=== PATIENT | male | born 1950 | race Caucasian/White ===

== ENCOUNTER 2018-10-13 10:06 | Emergency (ER) | payer MEDICARE, SELFPAY ==
[2018-10-13] VITALS (34 sets, daily range): BP systolic 96–116; BP diastolic 41–66; PULSE 86–105; RESP 16–17; TEMP 37.2–37.7; O2SAT 93–100
--- NOTE | 2018-10-13 10:08 | W.ED.GENAD ---
Discharge Plan Disposition Patient Disposition: [facility] Condition: Stable Discharge Details Chief Complaint: Chest Pain Clinical Impression: Pericarditis, Pericardial effusion, Chest pain Primary Care Provider: Guillaume Kline ED Provider: Valorie Meneses Home Meds and New Rx's Prescriptions: No Action clonazepam 1 mg tablet 1 mg PO BID RF: 0 benztropine 0.5 mg tablet 0.5 mg PO BID RF: 0 quetiapine 100 MG tablet 200 mg PO DAILY Qty: 180 RF: 3 metformin 1,000 MG tablet 1,000 mg PO BID Qty: 180 RF: 3 atorvastatin 10 mg tablet 10 mg PO QPM Qty: 30 RF: 11 duloxetine [Cymbalta] 60 MG capsule,delayed release(DR/EC) 60 mg PO DAILY RF: 0 aripiprazole [Abilify] 30 MG tablet 30 mg DAILY RF: 0 Discharge Data Discharge Date/Time-TO BE ENTERED AT DEPARTURE: 10/13/18 14:18 Medical Decision Making 68yo M w/ a h/o schizophrenia, anxiety, depression and pericarditis who presents with constant substernal achy chest pain that started while eating last night. Pain worse with deep breath, walking sitting up. Currently admits to some shortness of breath. Blood pressure mildly hypertensive, heart rate 104, temp 99.8, O2 sat 90% on room air, increased to 96% on 2L. EKG notes a rate of 111, sinus, EKG questions and ST elevation in inferior lateral leads. There is a questionable less than [address] elevation 2, 3, aVF with T wave inversion in aVL. This appear significantly different than EKG from 2015. Will send EKGs to [facility] cardiology for review. 1100 -- d/w [facility] transfer center -does not appear consistent with ST elevation. If concerned about STEMI, recommend treatment with Plavix and heparin. Will repeat EKG at this time. Labs reviewed and note a white blood cell count of 13, hemoglobin 10.1, troponin negative, electrolytes within normal limits. 1105 -- 2nd EKG notes a slight increase in ST elevation and II, III and aVF but appears more c/w IA depression in inferolateral leads. EKG sent to [facility] cardiology. Plan was for CT chest due to pleuritic pain. Will obtain stat portable chest x-ray. D/w [facility] cardiology - there is a questionable ST elevation in lead II but this is not continuous and agrees that this appears more consistent with IA depression in the inferolateral leads. Presentation appears more likely consistent with pericarditis. Does still recommend treatment with plavix and heparin, trending troponins. 1230 --CT negative for PE. CT notes a 14 mm moderate-sized pericardial effusion. Also noted multiple bilateral pulmonary nodules and lymphadenopathy at the right hilum. Chest x-ray negative. 1240 --discussed with hospitalist. Does not feel comfortable with keeping patient here at this time as there is no echo capability or cardiology available until Monday. 1300 -- d/w [facility] cardiology -agrees that this appears more consistent with pericarditis with pericardial effusion. Recommends holding heparin drip at this time. Patient has received 1 L IV fluids and blood pressure still slightly low 96/48. Heart rate improved to 90s. Accepts patient for transfer to [facility] ED. Accepting physician Dr. Javier Santiago. Medical Records Medical records reviewed: Yes I reviewed the patient's medical records. ECG Data Attestation: I personally reviewed and interpreted this ECG (s) as follows: Interpretation: 1011 -- rate of 111, sinus, questionable less than [address] elevation in 2, 3, aVF. IA depression in II, III, aVF, V5-6. T wave inversion in aVL. QTC 429. QRS 98. 1104 -- rate of 99, sinus, questionable [address] elevation noted in 2, 3, aVF, Questionable less than [address] elevation in V5 and V6. Appears more consistent with IA depression in II, III, aVF, V5-[address] elevation. T wave inversion in aVL. QTc 416. QRS 82. HPI General Mode of arrival: EMS. Date/Time Provider Initiated Documentation: 10/13/18 10:11. Limitations to Documentation: no limitations. Information obtained by: patient. HPI Narrative: Patient is a 60-year-old male with history of anxiety, depression, schizophrenia and pericarditis who presents with chest pain since last night. He describes pain is constant, achy, substernal which started when he was eating [employer] last evening. He states the pain is worse with sitting up, walking around and with deep breath. He states that he takes a deep breath the pain radiates from his middle chest out to both sides. He states the pain is better with rest and when he exhales. He was given nitro in route per EMS and admits to some relief but states the pain is returned and is now 5/10. He states it has been 5/10 at its worst. He states he did not sleep at all last night due to the pain. He admits to waking up this morning and feeling dizzy. He also admits to intermittent shortness of breath. He states he possibly had flu 2 months ago but states this was untreated. He does admit to occasional cough with white or yellow sputum. He denies syncope, nausea, vomiting, recent travel, recent surgery, or leg pain or swelling. He was also given 324 mg of aspirin in route per EMS. Related Data Home Medications Medication Instructions Recorded Confirmed duloxetine [Cymbalta] 60 mg PO DAILY 10/13/12 10/13/18 aripiprazole [Abilify] 30 mg DAILY 08/07/14 10/13/18 quetiapine 200 mg PO DAILY #180 tab-cap 06/30/17 10/13/18 metformin 1,000 mg PO BID #180 tab-cap 01/02/18 10/13/18 benztropine 0.5 mg tablet 0.5 mg PO BID 05/02/18 10/13/18 clonazepam 1 mg tablet 1 mg PO BID 05/02/18 10/13/18 atorvastatin 10 mg tablet 10 mg PO QPM #30 tab 08/01/18 10/13/18 Previous Rx's Medication Instructions Recorded quetiapine 200 mg PO DAILY #180 tab-cap 06/30/17 metformin 1,000 mg PO BID #180 tab-cap 01/02/18 atorvastatin 10 mg tablet 10 mg PO QPM #30 tab 08/01/18 Allergies Allergy/AdvReac Type Severity Reaction Status Date / Time No Known Allergies Allergy Unverified 05/02/18 14:53 Review of Systems Review of Systems All systems reviewed & are unremarkable except as noted in HPI and below Constitutional Reports as per HPI, Reports chills and Denies fever(s) Eyes Denies blurry vision ENT Reports dizziness, Denies sore throat and Denies throat swelling Cardiovascular Reports chest pain, Reports chest pain with activity and Reports dyspnea Respiratory Denies cough, Reports pain on inspiration and Reports dyspnea Gastrointestinal Denies abdominal pain, Denies diarrhea and Denies vomiting Genitourinary Denies hematuria and Denies dysuria Musculoskeletal Denies back pain and Denies numbness Integumentary/Breasts Denies lesions and Denies rash Neurologic Reports dizziness, Denies focal weakness and Denies numbness Allergic/Immunologic Denies throat swelling [facility] Medical History Pericarditis (Acute) Anxiety (Chronic) Depression (Chronic) Schizophrenia (Chronic) Surgical History No significant past surgical history (Acute) Family History Mother No problems noted. Father Neoplasm Sister Depression Sister No problems noted. Brother Heart disease Asthma Daughter No problems noted. Social History Smoking/Tobacco Use Status: Former Tobacco Use Alcohol Intake: never Drug use: Never Substance use type: does not use Do you feel safe at home: Yes Do you feel safe in your relationship?: Yes Exam Const General: cooperative and no acute distress Orientation: alert, awake and oriented x3 HENMT Head: normal to inspection Face and sinus: normal facial exam Eyes General: appearance normal, both eyes and all related structures EOM: EOM intact bilaterally Neck Neck: normal visual inspection and No submandibular swelling Lymphatic: no lymphadenopathy noted Chest Chest: normal inspection of the chest and no tenderness Resp Effort & Inspection: normal respiratory effort and able to speak in complete sentences Auscultation: clear to auscultation bilaterally Cardio Rate: regular rate Rhythm: regular rhythm GI Inspection: normal to inspection Palpation: soft, not firm, not rigid and nontender Auscultation: normal bowel sounds Skin General skin exam: no rashes or lesions noted Neuro General: alert, awake and oriented x3 Cognition: normal cognition Speech: speech normal Motor: muscle tone normal throughout Sensory Exam: no sensory deficits noted Extrem General: normal to inspection, full ROM, no calf tenderness bilaterally and no edema Psych Appearance: grossly normal Mental Status: mental status grossly normal Speech and Movement: speech and movement normal Affect: normal affect
--- NOTE | 2018-10-13 10:11 | NUR.NOTE ---
pt developed 4/10 chest pain last night that has persisted to this morning at which point he called the ambulance
[2018-10-13 10:30] LABS: Abs Immature Grans 0.03 k/cumm (0.0-0.09); Absolute Basophil Count 0.03 k/cumm (0.0-0.2); Absolute Lymphocyte Count 1.09 k/cumm (1.2-3.4); Basophils % 0.2; Eosinophils % 0.7; HCT 32.2 % (40.0-50.0); HGB 10.1 g/dL (13.5-17.5); Immature Grans % 0.2; Mean Corp. HGB Concentration 31.4 g/dL (32.0-36.0); Mean Corpuscular Hemoglobin 24.3 pg (27.0-33.0); Mean Corpuscular Volume 77.6 fL (80-95); Monocytes % 11.5; Neutrophils % 79.4; Platelet Count 249 x1000/uL (130-400); RBC 4.15 m/cumm (4.50-6.00); RBC Distribution Width 15.4 % (11.8-14.1)
[2018-10-13 10:49] LABS: ALT 20 U/L (12-78); AST 16 U/L (15-37); Absolute Monocyte Count 1.56 k/cumm (0.11-0.7); Albumin 3.2 g/dL (3.4-5.0); Alkaline Phosphatase 85 U/L (46-116); Anion Gap 8.3 mmol/L (3-11); BUN 16 mg/dL (7-18); Bilirubin, Total 0.4 mg/dL (0.2-1.0); CO2 26.7 mmol/L (21.0-32.0); CREATININE 0.93 mg/dL (0.70-1.30); Calcium 8.7 mg/dL (8.5-10.1); Chloride 102 mmol/L (98-107); Glucose 131 mg/dL (70-100); Magnesium 1.8 mg/dL (1.8-2.4); Potassium 4.3 mmol/L (3.5-5.1); Sodium 137 mmol/L (136-145); Total Protein 7.3 g/dL (6.4-8.2)
[2018-10-13 10:50] LABS: Troponin I < 0.02 ng/mL (0.00-0.06)
[2018-10-13] MEDS: Normal Saline 250 ML 500 ML IV (10:53)
--- NOTE | 2018-10-13 11:06 | DI.COMBO_ITS ---
SYMPTOM/DIAGNOSIS: CHEST PAIN, SOB, ? PE PE CHEST CT: CT angiography was performed with multi slice acquisition and multi planar and 3D reconstruction. CT scan of the chest was performed according to the pulmonary embolus protocol. There is no evidence of a pulmonary embolus. The thoracic aorta is of normal caliber. No evidence of a thoracic aortic aneurysm is identified. No evidence of thoracic aortic dissection is present. Heart size is within normal limits. There is a moderate sized pericardial effusion measuring 1.4 cm. in maximum thickness. No evidence of right ventricular dysfunction is seen. No significant thoracic adenopathy is identified. There does appear to be a small soft tissue nodule measuring less than 1 cm. in short axis diameter in the region of the right hilum. No pleural effusion or pneumothorax is identified. No focal consolidating infiltrates are seen. There is mild dependent atelectatic change in the lung bases. There is a triangular nodule adjacent to the left major fissure. This may represent a small lymph node. Pulmonary nodule cannot be excluded. There is a tiny nodular density in the right lung apex. This is nonspecific. Degenerative changes are seen in the spine. IMPRESSION: 1. No evidence of a pulmonary embolus, thoracic aortic dissection or aneurysm. 2. Moderate sized pericardial effusion. 3. Pulmonary nodules as described above. Follow up as clinically appropriate taking into consideration the patient's pulmonary history. Follow up may include a repeat CT scan of the chest in 6-12 months. PORTABLE AP CHEST: Comparison is made with 08/07/14. The heart is normal in size. The lungs are clear. The mediastinal structures and pleura appear intact. CONCLUSION: Normal chest.
[2018-10-13] MEDS: Clopidogrel 300 MG TAB PO (11:15)
[2018-10-13 11:16] LABS: PTT Activated 22.7 sec (21.0-31.4); Prothrombin Time 9.9 sec (9.3-11.0)
[2018-10-13] MEDS: Omnipaque 350 MG/ML 100 ML BTL IJ (11:44)
[2018-10-13] MEDS: Normal Saline Flush 10 ML SYR IVP (11:45)
[2018-10-13 12:05] LABS: ESR 43 MM/HR (1-20)
[2018-10-13] MEDS: Heparin 5,000 UNITS/ML VIAL 4000 UNITS IV (12:09)
[2018-10-13] MEDS: Normal Saline 1,000 ML 125 ML IV (12:10)
--- NOTE | 2018-10-13 12:17 | DI.VRAD_ITS ---
EXAM: XR Chest, 1 View EXAM DATE/TIME: 10/13/2018 11:07 AM CLINICAL HISTORY: 68 years old, male; Signs and symptoms; Other: Chest pain, SOB, R/O acute disease TECHNIQUE: Imaging protocol: XR of the chest, 1 view. COMPARISON: CR CHEST 2 VIEWS PA,LAT 08/07/2014 4:52 PM FINDINGS: Lungs: Mild left basilar atelectasis. No consolidation. Pleural space: Unremarkable. No pleural effusion. No pneumothorax. Heart/Mediastinum: Unremarkable. No cardiomegaly. Bones/joints: Unremarkable for age. IMPRESSION: Negative chest exam. Dictated and Authenticated by: Ritu Krause MD. Ordering:HORTENCIA Eugene MD
[2018-10-13] MEDS: Acetaminophen 500 MG TAB (12:26)
--- NOTE | 2018-10-13 12:31 | DI.VRAD_ITS ---
EXAM: CT Angiography Chest With Contrast EXAM DATE/TIME: 10/13/2018 10:30 AM CLINICAL HISTORY: 68 years old, male; Signs and symptoms; Other: Pleuritic chest pain, R/O pe TECHNIQUE: Imaging protocol: Axial computed tomographic angiography images of the chest with intravenous contrast using CT angiography protocol. Coronal and sagittal reformatted images were created and reviewed. 3D rendering: MIP reconstructed images were created and reviewed. Radiation optimization: All CT scans at this facility use at least one of these dose optimization techniques: automated exposure control; mA and/or kV adjustment per patient size (includes targeted exams where dose is matched to clinical indication); or iterative reconstruction. Contrast material: OMNIPAQUE 350 Contrast volume: 84 ml Contrast route: IV COMPARISON: CR XR PORTABLE CHEST AP 10/13/2018 11:14 AM FINDINGS: Pulmonary arteries: Unremarkable. No pulmonary emboli. Aorta: No aortic aneurysm or dissection. Small focal convex bulge along the anterior aspect of the aortic isthmus, consistent with a congenital aortic ductus diverticulum. Lungs: Multiple tiny, 3 mm, noncalcified pulmonary nodules in both lung apices (best seen on the coronal reformatted images). 5 mm noncalcified pulmonary nodule in the left lung apex (coronal series 9 image 63). 5 mm noncalcified pleural-based pulmonary nodule in the left lower lobe along the major fissure (axial series 6 image 66). There is minimal bibasilar atelectasis. Pleural space: Unremarkable. No pneumothorax. No pleural effusion. Heart: Heart is normal in size. Moderate size pericardial effusion measuring 14 mm in maximum thickness. Prominent pericardial fat-pad. Lymph nodes: Small area of soft tissue thickening or lymphadenopathy at the right hilum (axial series 6 images 62-65). Bones/joints: Unremarkable. No acute fracture. Soft tissues: Unremarkable. IMPRESSION: 1. Negative for pulmonary embolism, aortic aneurysm or dissection. 2. Pericardial effusion. 3. Small area of soft tissue thickening or lymphadenopathy at the right hilum. If no prior CT exams available for comparison, consider followup CT in 3 months. 4. Multiple bilateral pulmonary nodules measuring 5 mm or less. Dictated and Authenticated by: Ritu Krause MD. Ordering:HORTENCIA Eugene MD
[2018-10-13 12:48] LABS: Lactate-non-spesis 1.6 mmol/l (0.6-1.4)
[2018-10-13 13:07] LABS: Troponin I < 0.02 ng/mL (0.00-0.06)
== END 2018-10-13 14:18 | disposition short-term general hospital (02) ==
PROVIDERS: Emergency Provider Physician Assistant; PCP Family Medicine
DX: I30.9 Acute pericarditis, unspecified (principal); I31.3 Pericardial effusion (noninflammatory); R07.9 Chest pain, unspecified
CPT/HCPCS: 36410; 36415; 71275; 80053; 85652; 87040; 93005; 96361; 96374; 99285; 71045; 83605; 83735; 84484; 85025; 85610; 85730; 86140; 93010; J1644; J3490

== ENCOUNTER → 2018-11-07 09:35 | Outpatient (BNVA) | payer MEDICARE, SELFPAY | PROVIDERS: PCP Family Medicine; Visit Provider Student in an Organized Health Care Education/Training Program | DX: I30.1 Infective pericarditis (principal); E11.9 Type 2 diabetes mellitus without complications | CPT/HCPCS: 99204; 99214 ==

== ENCOUNTER 2018-11-07 10:29 | Outpatient (CLI) | payer MEDICARE, SELFPAY ==
[2018-11-07 11:09] LABS: Abs Immature Grans 0.01 k/cumm (0.0-0.09); Absolute Basophil Count 0.06 k/cumm (0.0-0.2); Absolute Eosinophil Count 0.76 k/cumm (0.0-0.7); Absolute Lymphocyte Count 2.59 k/cumm (1.2-3.4); Absolute Monocyte Count 0.82 k/cumm (0.11-0.7); Absolute Neutrophil Count 3.62 k/cumm (1.2-6.7); Basophils % 0.8; Eosinophils % 9.7; HCT 34.5 % (40.0-50.0); HGB 10.6 g/dL (13.5-17.5); Immature Grans % 0.1; Mean Corp. HGB Concentration 30.7 g/dL (32.0-36.0); Mean Corpuscular Hemoglobin 23.7 pg (27.0-33.0); Mean Platelet Volume 9.4 fL (8.0-11.0); Monocytes % 10.4; Platelet Count 230 x1000/uL (130-400); RBC 4.48 m/cumm (4.50-6.00); RBC Distribution Width 15.6 % (11.8-14.1); White Blood Cell Count 7.86 k/cumm (4.4-10.8)
[2018-11-07 11:56] LABS: BUN 14 mg/dL (7-18); CREATININE 0.94 mg/dL (0.70-1.30); Calcium 9.4 mg/dL (8.5-10.1); Chloride 102 mmol/L (98-107); Cholesterol 137 mg/dL (50-200); Glucose 121 mg/dL (70-100); HDL Cholesterol 51 mg/dL (40-60); LDL CHOLESTEROL 73 mg/dL (<100); Potassium 4.4 mmol/L (3.5-5.1); Sodium 139 mmol/L (136-145); Triglyceride 83 mg/dL (30-150)
[2018-11-07 12:10] LABS: C-Reactive Protein 0.28 mg/dL (0.0-0.3)
[2018-11-07 14:47] LABS: Iron 18 ug/dL (50-175); Total Iron Binding Capacity 361 ug/dL (250-450)
[2018-11-07 17:27] LABS: Ferritin 12 ng/mL (8-388)
[2018-11-08 08:57] LABS: Cyclic Citrullinated Peptide <2.5 U/mL (<5.0)
[2018-11-08 10:32] LABS: Transferrin 285 mg/dL (201-352)
[2018-11-08 10:32] LABS: Rheumatoid Factor <8 IU/mL (<12.5)
[2018-11-08 14:18] LABS: ANA Interpretation Negative (NEGAT)
== END 2018-11-07 10:49 ==
PROVIDERS: PCP Family Medicine; Visit Provider Student in an Organized Health Care Education/Training Program
DX: I30.9 Acute pericarditis, unspecified (principal); E11.9 Type 2 diabetes mellitus without complications; E78.5 Hyperlipidemia, unspecified
CPT/HCPCS: 36415; 80048; 80061; 83721; 86200; 99204; 99214; 82728; 83540; 83550; 84466; 85025; 86038; 86140; 86431

== ENCOUNTER 2019-01-29 00:15 | Outpatient (CLI) | payer MEDICARE, SELFPAY ==
--- NOTE | 2019-01-29 13:50 | MERGE_ITS ---
*[facility]* *[facility]* [address] [place] [address] Date of study: 01/29/2019 Transthoracic Echocardiography M-mode, limited 2D, limited spectral Doppler, and color Doppler *STUDY CONCLUSIONS* Summary: 1. Pericardium, extracardiac: There was no pericardial effusion. 2. Left ventricle: Systolic function was normal. The estimated ejection fraction was 60-65%. 3. Right ventricle: The cavity size was normal. Wall thickness was normal. Systolic function was normal. 4. Inferior vena cava: The vessel was patent and normal in size. The respirophasic diameter changes were in the normal range (greater than or equal to 50%). *PATIENT PRESENTATION* Height: 180.3cm (71in ) S/D Pressure: 118 / 72 Weight: 108.9kg (239.5lb ) BSA: 2.37m^2 Test start time: 01:55 PM. Test stop time: 02:25 PM. PERFORMING Unknown CONSULTING Antony Diaz ORDERING Antony Diaz REFERRING Antony Diaz PERFORMING [facility] MACHINE MARKER RT Allen (Brandi)(CAROL)MAMI *PROCEDURE DATA* Procedure information: This study was interpreted by [facility]. Pertinent images and digital data are archived for permanent storage and are available for subsequent review. No prior study was available for comparison. Study status: Routine. Transthoracic echocardiography. M-mode, limited 2D, limited spectral Doppler, and color Doppler. A Transthoracic Echocardiogram was performed. Scanning was performed from the parasternal, apical, and subcostal acoustic windows. Images were obtained using an [id number] cardiac ultrasound machine. Image quality was adequate. Study completion: The patient tolerated the procedure well. There were no complications. History: PMH: Pericardial effusion i31.3 limited to assess pericardial effusion . Per MD. *CARDIAC ANATOMY* Left ventricle: Systolic function was normal. The estimated ejection fraction was 60-65%. Aortic valve: Mildly thickened, mildly calcified leaflets. Mitral valve: Structurally normal valve. Mobility was not restricted. Doppler: Transvalvular velocity was within the normal range. There was no evidence for stenosis. There was no significant regurgitation. Left atrium: The atrium was normal in size. Right ventricle: The cavity size was normal. Wall thickness was normal. Systolic function was normal. Tricuspid valve: Structurally normal valve. Doppler: Transvalvular velocity was within the normal range. There was no evidence for stenosis. There was no significant regurgitation. Right atrium: The atrium was normal in size. Pericardium: There was no pericardial effusion. Systemic veins: Inferior vena cava: Well visualized. The vessel was patent and normal in size. The respirophasic diameter changes were in the normal range (greater than or equal to 50%). Baseline ECG: Normal sinus rhythm. Measurements Left ventricle Value LV end-diastolic volume, 1-p A2C 75 ml LV ejection fraction, 1-p A2C 60 % LV end-diastolic volume, 1-p A4C 89 ml LV ejection fraction, 1-p A4C 52 % Legend: (L) and (H) guillermo values outside specified reference range. I have personally reviewed the images and have reviewed and edited the reported findings. Electronically signed by Antony Diaz 01/29/2019 16:27
== END 2019-01-29 00:35 ==
PROVIDERS: PCP Family Medicine; Visit Provider Internal Medicine Interventional Cardiology
DX: I31.3 Pericardial effusion (noninflammatory) (principal); I30.9 Acute pericarditis, unspecified; I10 Essential (primary) hypertension; E78.5 Hyperlipidemia, unspecified
CPT/HCPCS: 93306; 93307

== ENCOUNTER → 2019-04-16 12:51 | Outpatient (BNVA) | payer MEDICARE, SELFPAY | PROVIDERS: PCP Family Medicine; Referring Provider Family Medicine; Visit Provider Internal Medicine Cardiovascular Disease | DX: I30.1 Infective pericarditis (principal); E66.9 Obesity, unspecified | CPT/HCPCS: 99204; 99215 ==

== ENCOUNTER 2021-06-20 21:26 | Emergency (ER) | payer MEDICARE, SELFPAY ==
[2021-06-20] VITALS (14 sets, daily range): BP systolic 115–162; BP diastolic 63–96; PULSE 97–157; RESP 17–30; TEMP 36.6; O2SAT 92–100
--- NOTE | 2021-06-20 21:30 | RT.EKG_ITS ---
APPROVED REPORT Exam: Resting ECG Reason for Exam: Fall, Dizziness Patient Location: E HR:101 bpm ECG Measurements Heart Rate 101 AXIS OH 190 P 50 QRSd 98 QRS -31 QT 335 T 78 QTc 434 Conclusion Sinus tachycardia...rate> 99 Left axis deviation...QRS axis (-30,-90) I have reviewed and interpreted ECG and agree with software generated interpretation. No acute ST changes.
--- NOTE | 2021-06-20 21:39 | ED.GENADUL_ITS ---
Discharge Plan Disposition Patient Disposition: HOME Condition: Stable Discharge Details Clinical Impression: Diarrhea, Weakness generalized Primary Care Provider: Guillaume Kline ED Provider: Greg Malcolm [place] Meds and New Rx's Prescriptions: Continued benztropine 0.5 mg tablet 0.5 mg PO BID RF: 0 clonazepam 1 mg tablet 0.5 mg PO BID RF: 0 quetiapine 200 mg tablet extended release 24 hr 200 mg PO QHS RF: 0 ibuprofen 600 mg tablet 600 mg PO Q8H PRN RF: 0 atorvastatin 10 mg tablet 10 mg PO QPM Qty: 90 RF: 3 metformin 1,000 mg tablet 1,000 mg PO BID Qty: 180 RF: 3 duloxetine [Cymbalta] 60 MG capsule,delayed release(DR/EC) 60 mg PO DAILY RF: 0 aripiprazole [Abilify] 30 MG tablet 30 mg DAILY RF: 0 Discontinued Shingrix Adjuvant Component-PF Suspension 0.5 ml IM DAILY Qty: 0.5 RF: 1 Discharge Instructions Instructions: Acute Diarrhea (ED), Weakness (ED) Additional Instructions: Please rest over the next couple of days and please be sure to drink plenty of fluids to stay hydrated. You should follow-up with primary care next week for reevaluation and repeat laboratory studies, specifically a CBC. Return to ED for worsening/persistent abdominal pain, bloody diarrhea, chest pain, shortness of breath. Referrals: Guillaume Kline MD [Primary Care Provider] - Discharge Data Discharge Date/Time-TO BE ENTERED AT DEPARTURE: 06/21/21 03:35 Medical Decision Making <Argentina Huber - Last Filed: 06/21/21 17:10> 70-year-old male presents to the ER via EMS with chief complaint of dizziness, upset stomach and loose stools. Patient reports that he lost balance and fell onto the bathroom floor. He denies any loss of consciousness or hitting his head. He was able to get up onto the toilet where he said that he had diarrhea. He also reports some diarrhea which started mildly on Monday. He is complaining of some left upper quadrant pain. She does endorse chills denies any fever chest pain or shortness of breath. He denies any hematochezia or mucus in his stools. He has a past medical history of anxiety, depression, pericarditis, schizophrenia, diabetes mellitus. He is tremulous which she reports is new. He also appears pale to me. Cardiac work-up ordered including serial troponins, EKG, lipase, CBC CMP. Liter of LR. EKG was reviewed by Dr. Newton Malcolm MD ER attending, please see his official report review, old EKG available for review. Hemoccult stool negative. Patient does have some brown loose stools noted no underwear. CBC shows white blood cell count of 17.97 hemoglobin of 8.4 hematocrit 34 absolute neutrophils 15.78, CMP shows an anion gap of 12.2 BUN 21 creatinine 1.5 glucose [address] abdomen pelvis with contrast ordered due to the anemia diarrhea. Patient has received a liter of LR and 4 mg of Zofran IV. COMPARISON: CT CHEST PE CTA 10/13/2018 11:24 AM FINDINGS: Liver: 5 cm right hepatic cyst. Gallbladder and bile ducts: Normal. No calcified stones. No ductal dilation. Pancreas: Normal. No ductal dilation. Spleen: Normal. No splenomegaly. Adrenal glands: Normal. No mass. Kidneys and ureters: Normal. No hydronephrosis. Stomach and bowel: Evaluation of the colonic wall is limited due to collapse, no definite wall thickening identified. No bowel obstruction. Appendix: No evidence of appendicitis. Intraperitoneal space: Unremarkable. No free air. No significant fluid collection. Vasculature: Unremarkable. No abdominal aortic aneurysm. Lymph nodes: Unremarkable. No enlarged lymph nodes. Urinary bladder: Unremarkable as visualized. Reproductive: Unremarkable as visualized. Bones/joints: Unremarkable. No acute fracture. Soft tissues: Unremarkable. IMPRESSION: No acute finding. Thank you for allowing us to participate in the care of your patient. Dictated and Authenticated by: Javier Barajas MD Care is to be handed off to ED provider Dr. Newton Malcolm MD pending Urinalysis and repeat troponin at 1230. <Greg Malcolm MD - Last Filed: 06/21/21 01:19> Patient signed out to me pending return of the rest of his laboratory studies and repeat EKG and troponin. He had presented with onset of abdominal cramping, diarrhea, dizziness. Feels much better at this point. Never experienced chest pain, shortness of breath, syncope. White count is elevated and hemoglobin low. Per EDWIN Huber stool was Hemoccult negative. No recent hemoglobin with for comparison. CT scan of the abdomen pelvis negative for acute pathology. Repeat EKG and troponin unchanged. Feel patient is safe for discharge home. Will need follow-up with primary care next week for reevaluation and should probably repeat a CBC. Discussed the importance of staying hydrated over the weekend and resting. Return to ED for worsening/persistent abdominal pain, bloody stool, chest pain, shortness of breath, other concerns. Lab Data Lab results reviewed: Yes I reviewed the patient's lab results. ECG Data Attestation: I personally reviewed and interpreted this ECG (s) as follows: Prior ECG tracings: available for review Interpretation: see EKG HPI <Argentina Huber - Last Filed: 06/21/21 17:10> General Mode of arrival: EMS . Date/Time Provider Initiated Documentation: 06/20/21 21:32 . Limitations to Documentation: no limitations . Information obtained by: patient, EMS and old records reviewed . HPI Narrative: 70-year-old male presents to the ER via EMS with chief complaint of dizziness, upset stomach and loose stools. Patient reports that he lost balance and fell onto the bathroom floor. He denies any loss of consciousness or hitting his head. He was able to get up onto the toilet where he said that he had diarrhea. He also reports some diarrhea which started mildly on Monday. He is complaining of some left upper quadrant pain. She does endorse chills denies any fever chest pain or shortness of breath. He denies any hematochezia or mucus in his stools. He has a past medical history of anxiety, depression, pericarditis, schizophrenia, diabetes mellitus. He is tremulous which she reports is new. He also appears pale to me. Related Data Home Medications Medication Instructions Recorded Confirmed duloxetine [Cymbalta] 60 mg PO DAILY 10/13/12 06/20/21 aripiprazole [Abilify] 30 mg DAILY 08/07/14 06/20/21 benztropine 0.5 mg tablet 0.5 mg PO BID 05/02/18 06/20/21 ibuprofen 600 mg tablet 600 mg PO Q8H PRN tab 10/17/18 06/20/21 clonazepam 1 mg tablet 0.5 mg PO BID tab 05/10/19 06/20/21 quetiapine 200 mg tablet,extended 200 mg PO QHS 05/10/19 06/20/21 release 24 hr atorvastatin 10 mg tablet 10 mg PO QPM #90 tab 07/21/20 06/20/21 metformin 1,000 mg tablet 1,000 mg PO BID #180 tab-cap 09/11/20 06/20/21 Previous Rx's Medication Instructions Recorded atorvastatin 10 mg tablet 10 mg PO QPM #90 tab 07/21/20 metformin 1,000 mg tablet 1,000 mg PO BID #180 tab-cap 09/11/20 Allergies Allergy/AdvReac Type Severity Reaction Status Date / Time No Known Allergies Allergy Unverified 06/20/21 21:47 General Stated Complaint: Dizzy/Sync SOLO: 2 Review of Systems <Argentina Huber - Last Filed: 06/21/21 17:10> All systems reviewed & are unremarkable except as noted in HPI and below Gastrointestinal Gastrointestinal: Reports diarrhea, Reports loose stools, Reports nausea and Denies vomiting Genitourinary Genitourinary: Denies dysuria Musculoskeletal Musculoskeletal: Reports muscle weakness (Generalized weakness) PFS <Argentina Huber - Last Filed: 06/21/21 17:10> All Active Problems (Updated 06/21/21 @ 01:16 by Greg Malcolm MD) Diarrhea (Acute) Weakness generalized (Acute) Impacted cerumen of both ears (Acute) Pericarditis (Acute) Diabetes mellitus (Chronic) Rectus diastasis (Acute 12/06/16) Obesity (BMI 30-39.9) (Acute 10/04/17) Dental caries (Acute 12/06/16) Medical History (Updated 06/21/21 @ 01:16 by Greg Malcolm MD) Anxiety Depression Pericarditis Schizophrenia Surgical History No significant past surgical history Family History Mother No problems noted. Father Neoplasm BLADDER Sister Depression Sister No problems noted. Brother Heart disease Asthma Daughter No problems noted. Social History Smoking/Tobacco Use Status: Former Tobacco Use Tobacco: How many years used: 4 Smoking risk assessment performed?: Yes Alcohol Intake: never Drug use: Never Substance use type: does not use Do you feel safe at home: Yes Do you feel safe in your relationship?: Yes Exam <Argentina Huber - Last Filed: 06/21/21 17:10> Narrative Exam Narrative: Constitutional: Alert and oriented x3. Appears stated age. Normal body habitus. Head: Normocephalic, no trauma. Eyes: Pupils PERRL, Red reflex noted, EOM's intact. Eyelids symmetrical without lesions, discharge, or swelling. ENT: Bilateral TM's WNL, External ear normal to inspection, no mastoid TTP, swelling, or erythema, Nasal turbinates WNL, no nasal discharge. Normal dentition, Posterior pharynx WNL, no exudate. Chest: RRR, Normal S1, S2, distal pulses intact. Resp: Lungs clear to auscultation bilaterally, no wheezes, rales, or rhonchi. Abdomen: Soft, non-distended, Normoactive bowel sounds all 4 quads. Nontender to palpation all 4 quadrants. Musculoskeletal: Normal gait, 5/5 strength to all four extremities. Skin: No suspicious rashes or lesions. Capillary refill less than 2 sec. pale Neurologic: Cranial nerves II-XII intact. Alert and oriented x 3. Motor: No deficits noted. Sensory: Intact bilaterally all 4 extremities. Reflexes: DTR's intact bilaterally.. Patient is tremulous. Hematologic/Lymphatic: No ecchymosis, no lymphadenopathy. Course <Argentina Huber - Last Filed: 06/21/21 17:10> Vital Signs Vital signs: Vital Signs Temperature 36.6 C 06/20/21 21:28 Pulse 109 H 06/20/21 21:28 Respiratory Rate 18 06/20/21 21:28 Blood Pressure 155/68 H 06/20/21 21:28 Pulse Oximetry 92 06/20/21 21:28 Temperature 36.6 C 06/20/21 21:28 Temperature Source Skin 06/20/21 21:28 Pulse 109 H 06/20/21 21:28 Respiratory Rate 18 06/20/21 21:28 Blood Pressure 155/68 H 06/20/21 21:28 Blood Pressure Position Supine 06/20/21 21:28 Pulse Oximetry 92 06/20/21 21:28 Oxygen Delivery Method Room Air 06/20/21 21:28 Oxygen Flow Rate 0 06/20/21 21:28 Pain Level 3 06/20/21 21:28 Procedures <Argentina Huber - Last Filed: 06/21/21 17:10> Stool Hemoccult Procedural Steps Taken: stool placed in appropriate test area, developer placed on stool and control areas and controls appropriately positive and negative Hemoccult result: negative Sign Out <Argentina Huber - Last Filed: 06/21/21 17:10> Sign Out Data: Sign Out Comment: Pending Repeat Trop at 0032. Diarrhea, Dizziness, Fall. Hx of schizophrenia. CT abd/Pelvis Unremarkable. Last updated by Argentina Huber at 06/20/21 23:54
[2021-06-20 21:56] LABS: Abs Immature Grans 0.06 10^3/uL (0.0-0.06); Absolute Basophil Count 0.04 10^3/uL (0.0-0.2); Absolute Lymphocyte Count 0.99 10^3/uL (1.2-3.4); Absolute Monocyte Count 1.06 10^3/uL (0.1-0.8); Basophils % 0.2; Eosinophils % 0.3; HCT 30.4 % (40.0-50.0); HGB 8.4 g/dL (13.5-17.5); Immature Grans % 0.3; Lymphocytes % 5.5; MCH 18.6 pg (27.0-33.0); MCHC 27.6 % (32.0-36.0); MCV 67.4 fL (80-95); MPV 8.6 fL (8.0-11.0); Monocytes % 5.9; Neutrophils % 87.8; Nucleated RBC 0 %; Platelet Count 313 10^3/uL (130-400); RBC 4.51 10^6/uL (4.36-5.78); RDW 20.1 % (11.8-14.1); RDW-SD 47.9 fL; WBC 17.97 10^3/uL (4.4-10.8)
[2021-06-20 22:00] LABS: Absolute Eosinophil Count 0.05 10^3/uL (0.0-0.7); Absolute Neutrophil Count 15.78 10^3/uL (1.2-6.7)
[2021-06-20 22:02] LABS: Diff Comment RBC Morph Reviewed
[2021-06-20 22:11] LABS: ALT 20 U/L (16-63); AST 21 U/L (15-37); Albumin 3.9 g/dL (3.4-5.0); Alkaline Phosphatase 89 U/L (46-116); Anion Gap 12.2 mmol/L (3-11); BUN 21 mg/dL (7-18); Bilirubin, Total 0.7 mg/dL (0.2-1.0); CO2 24.8 mmol/L (21.0-32.0); CREATININE 1.5 mg/dL (0.70-1.30); Calcium 9.3 mg/dL (8.5-10.1); Chloride 101 mmol/L (98-107); Estimated GFR 46.27 (mL/min/1.73m2); Glucose 114 mg/dL (74-106); Lipase 238 U/L (73-393); Magnesium 2.3 mg/dL (1.8-2.4); Potassium 3.8 mmol/L (3.5-5.1); Sodium 138 mmol/L (136-145); Total Protein 8.8 g/dL (6.4-8.2); Troponin I < 0.05 ng/mL (<0.06)
[2021-06-20 22:12] LABS: Anisocytosis 2+; Microcytosis 3+; Poikilocytes 2+
[2021-06-20 22:13] LABS: Hypochromasia 2+; Polychromasia Present
[2021-06-20] MEDS: Ondansetron 4 MG/2 ML VIAL IVP (22:25)
[2021-06-20] MEDS: Lactated Ringers 1,000 ML 1000 ML IV (22:25)
--- NOTE | 2021-06-20 22:30 | DI.CT_ITS ---
Exam(s) CT ABDOMEN PELVIS W EXAM: CT ABDOMEN PELVIS W CLINICAL HISTORY: Dizziness, Diarrhea. TECHNIQUE: Imaging Protocol: Axial computed tomography images with coronal and sagittal reformatted images were created and reviewed CONTRAST MATERIAL: Intravenous: Omnipaque 100cc Oral: None COMPARISON: CT CT CHEST PE CTA from 10/13/2018 FINDINGS: VISUALIZED LUNG BASES: Mild increased markings in left lung base posterior basal segment left lower l obe. No effusions.. ABDOMEN: There is no ascites. LIVER: In the peripheral right hepatic lobe there is a 4.3 x 4.6 x 4.0 cm cyst. No solid hepatic ma sses. GALLBLADDER/BILIARY: No obvious gallbladder pathology. CBD is not dilated. PANCREAS: There is a prominent parenchymal calcification at the junction of the head and neck. There is no dilatation of the pancreatic duct. No obvious pancreatitis findings. No regional adenopathy. No vascular encasement. SPLEEN: Spleen is not enlarged. No obvious intrasplenic lesions. Splenic and portal veins are paten t. ADRENALS: There are no significant adrenal masses. KIDNEYS:No cysts evident. No solid renal masses. No calculi nor hydronephrosis.. ABDOMINAL AORTA: Abdominal aorta is not enlarged. LYMPH NODES:There is no retroperitoneal nor paraaortic adenopathy. ABDOMINAL WALL: No evidence of significant anterior abdominal wall nor inguinal hernia. GI: There is no evidence of bowel obstruction, free air, nor abscess. PELVIS: GI: No evidence of appendicitis.No evidence of sigmoid diverticulitis. LYMPH NODES: There is no intrapelvic nor inguinal adenopathy. REPRODUCTIVE: Prostate size is normal. URINARY BLADDER: There appears to be a noncalcified thin posteriorly located septum in the urinary bl adder, best appreciated on the coronal images (series 6/image 56) OSSEOUS: No significant osseous lesions. IMPRESSION: 1. No acute findings. 2. Solitary prominent right hepatic lobe cyst measuring up to 4.6 cm 3. 9 x 7 millimeter calcification in the pancreas at the junction of the head and neck. No pancreati c duct dilatation. No obvious pancreatitis. 4. Thin septum noted posteriorly the urinary bladder, right of center. RADIATION DOSE DELIVERED: 1,157.69mGy.cm Total DLP DATA REPOSITORY: All CT scans at this facility are submitted to the National Radiology Data Registry (NRDR) Dose Index Registry (DIR) with the [employer] (ACR). RADIATION OPTIMIZATION: All CT scans at this facility use at least one of these dose optimization te chniques: automated exposure control; mA and/or kV adjustment per patient size (includes targeted exa ms where dose is matched to clinical indication); or iterative reconstruction.
[2021-06-20] MEDS: Omnipaque 350 MG/ML 100 ML BTL IV (23:21)
--- NOTE | 2021-06-20 23:30 | RT.EKG_ITS ---
APPROVED REPORT Exam: Resting ECG Reason for Exam: chest pain Patient Location: E HR:105 bpm ECG Measurements Heart Rate 105 AXIS WI 211 P 75 QRSd 95 QRS -41 QT 328 T 73 QTc 434 Conclusion Sinus tachycardia...rate> 99 Borderline prolonged WI interval...WI >207, V-rate 91-120 Left axis deviation...QRS axis (-30,-90) There are no significant changes compared to prior EKG performed on 06/20/2021 at 21:44.
--- NOTE | 2021-06-20 23:48 | DI.VRAD_ITS ---
PROCEDURE INFORMATION: Exam: CT Abdomen And Pelvis With Contrast Exam date and time: 06/20/2021 10:42 PM Age: 70 years old Clinical indication: Other: Dizziness, diarrhea TECHNIQUE: Imaging protocol: Computed tomography of the abdomen and pelvis with contrast. Contrast material: OMNIPAQUE 350; Contrast volume: 100 ml; Contrast route: INTRAVENOUS (IV); COMPARISON: CT CHEST PE CTA 10/13/2018 11:24 AM FINDINGS: Liver: 5 cm right hepatic cyst. Gallbladder and bile ducts: Normal. No calcified stones. No ductal dilation. Pancreas: Normal. No ductal dilation. Spleen: Normal. No splenomegaly. Adrenal glands: Normal. No mass. Kidneys and ureters: Normal. No hydronephrosis. Stomach and bowel: Evaluation of the colonic wall is limited due to collapse, no definite wall thickening identified. No bowel obstruction. Appendix: No evidence of appendicitis. Intraperitoneal space: Unremarkable. No free air. No significant fluid collection. Vasculature: Unremarkable. No abdominal aortic aneurysm. Lymph nodes: Unremarkable. No enlarged lymph nodes. Urinary bladder: Unremarkable as visualized. Reproductive: Unremarkable as visualized. Bones/joints: Unremarkable. No acute fracture. Soft tissues: Unremarkable. IMPRESSION: No acute finding. Dictated and Authenticated by: Javier Barajas MD. Ordering:TWYLA Elaine MD
[2021-06-21 00:51] LABS: Bilirubin Negative (Negative); Blood Negative (Negative); Clarity Clear (Clear); Glucose Negative (Negative); Ketones Negative (Negative); Leukocyte Esterase Negative (Negative); Nitrite Negative (Negative); Specific Gravity 1.015 (1.005-1.025); Urobilinogen 0.2 EU/dL (Up TO 0.2); pH 5.5 (5-8)
[2021-06-21 00:55] LABS: Troponin I < 0.05 ng/mL (<0.06)
== END 2021-06-21 03:35 | disposition home or self-care (01) ==
PROVIDERS: Registered Nurse Emergency; Emergency Provider Emergency Medicine; PCP Family Medicine
DX: R19.7 Diarrhea, unspecified (principal); R53.1 Weakness; R42 Dizziness and giddiness; R07.9 Chest pain, unspecified; R10.12 Left upper quadrant pain
CPT/HCPCS: 36415; 80053; 83690; 93005; 96361; 96374; 99285; 74177; 81003; 83735; 84484; 85025; 93010; 99284; J2405; J3490

== ENCOUNTER 2023-12-19 05:18 | Outpatient (CLI) | payer MEDICARE, SELFPAY ==
[2023-12-19 14:58] LABS: CREATININE 1.3 mg/dL (0.70-1.30); Calculated LDL 48 mg/dL (<100); Cholesterol 137 mg/dL (<200); Estimated GFR 58.01 (mL/min/1.73m2); HDL Cholesterol 77 mg/dL (40-60); Triglyceride 62 mg/dL (<150)
== END 2023-12-19 05:19 | disposition home or self-care (01) ==
LOC: LBO 05:18
PROVIDERS: PCP Family Medicine; Visit Provider Family Medicine
DX: I10 Essential (primary) hypertension (principal); E78.5 Hyperlipidemia, unspecified
CPT/HCPCS: 36415; 80061; 82565

== ENCOUNTER 2024-06-21 16:28 | Outpatient (CLI) | payer MEDICARE, SELFPAY ==
--- NOTE | 2024-06-21 | DI.RAD_ITS ---
Exam(s) XR FOOT LT COMPLETE EXAM: XR FOOT LT COMPLETE CLINICAL HISTORY: N79.672 Pain in left foot. TECHNIQUE: 2D digital imaging was performed. COMPARISON: No exams were available for comparison FINDINGS: 3 views There is prominent soft tissue swelling over the dorsal aspect of the foot. There is no evidence of acute fracture or diastasis of the Lisfranc joint. Hallux valgus is noted. No metatarsal stress fracture seen. No pes planus. Calcification is noted in the insertional aspect of the Achilles tendon on the posterior aspect of the calcaneus and there is also small inferior freddy caneal spur noted. There is no calcification in the plantar fascia. Some degenerative changes noted in the dorsal aspect of the talonavicular joint. Also small calcific density measuring 3 x 1 millimeter at this level. IMPRESSION: Findings as above but no acute fractures evident. DATA REPOSITORY: RADIATION DOSE DELIVERED:
--- NOTE | 2024-06-21 | DI.US_ITS ---
Exam(s) US LOWER EXTREMITY VENOUS LT EXAM: US LOWER EXTREMITY VENOUS LT CLINICAL HISTORY: M79.605 Pain in left leg. TECHNIQUE: Lower extremity venous ultrasound performed using grayscale, color-flow, and spectral Do ppler analysis. COMPARISON: No exams were available for comparison FINDINGS: The common femoral, femoral and popliteal veins demonstrate normal compressibility, augmentation, and color Doppler. The posterior tibial and peroneal veins are patent. No saphenous vein thrombosis or other superficial venous thrombosis is seen. No hematoma or Goldsmith's cyst is seen. IMPRESSION: Negative lower extremity ultrasound. No evidence of DVT. DATA REPOSITORY:
--- NOTE | 2024-06-21 17:04 | DI.VRAD_ITS ---
PROCEDURE INFORMATION: Exam: US Duplex Left Lower Extremity Veins, Limited Exam date and time: 06/21/2024 4:35 PM Age: 73 years old Clinical indication: Other: Pain in left leg TECHNIQUE: Imaging protocol: Real-time duplex ultrasound of the left extremity with 2-D lindsey scale, color Doppler flow and spectral waveform analysis including responses to compression and other maneuvers (when performed) with image documentation. Limited exam focused on the left lower extremity veins. COMPARISON: CT ABDOMEN PELVIS W 06/20/2021 22:52 FINDINGS: Left deep veins: Unremarkable. The common femoral, femoral, proximal profunda femoral and popliteal veins are patent without thrombus. Normal Doppler waveforms. Normal compressibility and/or augmentation response. Superficial veins: Greater saphenous vein at the saphenofemoral junction is patent without thrombus. Soft tissues: Unremarkable. IMPRESSION: No evidence of deep vein thrombosis. Dictated and Authenticated by: Neena Martinez MD. Ordering:MARIA ESTHER Ambriz MD
--- NOTE | 2024-06-21 17:18 | DI.VRAD_ITS ---
PROCEDURE INFORMATION: Exam: XR Left Foot Exam date and time: 06/21/2024 4:58 PM Age: 73 years old Clinical indication: Other: Lt foot pain TECHNIQUE: Imaging protocol: Radiologic exam of the left foot. Views: 3 or more views. COMPARISON: US LOWER EXTREMITY VENOUS LT 21/06/2024 16:35 FINDINGS: Bones/joints: Mild degenerative changes of the 1st metatarsal phalangeal joint with hallux valgus deformity. No evidence for acute bony injury. Soft tissues: Soft tissue swelling of the foot and ankle. IMPRESSION: No acute bony findings. Soft tissue swelling. If clinical symptoms persist recommend followup film in 7-10 days. Dictated and Authenticated by: Neena Martinez MD. Ordering:MARIA ESTHER Ambriz MD
== END 2024-06-21 16:48 ==
LOC: DI 16:28
PROVIDERS: PCP Family Medicine; Visit Provider Physician Assistant Medical
DX: M79.605 Pain in left leg (principal)
CPT/HCPCS: 73630; 93971

== ENCOUNTER 2024-07-05 19:09 | Observation (INO) | payer MEDICARE, SELFPAY ==
[2024-07-05] VITALS (36 sets, daily range): BP systolic 139–168; BP diastolic 58–78; PULSE 70–101; RESP 12–28; TEMP 36–36.7; O2SAT 94–100
--- NOTE | 2024-07-05 19:00 | RT.EKG_ITS ---
APPROVED REPORT Exam: Resting ECG Reason for Exam: Hypertension, Dizziness Patient Location: E HR:82 bpm ECG Measurements Heart Rate 82 AXIS FL 201 P 58 QRSd 99 QRS -33 QT 376 T 65 QTc 441 Conclusion Sinus rhythm at a rate of 82 with normal intervals without acute ischemic change.
--- NOTE | 2024-07-05 19:15 | DI.CT_ITS ---
Exam(s) CT HEAD CERVICAL SPINE WO EXAM: CT HEAD CERVICAL SPINE WO CLINICAL HISTORY: fall, pain. TECHNIQUE: Imaging Protocol: Axial computed tomography images with coronal and sagittal reformatted images were created and reviewed COMPARISON: No exams were available for comparison FINDINGS: Head CT Ventricles and Extra axial spaces: Normal in size and morphology for the patient's age. Hemorrhage: None. Cerebral parenchyma: No evidence of mass or acute infarct. Mild atrophy. Midline shift: None. Brainstem/Cerebellum: Normal. Calvarium: Normal. Visualized Paranasal sinuses/Mastoids: Mucous retention cyst in the right frontal sinus. Minimal eth moid sinus Seco cell thickening. Soft tissues: Unremarkable. Cervical Spine CT BONES: Vertebral body heights are maintained. Alignment is normal. There is no evidence of acute frac ture. 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 Advanced degenerative disc changes and facet degenerative changes are seen. There prominent osteophy mandy projecting anteriorly, consistent with DISH. SOFT TISSUES: No paraspinal hematoma. The airway appears intact. Chronic calcification in the the li gamentum nuchae. No pneumothorax is seen at the lung apices. IMPRESSION: Head CT: No acute abnormality. C-spine CT: Advanced degenerative changes, no acute abnormality. RADIATION DOSE DELIVERED: Total DLP DATA REPOSITORY: All CT scans at this facility are submitted to the National Radiology Data Registry (NRDR) Dose Index Registry (DIR) with the [employer] (ACR). RADIATION OPTIMIZATION: All CT scans at this facility use at least one of these dose optimization te chniques: automated exposure control; mA and/or kV adjustment per patient size (includes targeted exa ms where dose is matched to clinical indication); or iterative reconstruction.
--- NOTE | 2024-07-05 19:28 | ED.GENADUL_ITS ---
Discharge Plan Disposition Patient Disposition: Admit to [facility] Condition: Stable Discharge Details Chief Complaint: Dizzy/Sync Clinical Impression: Symptomatic anemia, Fall Primary Care Provider: Guillaume Kline ED Provider: Lizzie Harkins Home Meds and New Rx's Prescriptions: No Action ibuprofen 600 mg tablet 600 mg PO Q8H PRN duloxetine [Cymbalta] 60 mg capsule,delayed release(DR/EC) 60 mg PO DAILY Qty: 90 3RF benztropine 0.5 mg tablet 0.5 mg PO BID Qty: 180 3RF aripiprazole [Abilify] 30 mg tablet 30 mg PO DAILY Qty: 90 3RF quetiapine 200 mg tablet extended release 24 hr 200 mg PO QHS Qty: 90 3RF atorvastatin 10 mg tablet 10 mg PO QPM Qty: 90 3RF clonazepam 0.5 mg tablet 0.5 mg PO BID Qty: 60 2RF metformin 1,000 mg tablet 1,000 mg PO BID Qty: 180 3RF HPI General Date/Time Provider Initiated Documentation: 07/05/24 19:10 . HPI Narrative: The patient is a 73-year-old male with a history of diabetes who comes to the emergency department after a fall. Reports that early this morning he was feeli ng lightheaded which caused him to fall. Reports that he fell on tiled floor and was unable to get up. Thinks that he may have bumped his head but it was not severe. Denies any loss of consciousness with this. Reports that he was being on the floor and thinks that there was a green party downstairs and so people could not hear him but eventually after being on the floor with his elbow somebody must of hurt him and they came and called 911 on his behalf. Patient is unsure if he is on any blood thinning medication. Reports he was fine last night and had normal dinner but has not got a chance to eat breakfast just yet. Reports she has had history of falls but never to this extent where he is stuck on the floor for hours. Reports because he had been on the floor for hours his back is now hurting. Reports he has a history of chronic back pain. Reports his back was not hurting before. Reports it seems to be feeling better by the minute since arriving in the emergency department. Denies any headache with this but reports that his neck hurts at the middle and on the left side also. Reports his right elbow feels a little sore but not too bad. Denies any chest pain or shortness of breath with this. Denies abdominal pain, nausea or vomiting. Denies urinary symptoms but states he has not urinated yet since he had been on the floor today. Denies any leg pain. Related Data Home Medications ?Medication ?Instructions ?Recorded ?Confirmed ibuprofen 600 mg tablet 600 mg PO Q8H PRN 10/17/18 07/05/24 duloxetine 60 mg capsule,delayed 60 mg PO DAILY #90 caps 07/18/23 07/05/24 release (Cymbalta) benztropine 0.5 mg tablet 0.5 mg PO BID #180 tabs 10/09/23 07/05/24 aripiprazole 30 mg tablet (Abilify) 30 mg PO DAILY #90 tabs 10/18/23 07/05/24 quetiapine 200 mg tablet,extended 200 mg PO QHS #90 tabs 11/06/23 07/05/24 release 24 hr atorvastatin 10 mg tablet 10 mg PO QPM #90 tabs 03/25/24 07/05/24 clonazepam 0.5 mg tablet 0.5 mg PO BID #60 tabs 05/21/24 07/05/24 metformin 1,000 mg tablet 1,000 mg PO BID #180 tab-caps 06/25/24 07/05/24 Previous Rx's ?Medication ?Instructions ?Recorded duloxetine 60 mg capsule,delayed 60 mg PO DAILY #90 caps 07/18/23 release (Cymbalta) benztropine 0.5 mg tablet 0.5 mg PO BID #180 tabs 10/09/23 aripiprazole 30 mg tablet (Abilify) 30 mg PO DAILY #90 tabs 10/18/23 quetiapine 200 mg tablet,extended 200 mg PO QHS #90 tabs 11/06/23 release 24 hr atorvastatin 10 mg tablet 10 mg PO QPM #90 tabs 03/25/24 clonazepam 0.5 mg tablet 0.5 mg PO BID #60 tabs 05/21/24 metformin 1,000 mg tablet 1,000 mg PO BID #180 tab-caps 06/25/24 Allergies Allergy/AdvReac Type Severity Reaction Status Date / Time No Known Allergies Allergy Unverified 07/05/24 19:44 General Stated Complaint: Dizzy/Sync SOLO: 3 Review of Systems Constitutional Constitutional: Denies chills, Denies fever(s) and Denies headache(s) ENT Ears, Nose, Mouth, and Throat: Denies headache(s) Cardiovascular Cardiovascular: Denies chest pain and Denies dyspnea Respiratory Respiratory: Denies cough and Denies dyspnea Gastrointestinal Gastrointestinal: Denies abdominal pain, Denies change in stool character and Denies vomiting Musculoskeletal Comments: Admits that his right elbow is a little sore. Reports that his back is increasingly more painful the longer he laid on the floor. Neurologic Neurologic: Denies headache(s) Exam Const General: no acute distress Orientation: alert, awake and oriented x3 HENMT Other: Dry oral mucosal membranes Neck Other: The patient has midline cervical spine tenderness to palpation without step-offs and has tenderness palpation along the lateral paraspinal area also. Chest Other: No chest wall tenderness is noted to palpation throughout. Resp Auscultation: clear to auscultation bilaterally Cardio Rate: regular rate Rhythm: regular rhythm Other: Patient has equal radial pulses. GI Palpation: soft and nontender Auscultation: normal bowel sounds Skin Other: No scalp lacerations or hematoma noted. Neuro Other: Speech is clear. Has no facial asymmetry. Patient has equal strength and sens ation to bilateral upper and lower extremities. Extrem Other: No tenderness is noted to palpation and range of motion testing to bilateral upper and lower extremities including the right shoulder, elbow, wrist on the right side in particular. The patient has midline lumbar spine tenderness to palpation which he reports is baseline for him and improving. No midline thoracic spine tenderness is noted to palpation. Course Vital Signs Vital signs: Vital Signs Temperature 36.6 C 07/05/24 19:11 Pulse 87 07/05/24 19:11 Respiratory Rate 15 07/05/24 19:11 Blood Pressure 150/66 H 07/05/24 19:11 Pulse Oximetry 99 07/05/24 19:11 Temperature 36.6 C 07/05/24 19:11 Pulse 87 07/05/24 19:11 Respiratory Rate 15 07/05/24 19:16 Respiratory Effort Normal 07/05/24 19:16 Respiratory Depth Normal 07/05/24 19:16 Respiratory Pattern Normal 07/05/24 19:16 Blood Pressure 150/66 H 07/05/24 19:11 Blood Pressure Position Sitting 07/05/24 19:11 Pulse Oximetry 99 07/05/24 19:11 Oxygen Delivery Method Room Air 07/05/24 19:11 Oxygen Flow Rate 0 07/05/24 19:11 Medical Decision Making I told the patient of plan for blood work and imaging studies. In regards to back pain complaints reports this is improving therefore I will hold off on imaging study of his back. The patient's blood work is resulted and he is found to be anemic. I asked the patient if he has had any blood in his stool or dark stools that he said no. Admits that months ago he had a pretty bad nosebleed but denies anything more recent. Chemistries are overall nondiagnostic. CPK is within normal limits. Imaging study is benign. I told the patient of need for rectal exam and he agreed. Patient is found to have no anal fissures, no external hemorrhoids. He had light brown stool which tested negative for fecal occult blood. This was done with RASHAWN Jo in the room. As far as the patient is concerned he reports that he has never needed blood transfusion. Given that he is anemic and symptomatic with it I spoke with him regarding blood transfusion. I explained to him the risk and benefit and he agreed, signed the consent form which will be included in his chart. Given workup result I informed the patient of recommendation for hospitalization and he agrees. Imaging Data Radiologic Study: Imaging: CT Scan (CT head and C-spine) Radiologist's impression: CT head: No acute intracranial finding CT C-spine: No cervical spine fracture ECG Data Attestation: I personally reviewed and interpreted this ECG (s) as follows: (Sinus rhythm at a rate of 82 with normal intervals without acute ischemic change) Quality:SDOH Health Related Social Needs: No Data to Display PFSH All Active Problems (Updated 07/05/24 @ 20:34 by Lizzie Harkins DO) Fall (Acute) Symptomatic anemia (Acute) Weakness generalized (Acute) Diarrhea (Acute) Impacted cerumen of both ears (Acute) Pericarditis (Acute) 10/15/18; [facility] [place] Diabetes mellitus (Chronic) work on weight loss keep active A1c Rectus diastasis (Acute 12/06/16) Obesity (BMI 30-39.9) (Acute 03/28/18) Dental caries (Acute 12/06/16) Medical History (Updated 07/05/24 @ 20:34 by Lizzie Harkins DO) Pericarditis Schizophrenia Depression Anxiety Surgical History No significant past surgical history Family History Mother No problems noted. Father Neoplasm BLADDER Sister Depression Sister No problems noted. Brother Heart disease Asthma Daughter No problems noted. Social History Smoking/Tobacco Use Status: Former Tobacco Use tobacco type: cigarettes Tobacco: How many years used: 4 Second Hand Exposure: Yes Smoking risk assessment performed?: Yes Alcohol Intake: former Drug use: Never Substance use type: does not use Caregiver/Support person: No Household members: none Housing: apartment Communication Needs: Corrective Lenses Do you need help understanding health information?: Rarely Pets and animals: No Sexually active: No Do you think of yourself as: straight/heterosexual Current gender identity: male What is your relationship status?: How often do you talk on the phone with friends or family?: three or more times per week How often do you get together with friends or relatives?: three or more times per week How often do you attend mormon or anglican services?: 4 or more times per year Do you belong to any clubs or organized social groups?: no Panel score (0-1 are the most socially isolated patients): 2 What type of physical activity do you participate in: walking Duration: 15-30 minutes/day Frequency: 3-4 times per week Izzy/Lutheran: Catholic Special izzy needs: No Seatbelt use: always Drive intox or ride w/intox van driver: No Do you feel safe at home: Yes Do you feel safe in your relationship?: Yes
[2024-07-05 19:32] LABS: Abs Immature Grans 0.08 10^3/uL (0.0-0.06); Absolute Basophil Count 0.07 10^3/uL (0.0-0.2); Absolute Eosinophil Count 0.18 10^3/uL (0.0-0.7); Absolute Lymphocyte Count 2.09 10^3/uL (1.2-3.4); Absolute Monocyte Count 1.03 10^3/uL (0.1-0.8); Absolute Neutrophil Count 4.97 10^3/uL (1.2-6.7); Basophils % 0.8 %; Eosinophils % 2.1 %; HCT 23.5 % (40.0-50.0); Lymphocytes % 24.8 %; MCH 18.9 pg (27.0-33.0); MCHC 29.8 % (32.0-36.0); MCV 63 fL (80-95); MPV 8.5 fL (8.0-11.0); Monocytes % 12.2 %; Neutrophils % 59.1 %; Nucleated RBC 0.2 % (0.0-0.3); Platelet Count 258 10^3/uL (130-400); RBC 3.71 10^6/uL (4.36-5.78); RDW 21.1 % (11.8-14.1); RDW-SD 47.1 fL; WBC 8.42 10^3/uL (4.4-10.8)
[2024-07-05 19:44] LABS: ALT 18 U/L (16-63); AST 19 U/L (15-37); Albumin 3.4 g/dL (3.4-5.0); Alkaline Phosphatase 89 U/L (46-116); Anion Gap 8.3 mmol/L (3-11); BUN 17 mg/dL (7-18); Bilirubin, Total 0.46 mg/dL (0.2-1.0); CO2 29.7 mmol/L (21.0-32.0); CREATININE 1.4 mg/dL (0.70-1.30); Calcium 8.9 mg/dL (8.5-10.1); Chloride 103 mmol/L (98-107); Creatine Kinase 112 U/L (39-308); Estimated GFR 53.07 (mL/min/1.73m2); Glucose 103 mg/dL (74-106); Potassium 3.7 mmol/L (3.5-5.1); Sodium 141 mmol/L (136-145); Total Protein 8.3 g/dL (6.4-8.2)
[2024-07-05 19:46] LABS: Acanthocytes 1+; Anisocytosis 2+; Diff Comment RBC Morph Reviewed
[2024-07-05 19:47] LABS: Hypochromasia 3+; Microcytosis 2+; Poikilocytes 2+; Polychromasia Present; Schistocytes 1+; Target Cells 2+
[2024-07-05] MEDS: Acetaminophen 500 MG TAB 1000 MG PO (19:57)
--- NOTE | 2024-07-05 20:02 | DI.VRAD_ITS ---
PROCEDURE INFORMATION: Exam: CT Head Without Contrast Exam date and time: 07/05/2024 7:40 PM Age: 73 years old Clinical indication: Injury or trauma; Blunt trauma (contusions or hematomas); Injury details: Fall, pain TECHNIQUE: Imaging protocol: Computed tomography of the head without contrast. COMPARISON: No relevant prior studies available. FINDINGS: Brain: Atrophy and chronic appearing white matter changes. Physiologic calcification in the basal ganglia. Cerebral ventricles: Ex vacuo dilation of the ventricular system. Paranasal sinuses: Benign-appearing likely right frontoethmoidal retention cyst. Additional minor paranasal sinus findings without air-fluid levels. Mastoid air cells: No mastoid effusion. Orbital cavities: Bilateral exophthalmos. Bones: No acute fracture. Soft tissues: No suspicious lesions. IMPRESSION: No acute intracranial findings. PROCEDURE INFORMATION: Exam: CT Cervical Spine Without Contrast Exam date and time: 07/05/2024 7:40 PM Age: 73 years old Clinical indication: Injury or trauma; Blunt trauma (contusions or hematomas); Injury details: Fall, pain TECHNIQUE: Imaging protocol: Computed tomography of the cervical spine without contrast. COMPARISON: CT CHEST PE CTA 10/13/2018 11:24 AM FINDINGS: Bones: No acute fracture or subluxation. Chronic moderate multilevel degenerative changes. Flowing anterior enthesophytes, likely DISH. Multilevel neural foraminal greater than central canal stenosis. 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 Uncovertebral hypertrophy. Teeth: Periodontal disease. Lungs: No consolidation. Soft tissues: Coarse calcifications in the region of ligamentum nuchae, probably chronic soft tissue trauma. IMPRESSION: No cervical spine fracture. Dictated and Authenticated by: Maureen Beckford MD. Ordering:YFN Samuel MD
[2024-07-05 22:14] LABS: Bilirubin Negative (Negative); Blood Negative (Negative); Clarity Clear (Clear); Glucose Negative (Negative); Ketones Negative (Negative); Leukocyte Esterase Negative (Negative); Nitrite Negative (Negative); Specific Gravity 1.025 (1.005-1.025); Urobilinogen 0.2 mg/dL (Up to 0.2)
--- NOTE | 2024-07-05 22:20 | W.PC.ACHO ---
Registration Status: Primary Language: Preferred Language: ED Information & Data Chief Complaint Dizzy/Sync 07/05/24 19:32 Other Complaint Fall/Non TraumaCriteria 07/05/24 19:11 Triage Note PT dizzy prior to fall to 07/05/24 19:11 the floor this morning ( approx 1100). PT states he was on the floor of his home until he called 911 approx 1830 tonight. PT denies head strike, remembers entire event. PT reports back pain (likely related to time on the floor). Medical / Surgical History (Last Reviewed 12/28/23 @ 15:42 by Guillaume Kline MD) Pericarditis Schizophrenia Depression Anxiety (Last Reviewed 12/28/23 @ 15:42 by Guillaume Kline MD) No significant past surgical history Most Recent Vital Signs Temperature 36.6 C 07/05/24 19:11 Pulse 70 07/05/24 21:46 Pulse 80 07/05/24 21:50 Respiratory Rate 20 07/05/24 21:55 Respiratory Effort Normal 07/05/24 21:55 Respiratory Depth Normal 07/05/24 21:55 Respiratory Pattern Normal 07/05/24 21:55 Blood Pressure 142/65 H 07/05/24 21:46 Blood Pressure Mean 92 07/05/24 21:46 Blood Pressure Position Sitting 07/05/24 19:11 Pulse Oximetry 97 07/05/24 21:55 Oxygen Delivery Method Room Air 07/05/24 21:55 Oxygen Flow Rate 0 07/05/24 21:55 Allergies No Known Allergies Allergy (Unverified 07/05/24 19:44) IV IV Catheter Type [Left Saline Lock Antecubital] IV Catheter Gauge [Left 18 Antecubital] Diagnostics 07/05/24 07/05/24 07/05/24 Range/Units 22:07 20:15 19:21 WBC 8.42 (4.4-10.8) 10^3/uL RBC 3.71 L (4.36-5.78) 10^6/uL Hgb 7.0 L* (13.5-17.5) g/dL Hct 23.5 L (40.0-50.0) % MCV 63 L (80-95) fL MCH 18.9 L (27.0-33.0) pg MCHC 29.8 L (32.0-36.0) % RDW 21.1 H (11.8-14.1) % Plt Count 258 (130-400) 10^3/uL MPV 8.5 (8.0-11.0) fL Immature Gran % 1.0 % Neutrophils % 59.1 % Lymphocytes % 24.8 % Monocytes % 12.2 % Eosinophils % 2.1 % Basophils % 0.8 % Nucleated RBC % 0.2 (0.0-0.3) % Absolute Neutrophils 4.97 (1.2-6.7) 10^3/uL Absolute Lymphocytes 2.09 (1.2-3.4) 10^3/uL Absolute Monocytes 1.03 H (0.1-0.8) 10^3/uL Absolute Eosinophils 0.18 (0.0-0.7) 10^3/uL Absolute Basophils 0.07 (0.0-0.2) 10^3/uL RBC Morphology See Below Polychromasia Present Hypochromasia 3+ Poikilocytosis 2+ Anisocytosis 2+ Microcytosis 2+ Acanthocytes (Spur) 1+ Schistocytes 1+ Sodium 141 (136-145) mmol/L Potassium 3.7 (3.5-5.1) mmol/L Chloride 103 (98-107) mmol/L Carbon Dioxide 29.7 (21.0-32.0) mmol/L Anion Gap 8.3 (3-11) mmol/L BUN 17 (7-18) mg/dL Creatinine 1.4 H (0.70-1.30) mg/dL Est GFR (CKD-EPI 2020) 53.07 (mL/min/1.73m2) Glucose 103 (74-106) mg/dL Calcium 8.9 (8.5-10.1) mg/dL Total Bilirubin 0.46 (0.2-1.0) mg/dL AST 19 (15-37) U/L ALT 18 (16-63) U/L Alkaline Phosphatase 89 (46-116) U/L Creatine Kinase 112 (39-308) U/L Total Protein 8.3 H (6.4-8.2) g/dL Albumin 3.4 (3.4-5.0) g/dL Urine Color Yellow (Yellow) Urine Clarity Clear (Clear) Urine pH 7.0 (5-8) Ur Specific [place] 1.025 (1.005-1.025) Urine Protein Negative (Neg-Trace) mg/dL Urine Ketones Negative (Negative) mg/dL Urine Blood Negative (Negative) Urine Nitrite Negative (Negative) Urine Bilirubin Negative (Negative) Urine Urobilinogen 0.2 (Up to 0.2) mg/dL Ur Leukocyte Esterase Negative (Negative) Urine Glucose Negative (Negative) mg/dL ABO/Rh B Positive Blood Type Recheck B Positive Antibody Screen NEGATIVE Crossmatch See Detail Intake and Output - 24 Hour Total 07/05/24 19:05 thru 07/05/24 19:11 Weight 103 kg Falls Risk Assessment History of Falls No History 07/05/24 19:16 Contributing Factors Impairments 07/05/24 19:16 Ambulatory Aids Uses ambulatory device 07/05/24 19:16 Tubes/Lines None 07/05/24 19:16 Gait Evaluation W/any additional score 07/05/24 19:16 Cognition No cognitive impairment 07/05/24 19:16 Fall Total Score 38 07/05/24 19:16 Level of Risk Moderate Risk 07/05/24 19:16 v v v v v v v v v Sending and/or Receiving Nurses: Please use comment section below to note any information pertinent to the patient hand-off not included above. Information / Comments:Pt arrived on med/surg unit @ 2017 from ED post fall at home. Pain bilateral lower back and neck. Need consent for blood products. 2 units b+. Has cane and is unsteady on his feet, Report received from: Shelli COBIAN, ED @ [id number] 07/05/24
[2024-07-06] VITALS (17 sets, daily range): BP systolic 123–152; BP diastolic 60–79; PULSE 70–91; RESP 14–18; TEMP 36–36.8; O2SAT 95–100
--- NOTE | 2024-07-06 01:13 | W.PM.PROGNOT ---
Date of Service Date of service: 07/06/24 Time of Service: 01:14 Assessment and Plan Assessment and plan (1) Chest pain: Status: Acute Assessment and plan: Sudden onset of chest pain/abdominal burning. It seems GI related and that he has had nausea and vomiting throughout the day. He has been getting ibuprofen on an empty stomach. There may be a component of esophagitis/gastritis. Will DC ibuprofen. A trial of Mylanta seem to have made a slight difference. Will give a dose of IV Protonix and start Protonix 40 mg twice daily. Trend troponins. Placed on telemetry. Rule out TX although it does not seem to be cardiac in nature. (2) Hypertension: Status: Chronic Assessment and plan: Blood pressure has been elevated since admission. His home meds were not verified until this evening. His losartan is ordered for tomorrow. Blood pressure has improved with 2 sublingual nitro. He is also going to get some morphine which may lower his blood pressure. Resume outpatient meds in the a.m. Subjective Subjective Interval history since last seen: Patient reports 7 out of 10 chest pain. Nursing checked blood pressure around midnight, 198/100. Soon thereafter he sat up on the side of the bed and was complaining of sharp substernal chest pain as well as abdominal burning. He received 2 sublingual nitro with improvement in his blood pressure. His chest pain went to a 6 out of 10 and was primarily a burning sensation in his abdomen. Exam Narrative Exam Narrative: Patient is lying on the right lateral decubitus position. He is very hard of hearing. He points to his abdomen as the main source of his discomfort. He did not have labored breathing. The abdominal exam showed a markedly protuberant abdomen that was mildly tender to palpation. No HSM was detected. No guarding or rebound. Pulse is regular and at 100. Objective Last Vital Signs Temp 36.3 C L 07/06/24 00:30 Pulse 73 07/06/24 00:30 Resp 16 07/06/24 00:30 BP 144/61 H 07/06/24 00:30 Pulse Ox 99 07/06/24 00:30 Laboratory Results - last 24 hr 07/05/24 07/05/24 07/05/24 19:21 20:15 22:07 WBC 8.42 RBC 3.71 L Hgb 7.0 L* Hct 23.5 L MCV 63 L MCH 18.9 L MCHC 29.8 L RDW 21.1 H Plt Count 258 MPV 8.5 Immature Gran % 1.0 Neutrophils % 59.1 Lymphocytes % 24.8 Monocytes % 12.2 Eosinophils % 2.1 Basophils % 0.8 Nucleated RBC % 0.2 Absolute Neutrophils 4.97 Absolute Lymphocytes 2.09 Absolute Monocytes 1.03 H Absolute Eosinophils 0.18 Absolute Basophils 0.07 RBC Morphology See Below Polychromasia Present Hypochromasia 3+ Poikilocytosis 2+ Anisocytosis 2+ Microcytosis 2+ Acanthocytes (Spur) 1+ Schistocytes 1+ Sodium 141 Potassium 3.7 Chloride 103 Carbon Dioxide 29.7 Anion Gap 8.3 BUN 17 Creatinine 1.4 H Est GFR (CKD-EPI 2020) 53.07 Glucose 103 Calcium 8.9 Total Bilirubin 0.46 AST 19 ALT 18 Alkaline Phosphatase 89 Creatine Kinase 112 Total Protein 8.3 H Albumin 3.4 Urine Color Yellow Urine Clarity Clear Urine pH 7.0 Ur Specific [place] 1.025 Urine Protein Negative Urine Ketones Negative Urine Blood Negative Urine Nitrite Negative Urine Bilirubin Negative Urine Urobilinogen 0.2 Ur Leukocyte Esterase Negative Urine Glucose Negative ABO/Rh B Positive Blood Type Recheck B Positive Antibody Screen NEGATIVE Crossmatch See Detail Objective Narrative Objective Narrative: EKG showed a sinus rhythm at 100 bpm. There were no acute ST to T changes. Some evidence of right atrial enlargement. Time Spent with Patient Time Spent with Patient: 25-34 minutes Time was spent: preparing to see the patient(eg.review tests), obtaining and/or reviewing separately otained hiistory, ordering medications,tests, procedures, indepentently interpreting results and counseling the patient
--- NOTE | 2024-07-06 01:25 | HPE_ITS ---
Date of service: 07/05/24 Time of Service: 20:30 Assessment and Plan Assessment and plan (1) Fall: Status: Acute Assessment and plan: Appears to be an instant fall perhaps related to not eating or drinking enough. He was down for 6 hours but CPK is normal at 112. Creatinine is up slightly at 1.4. He is found to be anemic with a hemoglobin of 7.0 which is likely a contributing factor. He is getting 2 units of packed red cells which should help with hydration and the anemia. (2) Symptomatic anemia: Status: Acute Assessment and plan: He was guaiac negative in the ED per the ER physician. He does not have a history of anything that sounds like active bleeding. It looks like he was anemic as far back as 2 years ago. Full anemia workup, including EGD and colonoscopy could be done as an outpatient pending his response to the blood transfusion. Will add iron studies to his admission lab work. 3+ hypochromasia suggestive of iron deficiency. (3) Weakness generalized: Status: Acute Assessment and plan: His weakness is certainly explained by the anemia and recent dietary changes. Will see how he feels in the a.m. and possibly ask physical therapy to see him. (4) Diabetes mellitus: Status: Chronic Assessment and plan: Diabetes appears to be well-controlled per his last well check in December 2023. Hemoglobin A1c was 6.3%. Blood sugars well-controlled here. Will place on a diabetic diet. (5) Schizophrenia: Status: Chronic Assessment and plan: No evidence of auditory or visual hallucinations. Thought processes appear to be clear. Continue present meds. History of Present Illness History of Present Illness Chief Complaint: Syncope/anemia Narrative: 73-year-old male that lives in the [facility] had a syncopal episode at home in the morning hours of 07/05/2024. He was down for about 6 hours before he could get anybody to come to his aid. He was yelling and banging on the floor with his elbow which finally brought someone to help. They called 911 and he was brought to the emergency room. In the emergency room he was awake and alert. His vital signs were stable. His labs were notable for hemoglobin of 7.0. His hemoglobin was 8.42 years ago. He denies any history of melena recently. He is admitted for observation and will receive 2 units of packed red cells. Review of Systems Narrative: He had been generally well up until his fall. He states he has been trying to lose weight and has been skipping meals. He says he is lost 35 pounds since he started this diet. He attributes his fall and weakness from not eating. He had no antecedent chest pain or shortness of breath. [facility] All Active Problems (Updated 07/06/24 @ 01:31 by Javier Waldron MD) Schizophrenia (Chronic) Fall (Acute) Symptomatic anemia (Acute) Weakness generalized (Acute) Diabetes mellitus (Chronic) work on weight loss keep active A1c Obesity (BMI 30-39.9) (Acute 10/04/17) Medical History (Updated 07/06/24 @ 01:31 by Javier Waldron MD) Dental caries (12/06/16) Rectus diastasis (12/06/16) Pericarditis 10/15/18[place] [facility] [place] cerumen of both ears Diarrhea Pericarditis Depression Anxiety Surgical History No significant past surgical history Family History Mother No problems noted. Father Neoplasm BLADDER Sister Depression Sister No problems noted. Brother Heart disease Asthma Daughter No problems noted. Social History Smoking/Tobacco Use Status: Former Tobacco Use tobacco type: cigarettes Tobacco: How many years used: 4 Second Hand Exposure: Yes Smoking risk assessment performed?: Yes Alcohol Intake: former Drug use: Never Substance use type: does not use Caregiver/Support person: No Household members: none Housing: assisted living facility Communication Needs: Corrective Lenses Do you need help understanding health information?: Rarely Pets and animals: No Sexually active: No Do you think of yourself as: straight/heterosexual Current gender identity: male What is your relationship status?: How often do you talk on the phone with friends or family?: three or more times per week How often do you get together with friends or relatives?: three or more times per week How often do you attend scientologist or jainism services?: 4 or more times per year Do you belong to any clubs or organized social groups?: no Panel score (0-1 are the most socially isolated patients): 2 What type of physical activity do you participate in: walking Duration: 15-30 minutes/day Frequency: 3-4 times per week Izzy/Denominational: Yazidism Special izzy needs: No Seatbelt use: always Drive intox or ride w/intox haul driver: No Do you feel safe at home: Yes Do you feel safe in your relationship?: Yes Meds Allergies and Home Medications Allergies Allergy/AdvReac Type Severity Reaction Status Date / Time No Known Allergies Allergy Unverified 07/05/24 19:44 Home Medications ?Medication ?Instructions ?Recorded ?Confirmed ?Type ibuprofen 600 mg tablet 600 mg PO Q8H PRN 10/17/18 07/05/24 History duloxetine 60 mg capsule,delayed 60 mg PO DAILY #90 caps 07/18/23 07/05/24 Rx release (Cymbalta) benztropine 0.5 mg tablet 0.5 mg PO BID #180 tabs 10/09/23 07/05/24 Rx aripiprazole 30 mg tablet (Abilify) 30 mg PO DAILY #90 tabs 10/18/23 07/05/24 Rx quetiapine 200 mg tablet,extended 200 mg PO QHS #90 tabs 11/06/23 07/05/24 Rx release 24 hr atorvastatin 10 mg tablet 10 mg PO QPM #90 tabs 03/25/24 07/05/24 Rx clonazepam 0.5 mg tablet 0.5 mg PO BID #60 tabs 05/21/24 07/05/24 Rx metformin 1,000 mg tablet 1,000 mg PO BID #180 tab-caps 06/25/24 07/05/24 Rx Exam Narrative Exam Narrative: On exam he is alert and very pleasant. His speech is clear and coherent. He did not appear in any distress. His breathing was nonlabored and lung sounds were clear. His heart sounds were regular with 2/6 systolic murmur. His abdomen slightly obese but overall nontender to palpation in 4 quadrants. Lower extremities have trace edema bilaterally but otherwise good perfusion. Neurologically he is moving all extremities with purposeful movements. There does not appear to be any focal deficits. Results Imaging Additional studies: C-spine negative Labs 07/05/24 19:21 07/05/24 19:21 Labs: Laboratory Results - last 24 hr 07/05/24 07/05/2424 19:21 20:15 22:07 WBC 8.42 RBC 3.71 L Hgb 7.0 L* Hct 23.5 L MCV 63 L MCH 18.9 L MCHC 29.8 L RDW 21.1 H Plt Count 258 MPV 8.5 Immature Gran % 1.0 Neutrophils % 59.1 Lymphocytes % 24.8 Monocytes % 12.2 Eosinophils % 2.1 Basophils % 0.8 Nucleated RBC % 0.2 Absolute Neutrophils 4.97 Absolute Lymphocytes 2.09 Absolute Monocytes 1.03 H Absolute Eosinophils 0.18 Absolute Basophils 0.07 RBC Morphology See Below Polychromasia Present Hypochromasia 3+ Poikilocytosis 2+ Anisocytosis 2+ Microcytosis 2+ Acanthocytes (Spur) 1+ Schistocytes 1+ Sodium 141 Potassium 3.7 Chloride 103 Carbon Dioxide 29.7 Anion Gap 8.3 BUN 17 Creatinine 1.4 H Est GFR (CKD-EPI 2020) 53.07 Glucose 103 Calcium 8.9 Total Bilirubin 0.46 AST 19 ALT 18 Alkaline Phosphatase 89 Creatine Kinase 112 Total Protein 8.3 H Albumin 3.4 Urine Color Yellow Urine Clarity Clear Urine pH 7.0 Ur Specific [place] 1.025 Urine Protein Negative Urine Ketones Negative Urine Blood Negative Urine Nitrite Negative Urine Bilirubin Negative Urine Urobilinogen 0.2 Ur Leukocyte Esterase Negative Urine Glucose Negative ABO/Rh B Positive Blood Type Recheck B Positive Antibody Screen NEGATIVE Crossmatch See Detail Last Vital Signs Temp 36.3 C L 07/06/24 00:30 Pulse 73 07/06/24 00:30 Resp 16 07/06/24 00:30 BP 144/61 H 07/06/24 00:30 Pulse Ox 99 07/06/24 00:30 Time Spent Time spent with Patient: 40-54 minutes Time was spent: preparing to see the patient(eg.review tests), obtaining and/or reviewing separately otained hiistory, ordering medications,tests, procedures, referring, communicating with other health senior resident care director, indepentently interpreting results and counseling the patient
[2024-07-06 03:03] LABS: Lab Add On Test DONE
[2024-07-06 04:16] LABS: Iron 14 ug/dL (65-175); Total Iron Binding Capacity 353 ug/dL (250-450); Transferrin Sat 4 % (20-55)
[2024-07-06 04:34] LABS: Ferritin 8 ng/mL (26-388)
[2024-07-06 07:02] LABS: Abs Immature Grans 0.02 10^3/uL (0.0-0.06); Absolute Basophil Count 0.06 10^3/uL (0.0-0.2); Absolute Eosinophil Count 0.36 10^3/uL (0.0-0.7); Absolute Lymphocyte Count 1.54 10^3/uL (1.2-3.4); Absolute Monocyte Count 0.89 10^3/uL (0.1-0.8); Basophils % 0.8 %; HCT 31.3 % (40.0-50.0); HGB 9.3 g/dL (13.5-17.5); Immature Grans % 0.3 %; Lymphocytes % 21.2 %; MCH 20.4 pg (27.0-33.0); MCHC 29.7 % (32.0-36.0); MCV 69 fL (80-95); Monocytes % 12.2 %; Neutrophils % 60.5 %; Platelet Count 246 10^3/uL (130-400); RBC 4.56 10^6/uL (4.36-5.78); RDW 23.7 % (11.8-14.1); RDW-SD 57.3 fL; WBC 7.27 10^3/uL (4.4-10.8)
[2024-07-06 07:23] LABS: Anion Gap 7.5 mmol/L (3-11); BUN 18 mg/dL (7-18); CO2 28.5 mmol/L (21.0-32.0); CREATININE 1.4 mg/dL (0.70-1.30); Calcium 8.8 mg/dL (8.5-10.1); Chloride 105 mmol/L (98-107); Creatine Kinase 136 U/L (39-308); Estimated GFR 53.07 (mL/min/1.73m2); Glucose 118 mg/dL (74-106); Potassium 4.1 mmol/L (3.5-5.1); Sodium 141 mmol/L (136-145)
[2024-07-06 07:36] LABS: Anisocytosis 2+; Diff Comment RBC Morph Reviewed; Microcytosis 2+; Polychromasia Present
[2024-07-06 07:37] LABS: Poikilocytes 1+
[2024-07-06] MEDS: DULoxetine 30 MG CAP 60 MG PO (08:06)
[2024-07-06] MEDS: ARIPiprazole 15 MG TAB 30 MG PO (08:06)
[2024-07-06] MEDS: clonazePAM 0.5 MG TAB PO ×2 (08:06→19:59)
[2024-07-06] MEDS: Polyethylene Glycol 3350 17 GM PACKET PO (08:06)
[2024-07-06] MEDS: Docusate Sodium 100 MG CAP PO (08:06)
[2024-07-06] MEDS: metFORMIN 500 MG TAB 1000 MG PO ×2 (08:06→16:35)
[2024-07-06] MEDS: Benztropine 1 MG TAB 0.5 MG PO ×2 (08:06→19:58)
--- NOTE | 2024-07-06 09:18 | INITIAL_ITS ---
Date of service: 07/06/24 Time of Service: 09:18 Care Management Initial Assmt Initial Assessment Reason for Hospitalization: Anemia Functional Status/Living Situation Patient Presentation: Andrés was sitting up in a chair when CM met with him. He was pleasant in manner and agreeable to conversation. Andrés was admitted yesterday after a fall and spending 7 hours on the floor. He did not sustain any fractures or serious injuries but was found to be anemic and was transfused with 2 units of blood. His Hgb increased from 7.0 to 9.3 after the transfusions. Andrés was seen by PT who has recommended home health PT. Andrés lives alone in an apartment at the [facility]. He has some help with housekeeping and also with groceries from time to time. Andrés has one daughter who lives in [place]. He shared that they write to each other periodically but rarely visit or talk on the phone. His daughter is a psychologist who has her own counseling practice. Eh uses a cane for ambulation however he was told by PT today that he shopuld be using a walker at this time. Town of Residence: [facility] Resides with: Alone Significant Other/Family: Out of area ([place]) Employment Status: Retired (worked for [employer] in both [facility] and [facility] at different times) Instrumental Activities of Daily Living (ADLs): Independent Medications Medication Management: No Issues/Barriers identified Physical Functioning/Mobility Assistive Device: cane and walker Advance Directives Advance Directives: Do you have an Advance Directive: N 12/10/13 11:42 AD On File at [facility]: N 10/13/12 05:41 Date Asked 07/05/24 07/05/24 19:20 AD Date Reviewed COLST On File at [facility] COLST Date Scanned Code Status Resuscitation Status Full Code Portal Pt does not currently have a portal and education provided: Yes Insurance Coverage/Financial Issues Insurance: Medicare Care Team Visit Care Team Role Provider Type Guillaume Kline MD Primary Care Provider [facility] STAFF PHYSICIAN Lizzie Harkins DO Emergency Provider [facility] STAFF PHYSICIAN Javier Waldron MD Admit Provider [facility] STAFF PHYSICIAN Attending Provider Discharge Potential Discharge Needs: PCP F/U Appt Anticipated Barriers to Discharge: None Identified Patient/Family Education Needs: Review discharge instructions, discuss Ask Me Three Transportation: Private vehicle Plan: Anticipate Andrés will be discharged home with new home health services for PT when medically cleared. He will follow up with his PCP and plan of care and transport via private vehicle. CM will follow and continue to assess for discharge needs. [facility] All Active Problems (Updated 07/06/24 @ 01:31 by Javier Waldron MD) Schizophrenia (Chronic) Fall (Acute) Symptomatic anemia (Acute) Weakness generalized (Acute) Diabetes mellitus (Chronic) work on weight loss keep active A1c Obesity (BMI 30-39.9) (Acute 10/04/17) Medical History (Updated 07/06/24 @ 01:31 by Javier Waldron MD) Dental caries (12/06/16) Rectus diastasis (12/06/16) Pericarditis 10/15/18; [facility] [place] Impacted cerumen of both ears Diarrhea Pericarditis Depression Anxiety Surgical History No significant past surgical history Family History Mother No problems noted. Father Neoplasm BLADDER Sister Depression Sister No problems noted. Brother Heart disease Asthma Daughter No problems noted. Social History Smoking/Tobacco Use Status: Former Tobacco Use tobacco type: cigarettes Tobacco: How many years used: 4 Second Hand Exposure: Yes Smoking risk assessment performed?: Yes Alcohol Intake: former Drug use: Never Substance use type: does not use Caregiver/Support person: No Household members: none Housing: assisted living facility Communication Needs: Corrective Lenses Do you need help understanding health information?: Rarely Pets and animals: No Sexually active: No Do you think of yourself as: straight/heterosexual Current gender identity: male What is your relationship status?: How often do you talk on the phone with friends or family?: three or more times per week How often do you get together with friends or relatives?: three or more times per week How often do you attend buddhist or yazdanism services?: 4 or more times per year Do you belong to any clubs or organized social groups?: no Panel score (0-1 are the most socially isolated patients): 2 What type of physical activity do you participate in: walking Duration: 15-30 minutes/day Frequency: 3-4 times per week Izzy/Baptist: Faith Special izzy needs: No Seatbelt use: always Drive intox or ride w/intox tractor driver teamster: No Do you feel safe at home: Yes Do you feel safe in your relationship?: Yes SDOH(Care Management) Screening Will the Patient Participate in the Screening?: Yes Do you worry about having a steady place to live?: no Problems where you live: pests such as bugs, ants or mice In the past 12 months, have you had to go without electric, gas, oil or water in your home?: no Have you or anyone in your house had to go without enough food to eat?: no Has lack of transportation kept you from medical appointments or from doing things needed for daily living?: no Has anyone in your support network made you feel unsafe for any reason?: no Social Determinants of Health Comments(SDOH Details): Pt unsure about needing home help att. Health Related Social Needs Health related social needs: inadequate housing(Z59.1)
--- NOTE | 2024-07-06 09:47 | W.PM.PROGNOT ---
Date of Service Date of service: 07/06/24 Time of Service: 09:48 Assessment and Plan Assessment and plan (1) Fall: Status: Acute Assessment and plan: History of falls but syncope most likely d/t anemia and decreased dietary intake; did not loose consciousness. No rhabdomyolysis CPK was at 112. PT consult Fall precaution Creatinine 1.4- last Cr 1.3 He is found to be anemic with a hemoglobin of 7.0 which is likely a contributing factor. He is getting 2 units of packed red cells which should help with hydration and the anemia. (2) Symptomatic anemia: Status: Acute Assessment and plan: H&H 9.3 and 31.3 status post 2 units of PRBC; on arrival was 7 and 23.5 Guaiac negative in the ED as per notes Anemia is most likely chronic and the patient will need for anemia workup including EGD and colonoscopy. This could be done outpatient as per PCP referral. Iron study result shows iron deficiency anemia; supplementation ordered (3) Weakness generalized: Status: Acute Assessment and plan: Patient remained dizzy and slightly weak. Physical therapy consult for safe discharge completed Patient requesting 1 more night stay to get stronger (4) Diabetes mellitus: Status: Chronic Assessment and plan: Last Hemoglobin A1c 6.3. Blood sugar this morning 118. Continue diabetic diet (5) Schizophrenia: Status: Chronic Assessment and plan: No exacerbation of the condition noticed. Continue home med regimen. (6) Discharge planning issues: Status: Acute Assessment and plan: Most likely to be discharge back in the community in a.m. with home health physical therapy Discussed with Dr. Day Subjective Subjective Patient reports: feels better (still weak and dizzy), tolerating liquids well, flatus, bowel movement and afebrile; denies diarrhea, blood in stool, nausea, vomiting or shortness of breath Exam Narrative Exam Narrative: Constitutional The patient is sitting in chair without acute distress and has average body habitus/is obese/ is thin. HENMT: Facial structures with normal appearance Eyes: Well aligned, intact ROM Neck: Normal ROM, no meningeal signs Neuro:alert and oriented to self, person, place, time and situation. No neurological focal deficit Resp: Unlabored breathing, clear lung bilaterally Cardio: SR HR 97 on tele, S1, S2, no murmur, capillary refill<3 sec., bilateral radial and dorsalis pedis pulses are positive GI: Abdomen is not distended, soft and non tender, bowel sounds are present : Negative Costovertebral angle tenderness, no bladder distension Back/spine/Pelvis: No back tenderness, normal alignment Integumentary: No skin lesions or rash Extremities: strength 5/5 to bilateral lower and upper extremities Psych: RASS 0, congruent mood and normal affect. Objective Last Vital Signs Temp 36.7 C 07/06/24 06:09 Pulse 73 07/06/24 06:09 Resp 18 07/06/24 06:09 BP 129/71 07/06/24 06:09 Pulse Ox 96 07/06/24 06:09 Laboratory Results - last 24 hr 07/05/24 07/05/24 07/05/24 19:21 20:15 22:07 WBC 8.42 RBC 3.71 L Hgb 7.0 L* Hct 23.5 L MCV 63 L MCH 18.9 L MCHC 29.8 L RDW 21.1 H Plt Count 258 MPV 8.5 Immature Gran % 1.0 Neutrophils % 59.1 Lymphocytes % 24.8 Monocytes % 12.2 Eosinophils % 2.1 Basophils % 0.8 Nucleated RBC % 0.2 Absolute Neutrophils 4.97 Absolute Lymphocytes 2.09 Absolute Monocytes 1.03 H Absolute Eosinophils 0.18 Absolute Basophils 0.07 RBC Morphology See Below Polychromasia Present Hypochromasia 3+ Poikilocytosis 2+ Anisocytosis 2+ Microcytosis 2+ Acanthocytes (Spur) 1+ Schistocytes 1+ Sodium 141 Potassium 3.7 Chloride 103 Carbon Dioxide 29.7 Anion Gap 8.3 BUN 17 Creatinine 1.4 H Est GFR (CKD-EPI 2020) 53.07 Glucose 103 Calcium 8.9 Iron 14 L TIBC 353 Transferrin % Sat 4 L Ferritin 8 L Total Bilirubin 0.46 AST 19 ALT 18 Alkaline Phosphatase 89 Creatine Kinase 112 Total Protein 8.3 H Albumin 3.4 Urine Color Yellow Urine Clarity Clear Urine pH 7.0 Ur Specific [place] 1.025 Urine Protein Negative Urine Ketones Negative Urine Blood Negative Urine Nitrite Negative Urine Bilirubin Negative Urine Urobilinogen 0.2 Ur Leukocyte Esterase Negative Urine Glucose Negative Add-On Test Request ABO/Rh B Positive Blood Type Recheck B Positive Antibody Screen NEGATIVE Crossmatch See Detail 07/06/24 07/06/24 05:50 19:21 WBC 7.27 RBC 4.56 Hgb 9.3 L D Hct 31.3 L MCV 69 L D MCH 20.4 L MCHC 29.7 L RDW 23.7 H Plt Count 246 MPV 9.0 Immature Gran % 0.3 Neutrophils % 60.5 Lymphocytes % 21.2 Monocytes % 12.2 Eosinophils % 5.0 Basophils % 0.8 Nucleated RBC % 0.0 Absolute Neutrophils 4.40 Absolute Lymphocytes 1.54 Absolute Monocytes 0.89 H Absolute Eosinophils 0.36 Absolute Basophils 0.06 RBC Morphology See Below Polychromasia Present Hypochromasia Poikilocytosis 1+ Anisocytosis 2+ Microcytosis 2+ Acanthocytes (Spur) Schistocytes Sodium 141 Potassium 4.1 Chloride 105 Carbon Dioxide 28.5 Anion Gap 7.5 BUN 18 Creatinine 1.4 H Est GFR (CKD-EPI 2020) 53.07 Glucose 118 H Calcium 8.8 Iron TIBC Transferrin % Sat Ferritin Total Bilirubin AST ALT Alkaline Phosphatase Creatine Kinase 136 Total Protein Albumin Urine Color Urine Clarity Urine pH Ur Specific [place] Urine Protein Urine Ketones Urine Blood Urine Nitrite Urine Bilirubin Urine Urobilinogen Ur Leukocyte Esterase Urine Glucose Add-On Test Request DONE ABO/Rh Blood Type Recheck Antibody Screen Crossmatch Time Spent with Patient Time Spent with Patient: >50 minutes Time was spent: preparing to see the patient(eg.review tests), obtaining and/or reviewing separately otained hiistory, ordering medications,tests, procedures, referring, communicating with other health health care attorney, indepentently interpreting results, counseling the patient and care coordination
[2024-07-06] MEDS: Ferrous Sulfate 325 MG TAB PO (10:17)
[2024-07-06 11:39] LABS: HCT 30.4 % (40.0-50.0); HGB 9.2 g/dL (13.5-17.5); MCHC 30.3 % (32.0-36.0); MCV 69 fL (80-95); MPV 8.5 fL (8.0-11.0); Platelet Count 230 10^3/uL (130-400); RBC 4.39 10^6/uL (4.36-5.78); RDW-SD 56.4 fL; WBC 7.06 10^3/uL (4.4-10.8)
--- NOTE | 2024-07-06 12:53 | IN_ITS ---
PT Notes Visit Reasons: Syncope/ Anemia Inpatient Physical Therapy Evaluation Date: July 06, 2024 Referring Doctor: Selena Mcdonough NP PT Orders: PT CONSULT: Safety consult for DC Precautions: Activity to tolerance, standard precautions Patient Profile/Admitting Diagnosis: e patient is a 73-year-old male with a history of diabetes who presented to the emergency department after a fall 07/05/24. Reported that early yesterday morning he was feeling lightheaded which caused him to fall. Reports that he fell on tiled floor and was unable to get up. Thinks that he may have bumped his head but it was not severe. Denies any loss of consciousness with this. Reports that he was being on the floor and thinks that there was a constitution party downstairs and so people could not hear him but eventually after being on the floor with his elbow somebody must of heard him and they came and called 911 on his behalf. Reports she has had history of falls but never to this extent where he is stuck on the floor for hours. Reports because he had been on the floor for hours his back is now hurting. Reports he has a history of chronic back pain. Reports his back was not hurting before. Reports his right elbow feels a little sore but not too bad. PMHX: All Active Problems (Updated 07/05/24 @ 20:34 by Lizzie Harkins DO) Fall (Acute) Symptomatic anemia (Acute) Weakness generalized (Acute) Diarrhea (Acute) Impacted cerumen of both ears (Acute) [facility]icard[facility] (Acute) [facility] ([facility]) work on weight loss keep active [id number] diastasis (Acute 12/06/16) Obesity (BMI 30-39.9) (Acute 10/04/17) Dental caries (Acute 12/06/16) Medical History (Updated 07/05/24 @ 20:34 by Lizzie Harkins DO) Pericarditis Schizophrenia Depression Anxiety Surgical History No significant past surgical history Home Medications ?Medication ?Instructions ?Recorded ?Confirmed ibuprofen 600 mg tablet 600 mg PO Q8H PRN 10/17/18 07/05/24 duloxetine 60 mg capsule,delayed 60 mg PO DAILY #90 caps 07/18/23 07/05/24 release (Cymbalta) benztropine 0.5 mg tablet 0.5 mg PO BID #180 tabs 10/09/23 07/05/24 aripiprazole 30 mg tablet (Abilify) 30 mg PO DAILY #90 tabs 10/18/23 07/05/24 quetiapine 200 mg tablet,extended 200 mg PO QHS #90 tabs 11/06/23 07/05/24 release 24 hr atorvastatin 10 mg tablet 10 mg PO QPM #90 tabs 03/25/24 07/05/24 clonazepam 0.5 mg tablet 0.5 mg PO BID #60 tabs 05/21/24 07/05/24 metformin 1,000 mg tablet 1,000 mg PO BID #180 tab-caps 06/25/24 07/05/24 Social History/Home Situation: Lives alone second-floor [facility]. Elevator in facility. Current Functional Limitations: Community distance ambulation Equipment Owned/DME: Standard cane Subjective: Patient states that his back is a little sore from the fall. Also having some mild soreness in his right shoulder. Objective: General Observation: Sitting up in bedside chair with alarm activated. Telemetry Mental Status: Alert and orientated x 3 Pain: 4/10 low back, 3/10 right shoulder ROM: Right Upper Extremity: Glenohumeral joint flexion 120 degrees with mild pain at end range. Reports if he moves his arm slowly he has less pain. Abduction 90 degrees, elbow flexion and extension within normal limits. Left Upper Extremity: Glenohumeral joint flexion 140 degrees. Abduction 110 degrees, elbow flexion and extension within normal limits Right Lower Extremity: Hip flexion 105 degrees, abduction 30 degrees, knee flexion and extension within normal limits pain-free ankle range of motion within normal limits, Left Lower Extremity: Hip flexion 105, abduction 30, knee flexion extension within normal limits. Ankle range of motion within normal limits Strength: Right Upper Extremity: Glenohumeral joint flexion, abduction, elbow flexion and extension 4/5. 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 Bed Mobility/Transfers: At start of initial evaluation patient sitting comfortably in chair. Sit?stand: To front wheeled walker with standby assist Stand?sit: From to front wheeled walker with standby assist length Gait: Patient ambulated 100 feet with front wheel walker and contact-guard x 1. Verbal cues required for transition for turning. Attempted use of standard cane but patient unsafe with ambulation with assistive device. Transitioned from walker to sitting with standby assist. Chair alarm reactivated. Balance: Static Sitting: Normal Dynamic Sitting: Normal Static Standing: Good Dynamic Standing: Fair Special Tests: Mobility Limitations Standardized Measure [facility] AM-PAC 6 clicks Basic Mobility Inpatient Short Form: Raw Score: 22 CMS Score: 20.9 Informed Consent/Education: Patient instructed in purpose of PT consult and plan of care. Assessment: Patient is a 73 year old male referred to physical therapy services with the diagnosis of syncope. Based on today's evaluation patient not safe to ambulate with standard cane and requires use of front wheeled walker. He will require this upon discharge for safety purposes. Patient presents with clinical signs and symptoms consistent with above diagnosis. He presents with clinical signs and symptoms consistent with current/admitting diagnoses that have resulted to mobility limitations, gait instability, generalized weakness, and impairment of motor control as demonstrated by the following impairment level findings: 1. Impaired lower extremity major muscle group strength 2. Impaired dynamic balance 3. Impaired functional activity tolerance Impairments are contributing to the following functional limitations: 1. Inability to safely ambulate without assistive device 2. Increased fall risk Patient is assessed as a LOW complexity based on the following: History: 67-year-old female with impairment level findings, functional limitations, and past medical history as indicated above Examination: Demonstrable impairment in strength, balance, and mobility level with underlying impairments and functional limitations as documented above Presentation: evolving Decision Making: as per [facility] Goals: 1. Independent with transfers with FWW 2. Supervised ambulation with FWW >150 feet level surfaces with turns. Plan of Care/Treatment Plan: PT evaluation and 1-2 treatments for functional mobility, gait and therapeutic exercise / HEP DISCHARGE RECOMMENDATIONS:Home with HHPT when medically appropriate TREATMENT CODE/TIME: 26280/ 11:30-12:00 Thank you for the opportunity to participate in the care of this patient. Javier Back PT, DPT Disclaimer: This note was created using [employer] voice recognition software. It was reviewed for major content. However, there may be multiple small discrepancies and errors due to the voice recognition aspects of the software.
[2024-07-06] MEDS: Atorvastatin 10 MG TAB PO (19:59)
[2024-07-07 00:05] VITALS: BP 128/88; PULSE 68; RESP 18; TEMP 36.3; O2SAT 96
[2024-07-07 04:02] VITALS: BP 144/79; RESP 17; TEMP 37; O2SAT 97
[2024-07-07 06:31] LABS: Abs Immature Grans 0.01 10^3/uL (0.0-0.06); Absolute Basophil Count 0.05 10^3/uL (0.0-0.2); Absolute Eosinophil Count 0.57 10^3/uL (0.0-0.7); Absolute Lymphocyte Count 2.29 10^3/uL (1.2-3.4); Absolute Monocyte Count 0.86 10^3/uL (0.1-0.8); Absolute Neutrophil Count 3.36 10^3/uL (1.2-6.7); Basophils % 0.7 %; HCT 30.2 % (40.0-50.0); Immature Grans % 0.1 %; Lymphocytes % 32.1 %; MCH 20.5 pg (27.0-33.0); MCHC 29.8 % (32.0-36.0); MCV 69 fL (80-95); MPV 8.7 fL (8.0-11.0); Neutrophils % 47.1 %; Platelet Count 236 10^3/uL (130-400); RBC 4.38 10^6/uL (4.36-5.78); RDW 23.6 % (11.8-14.1); RDW-SD 57.6 fL; WBC 7.14 10^3/uL (4.4-10.8)
[2024-07-07 06:41] LABS: Anion Gap 5.2 mmol/L (3-11); BUN 21 mg/dL (7-18); CO2 29.8 mmol/L (21.0-32.0); CREATININE 1.3 mg/dL (0.70-1.30); Calcium 8.8 mg/dL (8.5-10.1); Chloride 105 mmol/L (98-107); Estimated GFR 58.01 (mL/min/1.73m2); Glucose 94 mg/dL (74-106); Sodium 140 mmol/L (136-145)
[2024-07-07 07:31] VITALS: BP 156/82; PULSE 85; RESP 18; TEMP 36.6; O2SAT 96
[2024-07-07] MEDS: DULoxetine 30 MG CAP 60 MG PO (08:28)
[2024-07-07] MEDS: Benztropine 1 MG TAB 0.5 MG PO (08:28)
[2024-07-07] MEDS: Ferrous Sulfate 325 MG TAB PO (08:29)
[2024-07-07] MEDS: clonazePAM 0.5 MG TAB PO (08:29)
[2024-07-07] MEDS: metFORMIN 500 MG TAB 1000 MG PO (08:29)
[2024-07-07] MEDS: ARIPiprazole 15 MG TAB 30 MG PO (08:29)
[2024-07-07] MEDS: Milk of Magnesia 30 ML CUP PO (09:13)
[2024-07-07 09:32] VITALS: BP 133/66; PULSE 77; RESP 18; TEMP 36.5; O2SAT 96
--- NOTE | 2024-07-07 09:45 | DSE_ITS ---
Date of service: 07/07/24 Time of Service: 09:45 DS: Diagnosis Discharge Diagnosis (1) Fall: Status: Acute (2) Symptomatic anemia: Status: Acute (3) Weakness generalized: Status: Acute (4) Diabetes mellitus: Status: Chronic (5) Schizophrenia: Status: Chronic (6) Discharge planning issues: Status: Acute Discharge Plan Disposition Patient Disposition: Home W/Home Health Services Condition: Improving Discharge Details Reason For Visit: Syncope/ Anemia Admit Date/Time: 07/05/24 20:45 Admit Provider: Javier Waldron Attending Provider: Javier Waldron Primary Care Provider: Guillaume Kline Hospital Course Hospital Course: This 70-year-old male patient with a past medical history of fall, chronic back pain, diabetes type 2, presented to the ED at [facility] via EMS status post feeling dizzy, lightheaded and falling on the tile floor. Patient mentioned falling on his right, shoulder and back with minimal bump to his head; had no loss of consciousness but was unable to get up for 7 hours. The patient reported back pain, sore right elbow, left-sided and middle neck pain. Workup in the ED was significant for severe anemia with an H&H of 7.0 and 23.5, creatinine at 1.4 close to baseline, CPK was 112. EKG showed sinus rhythm with a NH of 201 ms without signs of ischemia or acute injury; heart rate 82. Head cervical spine CT was negative for any acute abnormalities except for advanced right degenerative changes in the C-spine CT. Physical occult blood test was negative. Necessity for blood transfusion was explained by ED provider as well as risk and benefit. The patient agreed to blood transfusion. The hospitalist was contacted and patient admitted to the medical surgical floor for anemia, syncope. The patient received 2 units of PRBC resulting in an H&H of 9.3 and 31.3. H&H remained stable. Telemetry showed a sinusal rhythm without bradycardia or tachyarrhythmias; NH 220 to 250ms. Iron deficiency anemia and iron supplementation was ordered. Physical therapy consultation was completed with recommendation for home health physical therapy. The patient will need a complete workup for anemia including EGD and colonoscopy. Outpatient surgical referral was completed with further follow-up as per primary care practitioner. An outpatient cardiac US/ echocardiogram was also ordered with further management as per PCP. Discussed with Dr. Day. Home Meds and New Rx's Prescriptions: New ferrous sulfate 325 mg (65 mg iron) Tablet 325 mg PO DAILY Qty: 30 0RF acetaminophen 325 mg capsule 650 mg PO Q6H PRN PRNQty: 60 0RF Continued duloxetine [Cymbalta] 60 mg capsule,delayed release(DR/EC) 60 mg PO DAILY Qty: 90 3RF benztropine 0.5 mg tablet 0.5 mg PO BID Qty: 180 3RF aripiprazole [Abilify] 30 mg tablet 30 mg PO DAILY Qty: 90 3RF quetiapine 200 mg tablet extended release 24 hr 200 mg PO QHS Qty: 90 3RF atorvastatin 10 mg tablet 10 mg PO QPM Qty: 90 3RF clonazepam 0.5 mg tablet 0.5 mg PO BID Qty: 60 2RF metformin 1,000 mg tablet 1,000 mg PO BID Qty: 180 3RF Held ibuprofen 600 mg tablet 600 mg PO Q8H PRN Hold Instructions: Resume on 07/23/24. Discuss resumption with primary care practitioner after anemia work-up results, please Discharge Instructions Referrals: [facility]G,[facility] [OTHER] - (Anemia work-up with EGD and colonoscopy please. Stool occult blood negative - H&H 01/27 on admit -2 PRBC given- stable H&H.) Guillaume Kline MD [Primary Care Provider] - (Follow-up with PCP with 7 days please) Activity:: Activity as Tolerated Equipment/Supplies:: Walker Diet:: heart healthy diabetic - iron rich Discharge Orders Discharge Orders: Discharge Order (Routine); Ordered 07/07/24 Ordered By: Selena Mcdonough DS: Summary Time Spent with Patient providing and/or coordinating discharge services: Greater than 30 minutes Status at Discharge Functional status at discharge: uses cane/walker Overall status at discharge: patient is progressing back to baseline Mental Status: mental status grossly normal Speech and Movement: speech and movement normal Mood: congruent mood Affect: normal affect Quality:SDOH Health Related Social Needs: Health related social needs inadequate housing(Z59.1) Exam Narrative Exam Narrative: Constitutional The patient is sitting in chair without acute distress HENMT: Facial structures with normal appearance Neuro:alert and oriented X4. No neurological focal deficit Resp: Unlabored breathing, clear lung bilaterally Cardio: Sinusal rhythm HR 77 on tele, S1, S2, no murmur GI: Abdomen is not distended, soft and non tender, bowel sounds are present Back/spine/Pelvis: Slight right lower back tenderness, normal alignment Extremities: strength 5/5 to bilateral lower and upper extremities Psych: RASS 0, congruent mood and normal affect. Psych Mental Status: mental status grossly normal Speech and Movement: speech and movement normal Mood: congruent mood Affect: normal affect DS: Data Vitals/I&O Vitals and I&O: Vital Signs Temperature 36.5 C 07/07/24 09:32 Temperature Source Tympanic 07/07/24 09:32 Pulse 77 07/07/24 09:32 Pulse Rhythm Regular 07/05/24 22:20 Pulse 80 07/05/24 21:50 Respiratory Rate 18 07/07/24 09:32 Respiratory Effort Normal 07/05/24 22:20 Respiratory Depth Normal 07/05/24 22:20 Respiratory Pattern Normal 07/05/24 22:20 Blood Pressure 133/66 07/07/24 09:32 Blood Pressure Mean 92 07/05/24 21:46 Blood Pressure Position Sitting 07/05/24 19:11 Pulse Oximetry 96 07/07/24 09:32 Oxygen Delivery Method Room Air 07/07/24 09:32 Oxygen Flow Rate 0 07/07/24 09:32 Pain Level 0 07/07/24 04:02 Comment pT c/o pain in lower back. 07/06/24 11:21 Intake & Output 07/06/24 07/06/24 07/07/24 11:59 23:59 11:59 Intake Total 880 / 880 Output Total 1100 / 1825 725 / 1825 550 / 550 Balance -220 / -945 -725 / -945 -550 / -550 Weight 96.9 kg Intake: IV 30 / 30 Oral 200 / 200 Blood Product 650 / 650 Rbc Leuko Reduced Unit 320 / 320 [id number] Rbc Leuko Reduced Unit 330 / 330 [id number] Output: Urine 1100 / 1825 725 / 1825 550 / 550 Other: Urine Color Yellow Yellow Yellow Urine Appearance Clear Clear Clear Urine Odor Normal None Data Completed and Pending Labs on day of discharge: Labs from last 24 hours 07/07/24 07/06/24 06:00 11:32 WBC 7.14 7.06 RBC 4.38 4.39 Hgb 9.0 L 9.2 L Hct 30.2 L 30.4 L MCV 69 L 69 L MCH 20.5 L 21.0 L MCHC 29.8 L 30.3 L RDW 23.6 H 23.0 H Plt Count 236 230 MPV 8.7 8.5 Immature Gran % 0.1 Neutrophils % 47.1 Lymphocytes % 32.1 Monocytes % 12.0 Eosinophils % 8.0 Basophils % 0.7 Nucleated RBC % 0.0 Absolute Neutrophils 3.36 Absolute Lymphocytes 2.29 Absolute Monocytes 0.86 H Absolute Eosinophils 0.57 Absolute Basophils 0.05 Sodium 140 Potassium 4.0 Chloride 105 Carbon Dioxide 29.8 Anion Gap 5.2 BUN 21 H Creatinine 1.3 Est GFR (CKD-EPI 2020) 58.01 Glucose 94 Calcium 8.8 PFSH All Active Problems (Updated 07/06/24 @ 18:18 by Selena Mcdonough APRN) Discharge planning issues (Acute) Schizophrenia (Chronic) Fall (Acute) Symptomatic anemia (Acute) Weakness generalized (Acute) Diabetes mellitus (Chronic) work on weight loss keep active A1c Obesity (BMI 30-39.9) (Acute 10/04/17) Medical History (Updated 07/06/24 @ 18:18 by Selena Mcdonough APRN) Dental caries (12/06/16) Rectus diastasis (12/06/16) [place]icard[place]15/18[place] [facility] [place] cerumen of both ears Diarrhea Pericarditis Depression Anxiety Surgical History No significant past surgical history Family History Mother No problems noted. Father Neoplasm BLADDER Sister Depression Sister No problems noted. Brother Heart disease Asthma Daughter No problems noted. Social History Smoking/Tobacco Use Status: Former Tobacco Use tobacco type: cigarettes Tobacco: How many years used: 4 Second Hand Exposure: Yes Smoking risk assessment performed?: Yes Alcohol Intake: former Drug use: Never Substance use type: does not use Caregiver/Support person: No Household members: none Housing: assisted living facility Communication Needs: Corrective Lenses Do you need help understanding health information?: Rarely Pets and animals: No Sexually active: No Do you think of yourself as: straight/heterosexual Current gender identity: male What is your relationship status?: How often do you talk on the phone with friends or family?: three or more times per week How often do you get together with friends or relatives?: three or more times per week How often do you attend scientology or scientologist services?: 4 or more times per year Do you belong to any clubs or organized social groups?: no Panel score (0-1 are the most socially isolated patients): 2 What type of physical activity do you participate in: walking Duration: 15-30 minutes/day Frequency: 3-4 times per week Izzy/Buddhism: Sabianist Special izzy needs: No Seatbelt use: always Drive intox or ride w/intox coal tram driver: No Do you feel safe at home: Yes Do you feel safe in your relationship?: Yes Time Spent with Patient Time Spent with Patient: 70-84 minutes4 Time was spent: preparing to see the patient(eg.review tests), obtaining and/or reviewing separately otained hiistory, ordering medications,tests, procedures, referring, communicating with other health animal care supervisor, indepentently interpreting results, counseling the patient and care coordination
--- NOTE | 2024-07-07 10:09 | PT.INTREAT ---
PT Notes Visit Reasons: Syncope/ Anemia Inpatient Physical Therapy Treatment Note [facility] Date: 07/07/24 SUBJECTIVE: Andrés states that he feels heavy on his feet. Offers no specific complaints to me today. OBJECTIVE: []? VITALS: ? monitored by [facility] Therapeutic Activities (11421p5): Direct one-on-one instruction in dynamic activities to improve functional performance. ? seated in recliner? Sit-stand: S? Stand-sit:S ? Provided skilled cues and instruction on performance and technique throughout. GAIT? Assistive Device: FWW? Weight bearing: full Assist:SBA ? Distance:?525' ? Deviation: slow brittni initially, but this improved as he went along. ?pt toileted as soon as we entered room. ASSESSMENT:? did well. He did begin to c/o slight fatigue towards end of his walk, but no signs LOB, shuffled gait. PLAN:will continue to work functional mobility to tolerance following PT POC. TREATMENT CODE/TIME: 20 min. [id number]
[2024-07-07 11:05] VITALS: BP 131/72; PULSE 77; RESP 16; TEMP 36.8; O2SAT 96
--- NOTE | 2024-07-07 11:41 | PDOC.HHF2F ---
Home Health Referral Home Health Orders Clinical synopsis of why skilled professionals are needed: This 70-year-old male patient with a past medical history of fall, chronic back pain, diabetes type 2, presented to the ED at [facility] via EMS status post feeling dizzy, lightheaded and falling on the tile floor. Patient mentioned falling on his right, shoulder and back with minimal bump to his head; had no loss of consciousness but was unable to get up for 7 hours. The patient reported back pain, sore right elbow, left-sided and middle neck pain. Workup in the ED was significant for severe anemia with an H&H of 7.0 and 23.5, creatinine at 1.4 close to baseline, CPK was 112. EKG showed sinus rhythm with a MT of 201 ms without signs of ischemia or acute injury; heart rate 82. Head cervical spine CT was negative for any acute abnormalities except for advanced right degenerative changes in the C-spine CT. Physical occult blood test was negative. Necessity for blood transfusion was explained by ED provider as well as risk and benefit. The patient agreed to blood transfusion. The hospitalist was contacted and patient admitted to the medical surgical floor for anemia, syncope. The patient received 2 units of PRBC resulting in an H&H of 9.3 and 31.3. H&H remained stable. Telemetry showed a sinusal rhythm without bradycardia or tachyarrhythmias; MT 220 to 250ms. Iron deficiency anemia and iron supplementation was ordered. Physical therapy consultation was completed with recommendation for home health physical therapy. The patient will need a complete workup for anemia including EGD and colonoscopy. Outpatient surgical referral was completed with further follow-up as per primary care practitioner. An outpatient cardiac US/ echocardiogram was also ordered with further management as per PCP. Discussed with Dr. Day Medical diagnosis necessitation home health referral: Anemia, syncope, weakness Physical Therapist: Check all that apply Increase strength & endurance for safe mobility at home: Ordered To design/establish home maintenance program: Ordered Fall reduction therapy program for patient with history of frequent falls: Ordered Home safety evaluation and teaching/gait training including stair management (if applicable): Ordered Home Bound Status Requires the aid of supportive device (check all that apply): Walker Describe why leaving home would require a considerable and taxing effort: Requires frequent rest periods and Safety Concerns: describe (Hx of fall/ syncope / anemia ) Encounter Date and Reason: I certify that a FTF encounter for this patient was performed on July 07, 2024 and that such encounter was related to the primary reason the patient requires home health services. The encounter was conducted in the following manner: By me as the certifying physician, ELECTRICAL LOGGING OPERATOR, PA or By an inpatient physician, ELECTRICAL LOGGING OPERATOR or PA during an inpatient stay who communicated findings to me, Certification And Authentication I certify that I composed the above information based on my clinical judgment relating to this patient's medical condition and, if applicable, clinical findings communicated to me by the NPP or inpatient physician who performed the FTF encounter. Name of Provider that will be monitoring home health services: Guillaume Kline
--- NOTE | 2024-07-07 17:46 | CMDISCH_ITS ---
Date of service: 07/07/24 Time of Service: 17:46 LACE Index Scoring Tool Questions: Length of Stay (in days): 2 Was the patient admitted via the E.D.?: Yes Comorbidities: Diabetes w/o Complication E.D. Visits: 1 Answers: Total Score: 7 Risk of Readmission: Low Risk Care Management Discharge Plan Reason for Hospitalization: anemia Discharge Plan: Andrés will be discharged home with new home health services for PT. He will follow up with his PCP and plan of care and transport via [facility] coordinated by CM. Patient/Family Education Needs: Review discharge instructions, discuss Ask Me Three Services Needed at Discharge: Home Health Care Services SDOH Health Related Social Needs: Health related social needs inadequate housing(Z59.1) Health related social needs: inadequate housing(Z59.1)
== END 2024-07-07 13:29 | disposition home health service (06) ==
LOC: ER 21:03 → MS 22:13
PROVIDERS: Nurse Practitioner Acute Care; Admitting Provider Family Medicine; Emergency Provider Emergency Medicine; PCP Family Medicine; Visit Provider Family Medicine
DX: D50.9 Iron deficiency anemia, unspecified (principal); I10 Essential (primary) hypertension; E11.9 Type 2 diabetes mellitus without complications; R53.1 Weakness; F20.9 Schizophrenia, unspecified; R55 Syncope and collapse; W19.XXXA Unspecified fall, initial encounter; Z79.84 Long term (current) use of oral hypoglycemic drugs; R29.6 Repeated falls; F32.A Depression, unspecified; F41.9 Anxiety disorder, unspecified; E66.9 Obesity, unspecified; Z68.29 Body mass index [BMI] 29.0-29.9, adult; M54.9 Dorsalgia, unspecified; M54.2 Cervicalgia
CPT/HCPCS: 00123; 36415; 36430; 80048; 80053; 82550; 85027; 86850; 86900; 86901; 86920; 93005; 97161; 97530; 99285; 70450; 72125; 81003; 82728; 83540; 83550; 85025; 93010; 99222; 99233; 99239; G0378; J3490; P9016

== ENCOUNTER 2024-07-30 01:49 | Outpatient (CLI) | payer MEDICARE, SELFPAY ==
--- NOTE | 2024-07-30 13:00 | DI.US_ITS ---
APPROVED REPORT EXAM: Comprehensive 2D, Doppler, and color-flow Echocardiogram [facility] Manager: Yessica Galarza RDCS (AE) Indications: Syncope Other Information Study Quality: Fair. Technically limited study due to body habitus. Conclusion Normal left ventricular wall thickness and chamber size. Ejection fraction is 55 to 60%. Wall motio n is normal Normal right ventricular size and function Both atria are normal in size. There is an incidental finding of an atrial septal aneurysm Aortic valve is calcified and probably trileaflet. There is mild aortic stenosis. Mean gradient is 14 mmHg, calculated aortic valve area 1.1 cm??. Mild aortic regurgitation There is no additional significant valvular disease Wall motion Left Ventricle The left ventricle is normal size. The left ventricular systolic function is normal. The left ventric ular ejection fraction is within the normal range. There is normal left ventricular wall thickness. T here is normal LV segmental wall motion. There is no ventricular septal defect visualized. LVEF is 56 %. Right Ventricle The right ventricle is normal size. The right ventricular systolic function is normal. Atria The left atrium size is normal. The right atrium size is normal. Atrial septal aneurysm is present. Aortic Valve Aortic valve is calcified. Aortic valve is probably trileaflet. Mild aortic stenosis Mean gradient i s 14 mmHg Calculated aortic valve area is 1.1 cm?? Mild aortic regurgitation. Mitral Valve Mild mitral annular calcification. No evidence of mitral valve stenosis. Trace mitral regurgitation. Tricuspid Valve The tricuspid valve is normal in structure. There is no tricuspid valve stenosis. Trace tricuspid reg urgitation. Unable to assess PA pressure. Pulmonic Valve The pulmonary valve is normal in structure. There is no pulmonic valvular stenosis. Trace pulmonic re gurgitation. Great Vessels The aortic root is normal in size. The ascending aorta is normal in size. Aortic arch is normal in ca liber. IVC is normal in size and collapses >50% with inspiration. Pericardium There is no pericardial effusion. 2D Dimensions IVSD d PLAX 0.93 cm M: 0.6-1.2 Ao Root d 2.80 cm M: 3.1 - 3.7 LVPW d PLAX 0.90 cm M: 0.6 - 1.2 Ao Asc Diam d 3.08 cm M: 2.6 - 3.4 LVID d PLAX 4.84 cm M: 4.2 - 5.8 LVDs 3.40 cm M: 2.5 - 4.0 LV EF Teichholz 56.9 % FS 29.85 % LV EDV (Teich) 109.5 mL LV ESV (Teich) 47.2 mL M-Mode TAPSE 2.02 cm (M/F) >1.7 Auto EF LV EDV A4C 127.3 mL LV EDV A2C 147.3 mL LV EDV BP 137.4 mL LV ESV A4C 57.8 mL LV ESV A2C 66.6 mL LV ESV BP 62.2 mL LVEF(%) A4C 54.6 % LVEF(%) A2C 54.8 % LVEF(%) BP 54.7 % LV SV A4C 69.5 ml LV SV A2C 80.6 ml LV SV BP 75.2 ml LV CO A4C 5.2 L/min LV CO A2C 6.1 L/min LV CO BP 5.7 L/min HR A4C 75.32 BPM HR A2C 75.32 BPM LV EDV Index (BP) LA Volume LA Length A4C 4.1 cm LA Length A2C 4.9 cm LA Area A4C s 13.96 cm2 LA Area A2C s 20.00 cm2 LA Vol A4C A-L 40.59 mL LA Vol A2C A-L 69.99 mL LA Vol Biplane A-L 58.2 mL LA Vol/BSA A4C A-L LA Vol/BSA A2C A-L LA Vol/BSA BP A-L 26.8 mL/m2 LA Vol A4C MOD 34.7 mL LA Vol A2C MOD 66.2 mL LA Vol BP MOD 52.0 mL RA Volume RA Area A4C 14.6 cm2 RA ESV A4C (A-L) 39.0mL RA Vol/BSA A4C A-L RA Length A4C 4.6 cm RA ESV A4C (MOD) 38.2mL LV Diastology MV E' medial 0.104 (>0.07 m/s) MV E Vmax 0.80 (0.4-1.3 m/s) MV E/E' MED 7.72 (<14) MV A Vmax 1.15 (0.4-1.3 m/s) MV E' lateral 0.103 (>0.1 m/s) E/A Ratio 0.7 MV E/E' LAT 7.78 (<14) MV E' Average 0.103 m/s MV E/E'(average) 7.75 Aortic Valve AoV Vmax 2.55 m/s LVOT Vmax 0.96 m/s AoV Peak Grad 35.1 mmHg LVOT Peak Grad 3.7 mmHg AoV Area (Vmax) 1.21 cm2 LVOT VTI 0.169 m AoV VTI 0.493 m LVOT Mean Grad 2.1 mmHg AoV Mean Ryland. 1.80 m/s LVOT SV 54.35 mL AoV Mean Grad 14.4 mmHg LVOT Diam s 2.00 cm AoV Area (VTI) 1.10 cm2 AV Regurg Peak Gr. 25.97 mmHg Velocity Ratio 0.38 AR Decel [place] 1.2m/sec2 AR DT 2883 msec AR PHT 836 msec AR Vmax 3.32 m/s Mitral Valve MV DT 282 (160-240 msec) MV Vmax TIPS 1.12 m/s MV Mean Grad 1.9 (<2mmHg) MV VTI 0.268 m Pulmonary Valve PV Vmax 1.56 (0.5-1.5 m/s) RVOT Vmax 0.83 m/s PV Peak Grad 9.7 mmHg RVOT Peak Gr. 2.8 mmHg PV Mean Ryland 1.06 m/s RVOT VTI 0.169 m PV Mean Grad 5.2 mmHg RVOT Mean Gr. 1.9 mmHg Tricuspid Valve RA Pressure 3.00 mmHg TV S' 0.12 m/s
== END 2024-07-30 02:09 ==
LOC: DI 01:49
PROVIDERS: PCP Family Medicine; Visit Provider Internal Medicine Cardiovascular Disease
DX: R55 Syncope and collapse (principal); I35.0 Nonrheumatic aortic (valve) stenosis; Q21.19 Other specified atrial septal defect
CPT/HCPCS: 93306

== ENCOUNTER 2025-04-26 06:12 | Observation (INO) | payer MEDICARE, SELFPAY ==
[2025-04-26] VITALS (25 sets, daily range): BP systolic 121–167; BP diastolic 71–91; PULSE 72–104; RESP 15–23; TEMP 35.7–36.6; O2SAT 93–97
--- NOTE | 2025-04-26 06:00 | RT.EKG_ITS ---
APPROVED REPORT Exam: Resting ECG Reason for Exam: fall/ unknown mechanism Patient Location: E HR:91 bpm ECG Measurements Heart Rate 91 AXIS KS 185 P 76 QRSd 95 QRS -39 QT 359 T 74 QTc 442 Conclusion Sinus rhythm...normal P axis, V-rate 60- 99 Left axis deviation...QRS axis (-30,-90)
[2025-04-26 06:20] LABS: BE (Venous) 5 mmol/L (-2-3); HCO3 (Venous) 30 mmol/L (23-28); O2 Sat (Venous) 32 %; TCO2 (Venous) 28 mmol/L (24-29); pCO2 (Venous) 51 mmHg (41-51); pO2 (Venous) 20 mmHg
[2025-04-26 06:23] LABS: Abs Immature Grans 0.02 10^3/uL (0.0-0.06); HCT 34.0 % (40.0-50.0); HGB 11.2 g/dL (13.5-17.5); Immature Grans % 0.2 %; MCH 28.4 pg (27.0-33.0); MCHC 32.9 % (32.0-36.0); MCV 86 fL (80-95); MPV 8.8 fL (8.0-11.0); Platelet Count 188 10^3/uL (130-400); RBC 3.95 10^6/uL (4.36-5.78); RDW 13.3 % (11.8-14.1); RDW-SD 41.3 fL; WBC 11.88 10^3/uL (4.4-10.8)
[2025-04-26 06:46] LABS: ALT 27 U/L (16-63); AST 36 U/L (15-37); Albumin 3.7 g/dL (3.4-5.0); Alkaline Phosphatase 82 U/L (46-116); Anion Gap 8.4 mmol/L (3-11); BUN 20 mg/dL (7-18); Bilirubin, Total 0.9 mg/dL (0.2-1.0); CO2 30.6 mmol/L (21.0-32.0); Calcium 9.1 mg/dL (8.5-10.1); Chloride 97 mmol/L (98-107); Estimated GFR 57.65 (mL/min/1.73m2); Glucose 139 mg/dL (74-106); Lipase 11 U/L (<78); Potassium 4.1 mmol/L (3.5-5.1); Sodium 136 mmol/L (136-145); Total Protein 8.1 g/dL (6.4-8.2); Troponin I 22 ng/L (<or=76)
[2025-04-26] MEDS: Omnipaque 350 MG/ML 100 ML BTL IJ (06:47)
[2025-04-26] MEDS: Normal Saline - Diluent 50 ML VIAL IJ (06:47)
[2025-04-26] MEDS: ACETAMINOPHEN 1,000 MG/100 ML BAG 400 MG IVPB (06:48)
[2025-04-26] MEDS: Ondansetron 4 MG/2 ML VIAL IVP (06:48)
[2025-04-26] MEDS: Normal Saline Flush 10 ML SYR IVP (06:48)
--- NOTE | 2025-04-26 06:48 | DI.CT_ITS ---
Exam(s) CT HEAD CERVICAL SPINE WO EXAM: CT HEAD CERVICAL SPINE WO CLINICAL HISTORY: unwitnessed fall, AMS, unknown AC. TECHNIQUE: Imaging Protocol: Axial computed tomography images with coronal and sagittal reformatted images were created and reviewed COMPARISON: CT CT HEAD CERVICAL SPINE WO from 07/05/2024 FINDINGS: Head CT Ventricles and Extra axial spaces: Normal in size and morphology for the patient's age. Hemorrhage: None. Cerebral parenchyma: No evidence of mass or acute infarct. Mild atrophy. Midline shift: None. Brainstem/Cerebellum: Normal. Calvarium: Normal. Visualized Paranasal sinuses/Mastoids: Mucous retention in the right frontal sinus. Soft tissues: Unremarkable. Cervical Spine CT BONES: Vertebral body heights are maintained. Alignment is normal. There is no evidence of acute fracture. 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 There are severe degenerative disc changes and facet degenerative changes, with prominent flowing endplate osteophytes projecting anteriorly. Findings could represent DISH. There is severe bilateral neural foraminal narrowing. SOFT TISSUES: No paraspinal hematoma. The airway appears intact. No pneumothorax is seen at the lung apices. IMPRESSION: Head CT: No acute abnormality. C-spine CT: Severe degenerative changes, no acute abnormality. The preliminary [facility] report was reviewed. RADIATION DOSE DELIVERED: Total DLP DATA REPOSITORY: All CT scans at this facility are submitted to the National Radiology Data Registry (NRDR) Dose Index Registry (DIR) with the [employer] ([employer]). RADIATION OPTIMIZATION: All CT scans at this facility use at least one of these dose optimization techniques: automated exposure control; mA and/or kV adjustment per patient size (includes targeted exams where dose is matched to clinical indication); or iterative reconstruction.
--- NOTE | 2025-04-26 06:49 | DI.CT_ITS ---
Exam(s) CT CHEST/ABD/PEL W CT THORACIC LUMBAR SPINE REC EXAM: CT CHEST/ABD/PEL W CLINICAL HISTORY: unwitness fall, AMS, back pain. TECHNIQUE: Imaging Protocol: Axial computed tomography images with coronal and sagittal reformatted images were created and reviewed. Computer aided detection (CAD) was utilized. CONTRAST MATERIAL: Intravenous: Omnipaque 350 Contrast volume:100 ml Oral: / no COMPARISON: CT CT ABDOMEN PELVIS W from 06/20/2021 FINDINGS: CHEST: Pulmonary parenchyma: No consolidation. No dominant measurable mass. Tracheobronchial tree: No bronchiectasis. No mucous plugging.No bronchial wall thickening. Pleura: No effusion or pneumothorax. Mediastinum: Within normal limits. Pulmonary arteries: No visible emboli. Cardiovascular: Heart size is normal. There are coronary artery calcifications. No pericardial effusion. Thoracic aorta non-dilated. Bones/thoracic spine: Degenerative changes. No lytic or blastic lesions. No compression fractures or rib fractures. Soft tissues: Unremarkable. ABDOMEN and PELVIS: Exam is mildly limited by streak artifact due to patient arm positioning. Liver: A cyst is again noted at the posterior inferior right lobe of the liver. Normal density. No suspicious mass. Gallbladder and biliary tract: No evidence of stones or wall thickening. No biliary dilatation. Pancreas: The tail is somewhat atrophic. Calcifications again noted in the body. Spleen: Normal. Kidneys: Normal size, contour and axis. No radiodense stones. No obstructive uropathy. No suspicious masses seen. Adrenal glands: No masses seen. Aorta: Abdominal portion non-dilated. Lymph nodes: Within normal limits. Soft tissues: Unremarkable. Bladder: Somewhat over distended. Several bladder diverticular noted. Bowel: No obstruction or bowel wall thickening. Peritoneal cavity: No ascites. No focal collection. No mesenteric inflammatory response. No free air. Bones/spine: No evidence of spine or pelvic fracture. Advanced degenerative changes and mild scoliosis. Reproductive organs: Unremarkable for age. IMPRESSION: No acute abnormality in the chest, abdomen or pelvis. Degenerative changes are present in the thoracic and lumbar spine. There is no evidence of fracture. The preliminary [facility] report was reviewed. RADIATION DOSE DELIVERED: Total DLP DATA REPOSITORY: All CT scans at this facility are submitted to the National Radiology Data Registry (NRDR) Dose Index Registry (DIR) with the [employer] (ACR). RADIATION OPTIMIZATION: All CT scans at this facility use at least one of these dose optimization techniques: automated exposure control; mA and/or kV adjustment per patient size (includes targeted exams where dose is matched to clinical indication); or iterative reconstruction.
[2025-04-26 06:50] LABS: Ammonia < 10 umol/L (11-32)
[2025-04-26 06:56] LABS: NT-proBNP 658 pg/mL (<300); TSH (W/Ref FT4) 2.85 uIU/mL (0.36-3.74)
[2025-04-26 07:04] LABS: INR 1.0 (0.9-1.1); PTT Activated 23.9 sec (20.6-30.2); Prothrombin Time 10.5 sec (9.1-11.1)
--- NOTE | 2025-04-26 07:10 | ED.GENADUL_ITS ---
Discharge Plan Discharge Details Chief Complaint: Trauma Primary Care Provider: Guillaume Kline ED Provider: Kendra Mendoza Home Meds and New Rx's Prescriptions: No Action atorvastatin 10 mg tablet 10 mg PO QPM Qty: 90 3RF ferrous sulfate [FeroSul] 325 mg (65 mg iron) tablet 325 mg PO DAILY Qty: 90 3RF ibuprofen 600 mg tablet 600 mg PO Q8H PRN metformin 1,000 mg tablet 1,000 mg PO BID Qty: 180 3RF duloxetine [Cymbalta] 60 mg capsule,delayed release(DR/EC) 60 mg PO DAILY Qty: 90 3RF aripiprazole [Abilify] 30 mg tablet 30 mg PO DAILY Qty: 90 3RF quetiapine 200 mg tablet extended release 24 hr 200 mg PO QHS Qty: 90 3RF benztropine 0.5 mg tablet 0.5 mg PO BID Qty: 180 3RF clonazepam 0.5 mg tablet 0.5 mg PO BID Qty: 60 2RF loratadine 10 mg tablet 10 mg PO DAILY Qty: 30 2RF ferrous sulfate 325 mg (65 mg iron) Tablet 325 mg PO DAILY Qty: 30 0RF acetaminophen 325 mg capsule 650 mg PO Q6H PRN PRNQty: 60 0RF HPI General Mode of arrival: EMS . Date/Time Provider Initiated Documentation: 04/26/25 06:15 . Limitations to Documentation: altered mental status . Information obtained by: patient, EMS and old records reviewed . HPI Narrative: 74yo M with hx DM, anemia, schizophrenia, presenting for a fall. Unknown baseline mental status, seemed confused for EMS. Patient reports poor balance at baseline and that today he had right hip pain and then fell. He did strike his head, does not think he lost consciousness. He is unable to provide further clarifying history; on ROS reports headache and back pain. Denies neck pain, numbness, focal weakness, vertigo, vision changes, neck pain, chest pain, shortness of breath, abdominal pain, arm pain, leg pain, recent illness, or other concerns. Related Data Home Medications ?Medication ?Instructions ?Recorded ?Confirmed ibuprofen 600 mg tablet 600 mg PO Q8H PRN 10/17/18 0 10/03/24 Held on 07/07/24. Instructions: Resume on 07/23/24. Discuss resumption with primary care practitioner after anemia work-up results, please metformin 1,000 mg tablet 1,000 mg PO BID #180 tab-cap s 06/25/24 10/03/24 acetaminophen 325 mg capsule 650 mg (2 x 325 mg) PO Q6 H PRN PRN 07/07/24 10/03/24 #60 caps ferrous sulfate 325 mg (65 mg 325 mg PO DAILY #30 tabs 07/07/24 10/03/24 iron) tablet duloxetine 60 mg capsule,delayed 60 mg PO DAILY #90 ca ps 07/15/24 10/03/24 release (Cymbalta) ferrous sulfate 325 mg (65 mg 325 mg PO DAILY #90 tabs 07/18/24 10/03/24 iron) tablet (FeroSul) aripiprazole 30 mg tablet (Abilify) 30 mg PO DAILY #90 tabs 09/09/24 10/03/24 benztropine 0.5 mg tablet 0.5 mg PO BID #180 tabs 09/09 08/03 quetiapine 200 mg tablet,extended 200 mg PO QHS #90 ta bs 10/07/24 release 24 hr atorvastatin 10 mg tablet 10 mg PO QPM #90 tabs 01/10/25 clonazepam 0.5 mg tablet 0.5 mg PO BID #60 tabs 02/10 loratadine 10 mg tablet 10 mg PO DAILY #30 tabs 04/09 01/01 Previous Rx's ?Medication ?Instructions ?Recorded metformin 1,000 mg tablet 1,000 mg PO BID #180 tab-cap s 06/25/24 acetaminophen 325 mg capsule 650 mg (2 x 325 mg) PO Q6 H PRN PRN 07/07/24 #60 caps ferrous sulfate 325 mg (65 mg 325 mg PO DAILY #30 tabs 07/07/24 iron) tablet duloxetine 60 mg capsule,delayed 60 mg PO DAILY #90 ca ps 07/15/24 release (Cymbalta) ferrous sulfate 325 mg (65 mg 325 mg PO DAILY #90 tabs 07/18/24 iron) tablet (FeroSul) aripiprazole 30 mg tablet (Abilify) 30 mg PO DAILY #90 tabs 09/09/24 benztropine 0.5 mg tablet 0.5 mg PO BID #180 tabs 09/09 08/03 quetiapine 200 mg tablet,extended 200 mg PO QHS #90 ta bs 10/07/24 release 24 hr atorvastatin 10 mg tablet 10 mg PO QPM #90 tabs clonazepam 0.5 mg tablet 0.5 mg PO BID #60 tabs 02/10 loratadine 10 mg tablet 10 mg PO DAILY #30 tabs 04/09 01/01 Allergies Allergy/AdvReac Type Severity Reaction Status Date / Time No Known Allergies Allergy Unverified 10/03/24 14:01 General Stated Complaint: Trauma SOLO: 2 Review of Systems Narrative: see HPI Exam Narrative Exam Narrative: GENERAL: Opens eyes to voice. Flat affect. C-collar in place. SKIN: Warm and well perfused. No rashes, bruises, discolorations or abrasions. HEAD: Atraumatic, normocephalic without edema, discoloration or evidence of trauma. Facial bones without deformities or tenderness. EYES: PERRL. No scleral icterus or conjunctival injection. Extraocular muscles intact without nystagmus or diplopia. No proptosis or enophthalmos. EARS: No hemotympanum. NOSE: No discharge, tenderness, laxity. No nasal septal hematoma. MOUTH: No malocclusion or trismus. Moist mucus membranes without blood. NECK: Trachea midline. No discolorations or edema. Neck immobilized in cervical collar. CV: Regular rate and rhythm, Normal s1 and s2. No murmurs, rubs, or gallops. PV: Radial pulses 2+ bilaterally and symmetric. PT pulses present bilaterally and symmetric. 2+ capillary refill. No extremity edema. CHEST: No abrasions or ecchymosis. Chest symmetric with respirations. No chest wall tenderness. Lungs are clear to auscultation bilaterally. ABDOMEN: No ecchymosis or abrasions. Soft, nondistended, nontender. BACK: No abrasions, skin openings, or ecchymosis. Spine without bony tenderness, no step offs. PELVIC: Pelvis stable, nontender to lateral compression : Normal external genitalia without blood at meatus. No ecchymosis or edema. MSK: No gross deformities or discolorations or lesions. Tolerates full range of motion of extremities without tenderness. NEURO: GCS 13 (E3 V4 M6) PERRL.? EOMI.? Edentulous speech Motor- 5/5 strength symmetric bilateral upper and lower extremities Sensation- ?Intact to light touch and symmetric multiple dermatomes including upper and lower extremities Coordination- No dysmetria on finger to nose Reflexes- 1/4 achilles & patellar, no clonus Gait/station: ?Not tested CRANIAL NERVES: II: Pupils equal and reactive, III, IV, : EOM intact, no gaze preference or deviation, no nystagmus. V: normal sensation in V1, V2, and V3 segments bilaterally VII: no asymmetry, no nasolabial fold flattening VIII: normal hearing to speech IX, X: normal palatal elevation, no uvular deviation XI: Not tested (c-collar) XII: midline tongue protrusion Course Vital Signs Vital signs: Vital Signs Temperature 35.7 C L 04/26/25 06:00 Pulse 89 04/26/25 06:00 Respiratory Rate 18 04/26/25 06:00 Blood Pressure 167/91 H 04/26/25 06:00 Pulse Oximetry 95 04/26/25 06:00 Temperature 35.7 C L 04/26/25 06:00 Temperature Source Tympanic 04/26/25 06:00 Pulse 89 04/26/25 06:00 Respiratory Rate 18 04/26/25 06:00 Respiratory Effort Normal, Non-Labored 04/26/25 06:53 Respiratory Depth Normal 04/26/25 06:53 Respiratory Pattern Normal 04/26/25 06:53 Blood Pressure 167/91 H 04/26/25 06:00 Blood Pressure Position Supine 04/26/25 06:00 Pulse Oximetry 95 04/26/25 06:00 Oxygen Delivery Method Room Air 04/26/25 06:00 Oxygen Flow Rate 0 04/26/25 06:00 Pain Level 5 04/26/25 06:00 Lab/Test Results Lab/Test Results: Laboratory Tests Range/Units 04/26/25 04/26/25 04/26/25 06:15 06:15 06:20 WBC (4.4-10.8) 10^3/uL 11.88 H RBC (4.36-5.78) 10^6/uL 3.95 L Hgb (13.5-17.5) g/dL 11.2 L Hct (40.0-50.0) % 34.0 L MCV (80-95) fL 86 MCH (27.0-33.0) pg 28.4 MCHC (32.0-36.0) % 32.9 RDW (11.8-14.1) % 13.3 Plt Count (130-400) 10^3/uL 188 MPV (8.0-11.0) fL 8.8 Immature Gran % % 0.2 Neutrophils % % 71.7 Lymphocytes % % 15.9 Monocytes % % 10.5 Eosinophils % % 1.4 Basophils % % 0.3 Nucleated RBC % (0.0-0.3) % 0.0 Absolute Neutrophils (1.2-6.7) 10^3/uL 8.52 H Absolute Lymphocytes (1.2-3.4) 10^3/uL 1.89 Absolute Monocytes (0.1-0.8) 10^3/uL 1.25 H Absolute Eosinophils (0.0-0.7) 10^3/uL 0.17 Absolute Basophils (0.0-0.2) 10^3/uL 0.04 PT (9.1-11.1) sec 10.5 INR (0.9-1.1) 1.0 APTT (20.6-30.2) sec 23.9 VBG pH (7.31-7.41) 7.39 VBG pCO2 (41-51) mmHg 51 VBG pO2 mmHg 20 VBG HCO3 (23-28) mmol/L 30 H VBG Total CO2 (24-29) mmol/L 28 VBG O2 Saturation % 32 VBG Base Excess (-2-3) mmol/L 5 H Sodium (136-145) mmol/L 136 Potassium (3.5-5.1) mmol/L 4.1 Chloride (98-107) mmol/L 97 L Carbon Dioxide (21.0-32.0) mmol/L 30.6 Anion Gap (3-11) mmol/L 8.4 BUN (7-18) mg/dL 20 H Creatinine (0.70-1.30) mg/dL 1.3 Est GFR (CKD-EPI 2020) (mL/min/1.73m2) 57.65 Glucose (74-106) mg/dL 139 H Calcium (8.5-10.1) mg/dL 9.1 Total Bilirubin (0.2-1.0) mg/dL 0.9 AST (15-37) U/L 36 ALT (16-63) U/L 27 Alkaline Phosphatase (46-116) U/L 82 Ammonia (11-32) umol/L < 10 L Troponin I (<or=76) ng/L 22 22 NT-Pro-B Natriuret Pep (<300) pg/mL 658 H Total Protein (6.4-8.2) g/dL 8.1 Albumin (3.4-5.0) g/dL 3.7 Lipase (<78) U/L 11 TSH (0.36-3.74) uIU/mL 2.85 Ethyl Alcohol (<10) mg/dL < 3.0 Medical Decision Making 74yo M with hx DM, anemia, schizophrenia, presenting for right hip pain and back pain after an unwitnessed fall. Medical history for [facility] record review. Unknown baseline mental status, confused and poor historian on exam. Flat affect. Hypertensive on arrival, vital signs otherwise reassuring, EKG with no acute ischemic changes. No obvious traumatic findings on exam, GCS 13, non- focal neurologic exam. Given unknown baseline and extremely poor historian, will evaluate broadly for AMS with labs, trauma with CT davidson-scan. Will be signed out to [facility] physic, to followup workup as above and reassess. Disposition pending results and clinical course. [facility] All Active Problems (Updated 07/18/24 @ 12:34 by Guillaume Kline MD) Iron deficiency anemia (Acute) Schizophrenia (Chronic) Symptomatic anemia (Acute) Diabetes mellitus (Chronic) work on weight loss keep active A1c Obesity (BMI 30-39.9) (Acute 10/04/17) Medical History (Updated 07/18/24 @ 12:34 by Guillaume Kline MD) Fall Dental caries (12/06/16) Rectus diastasis (12/06/16) [place]ard[place] [facility] [place] Diarrhea Pericarditis Depression Anxiety Surgical History No significant past surgical history Family History Mother No problems noted. Father Neoplasm BLADDER Sister Depression Sister No problems noted. Brother Heart disease Asthma Daughter No problems noted. Social History Smoking/Tobacco Use Status: Former Tobacco Use tobacco type: cigarettes Tobacco: How many years used: 4 Second Hand Exposure: Yes Smoking risk assessment performed?: Yes Alcohol Intake: former Drug use: Never Substance use type: does not use Caregiver/Support person: No Household members: none Housing: assisted living facility Communication Needs: Corrective Lenses Do you need help understanding health information?: Rarely Pets and animals: No Sexually active: No Do you think of yourself as: straight/heterosexual Current gender identity: male What is your relationship status?: How often do you talk on the phone with friends or family?: three or more times per week How often do you get together with friends or relatives?: three or more times per week How often do you attend adventism or mormonism services?: 4 or more times per year Do you belong to any clubs or organized social groups?: no Panel score (0-1 are the most socially isolated patients): 2 What type of physical activity do you participate in: walking Duration: 15-30 minutes/day Frequency: 3-4 times per week Izzy/Hinduism: Judaism Special izzy needs: No Seatbelt use: always Drive intox or ride w/intox special client bus driver: No Do you feel safe at home: Yes Do you feel safe in your relationship?: Yes
--- NOTE | 2025-04-26 07:14 | DI.VRAD_ITS ---
PROCEDURE INFORMATION: Exam: CT Chest With Contrast; Diagnostic Exam date and time: 04/26/2025 6:32 AM Age: 74 years old Clinical indication: Injury or trauma; Generalized; Blunt trauma (contusions or hematomas); Injury date: 04/26/25; Unwitness fall, AMS, back pain TECHNIQUE: Imaging protocol: Diagnostic computed tomography of the chest with contrast. Radiation optimization: All CT scans at this facility use at least one of these dose optimization techniques: automated exposure control; mA and/or kV adjustment per patient size (includes targeted exams where dose is matched to clinical indication); or iterative reconstruction. Contrast material: [id number]; Contrast volume: 100 ml; Contrast route: INTRAVENOUS (IV); COMPARISON: CT CHEST PE CTA 10/13/2018 11:24 AM FINDINGS: Trachea: Major airways are patent. Lungs: Minimal dependent atelectasis. Pleural spaces: Unremarkable. No pneumothorax. No pleural effusion. Heart: Heart size is normal. No pericardial effusion. Coronary arteries: No coronary artery calcification. Lymph nodes: Unremarkable. No enlarged lymph nodes. Vasculature: No aortic aneurysm or dissection. Bones/joints: Unremarkable. No acute fracture. Soft tissues: Unremarkable. IMPRESSION: No acute findings. PROCEDURE INFORMATION: Exam: CT Abdomen And Pelvis With Contrast Exam date and time: 04/26/2025 6:32 AM Age: 74 years old Clinical indication: Injury or trauma; Generalized; Blunt trauma (contusions or hematomas); Injury date: 04/26/25; Unwitness fall, AMS, back pain TECHNIQUE: Imaging protocol: Computed tomography of the abdomen and pelvis with contrast. Radiation optimization: All CT scans at this facility use at least one of these dose optimization techniques: automated exposure control; mA and/or kV adjustment per patient size (includes targeted exams where dose is matched to clinical indication); or iterative reconstruction. Contrast material: [id number]; Contrast volume: 100 ml; Contrast route: INTRAVENOUS (IV); COMPARISON: CT ABDOMEN PELVIS W 06/20/2021 10:52 PM FINDINGS: Liver: Liver is slightly low attenuation suspicious for fatty infiltration. 5.1 cm right liver cyst. Gallbladder and biliary ducts: Normal. No calcified stones. No ductal dilation. Pancreas: Calcifications are seen in the pancreas which may be related to chronic pancreatitis. No ductal dilatation. Spleen: Normal. No splenomegaly. Adrenal glands: Normal. No mass. Kidneys and ureters: Kidneys enhance symmetrically. No stones or hydronephrosis. Stomach and bowel: Unremarkable stomach. Small bowel is normal in caliber. Unremarkable colon. Appendix: Normal appendix. Intraperitoneal space: Unremarkable. No free air. No significant fluid collection. Vasculature: No aortic aneurysm. Lymph nodes: Unremarkable. No enlarged lymph nodes. Urinary bladder: Trabeculated bladder. Reproductive: Unremarkable as visualized. Bones/joints: Degenerative changes in the spine. No acute fracture. Hips normally aligned. Soft tissues: Unremarkable. IMPRESSION: No acute findings. Hepatic steatosis. Dictated and Authenticated by: Kendra Argueta MD. Orderin Kelly Gardner MD
--- NOTE | 2025-04-26 07:14 | DI.VRAD_ITS ---
PROCEDURE INFORMATION: Exam: CT Head Without Contrast Exam date and time: 04/26/2025 6:30 AM Age: 74 years old Clinical indication: Injury or trauma; Blunt trauma (contusions or hematomas); Consciousness not specified; Injury date: 04/26/25; Unwitnessed fall, AMS, unknown ac TECHNIQUE: Imaging protocol: Computed tomography of the head without contrast. Radiation optimization: All CT scans at this facility use at least one of these dose optimization techniques: automated exposure control; mA and/or kV adjustment per patient size (includes targeted exams where dose is matched to clinical indication); or iterative reconstruction. COMPARISON: CT HEAD CERVICAL SPINE WO 07/05/2024 7:40 PM FINDINGS: Brain: No intracranial hemorrhage appreciated. No significant focal mass effect or significant midline shift. Generalized parenchymal volume loss. Chronic ischemic changes are noted. Cerebral ventricles: No disproportionate ventriculomegaly. Paranasal sinuses: Partially opacified right frontal sinus. Mastoid air cells: No mastoid effusion. Bones: No acute cranial vault fracture seen. Soft tissues: No acute findings. Vasculature: Arterial calcifications. IMPRESSION: 1. No intracranial sequelae of trauma appreciated. 2. Nonacute findings as outlined above. 3. Additional studies dictated separately. PROCEDURE INFORMATION: Exam: CT Cervical Spine Without Contrast Exam date and time: 04/26/2025 6:30 AM Age: 74 years old Clinical indication: Injury or trauma; Blunt trauma (contusions or hematomas); Consciousness not specified; Injury date: 04/26/25; Unwitnessed fall, AMS, unknown ac TECHNIQUE: Imaging protocol: Computed tomography of the cervical spine without contrast. Radiation optimization: All CT scans at this facility use at least one of these dose optimization techniques: automated exposure control; mA and/or kV adjustment per patient size (includes targeted exams where dose is matched to clinical indication); or iterative reconstruction. COMPARISON: CT HEAD CERVICAL SPINE WO 07/05/2024 7:40 PM FINDINGS: Limitations: Mild motion artifact. Bones: No acute cervical spine fracture seen. Advanced degenerative changes. At C3-C4 there is marked bilateral foraminal narrowing. At C4-C5 there is marked bilateral foraminal narrowing and moderate canal narrowing. At C5-C6 there is marked right and moderate left foraminal narrowing and moderate canal narrowing. At C6-C7 there is marked bilateral foraminal narrowing and moderate canal narrowing. Chronic defect in the C1 posterior arch. Multilevel spinal fusion. Lungs: No acute findings. Lymph nodes: Bilateral cervical lymph nodes. Vasculature: Arterial calcifications. Soft tissues: No acute findings. IMPRESSION: 1. No acute cervical spine fracture seen. 2. Findings as above. 3. Additional studies dictated separately. Dictated and Authenticated by: Riri Griffin MD. Orderin Kelly Gardner MD
--- NOTE | 2025-04-26 07:29 | DI.VRAD_ITS ---
PROCEDURE INFORMATION: Exam: CT Thoracic Spine Without Contrast Exam date and time: 04/26/2025 6:32 AM Age: 74 years old Clinical indication: Injury or trauma; Blunt trauma (contusions or hematomas); Injury date: 04/26/25; Unwitness fall, AMS, back pain TECHNIQUE: Imaging protocol: Computed tomography of the thoracic spine without contrast. Radiation optimization: All CT scans at this facility use at least one of these dose optimization techniques: automated exposure control; mA and/or kV adjustment per patient size (includes targeted exams where dose is matched to clinical indication); or iterative reconstruction. COMPARISON: CT HEAD CERVICAL SPINE WO 04/26/2025 6:30 AM FINDINGS: Bones/joints: No acute fracture. Normal alignment. Degenerative changes throughout the spine. No significant disc bulge or herniation. No severe spinal canal stenosis. No significant neural foraminal narrowing. Soft tissues: Unremarkable. IMPRESSION: No acute findings. Multilevel degenerative changes . PROCEDURE INFORMATION: Exam: CT Lumbar Spine Without Contrast Exam date and time: 04/26/2025 6:32 AM Age: 74 years old Clinical indication: Injury or trauma; Blunt trauma (contusions or hematomas); Injury date: 04/26/25; Unwitness fall, AMS, back pain TECHNIQUE: Imaging protocol: Computed tomography of the lumbar spine without contrast. Radiation optimization: All CT scans at this facility use at least one of these dose optimization techniques: automated exposure control; mA and/or kV adjustment per patient size (includes targeted exams where dose is matched to clinical indication); or iterative reconstruction. COMPARISON: CT ABDOMEN PELVIS W 06/20/2021 10:52 PM FINDINGS: Bones/joints: No acute fracture. Normal alignment. 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 L1-L2: No significant disc bulge or herniation. No severe spinal canal stenosis. No significant neural foraminal narrowing. L2-L3: No significant disc bulge or herniation. No severe spinal canal stenosis. No significant neural foraminal narrowing. L3-L4: Mild broad-based disc without focal herniation. Facet and ligamentous hypertrophy results in moderate central canal narrowing.. No severe spinal canal stenosis. No significant neural foraminal narrowing. L4-L5: Mild broad-based disc without focal herniation. Facet and ligamentous hypertrophy results in moderate central canal narrowing.. No significant neural foraminal narrowing. L5-S1: No significant disc bulge or herniation. No severe spinal canal stenosis. No significant neural foraminal narrowing. Soft tissues: Unremarkable. IMPRESSION: No acute fracture. Multilevel degenerative changes throughout the spine with broad-based disc, ligamentous and facet hypertrophy at L3-L4 and L4-L5 resulting in moderate central canal stenoses. Dictated and Authenticated by: Kendra Argueta MD. Orderin Kelly Gardner MD
[2025-04-26 07:55] LABS: Troponin I 25 ng/L (<or=76)
[2025-04-26 07:58] LABS: Glucose Negative (Negative)
--- NOTE | 2025-04-26 09:00 | PT.INIE ---
PT Notes Visit Reasons: Fall // [place] Inpatient/ER Physical Therapy Evaluation Date: 04/26/25 Referring Doctor: Moses Mahoney PT Orders: PT CONSULT: Safet consult for D/C Precautions: Fall precautions Patient Profile/Admitting Diagnosis: Pt was admitted to the ER via ambulance following a fall at home. He hit his head and c/o back pain. He was referred to PT for a safety evaluation. PMHX: see below Social History/Home Situation: Lives alone in an apartment at [facility] Current Functional Limitations: Assistance required for bed mobility, balance and gait impairments Equipment Owned/DME: Cane, rolling walker Subjective: Pt reports that he fell at home and currently has back and head pain. Also reported right LE pain with ambulation. He has both a walker and a cane at home and was using the cane at the time of the fall. Pt stated he was very tired and need cueing to open his eyes. Objective: General Observation: Sleepy, required cueing to open his eyes Mental Status: Pain: Head, back and right LE ROM: (B) Upper Extremity: Flexion approximately 120 (B) Lower Extremity: WFL but hip flexion was limited to about 95 Strength: (B) Upper Extremity: Grossly 4-/5 (B) Lower Extremity: Grossly 4 to 4-/5 Bed Mobility/Transfers: supine to sit: Min assist for with frequent verbal instructions. sit to supine: Min assist for trunk and mod asssit for LE Repositioning in bed min A and verbal instructions with tactile cues Gait: Pt was able to ambulate 50 ft with CG of 1 using a front wheeled rolling walker. Verbal instructions required for negotiating turns. He required verbal cues to open his eyes at one point while ambulating. Balance: Static Sitting: Fair Dynamic Sitting: Poor Static Standing: Fair Dynamic Standing: Fair Special Tests: Mobility Limitations Standardized Measure [facility] AM-PAC 6 clicks Basic Mobility Inpatient Short Form: Raw Score: 12 Standardized Score: 3.08 CMS Score: 68.66 Informed Consent/Education: Patient instructed in purpose of PT consult and plan of care. Assessment: Patient is a 74 year old male referred to physical therapy services for a safety consult. Patient presents with decreased ROM, decreased strength, impaired functional mobility, impaired gait and impaired balance as demonstrated by the following impairment level findings: difficulty with bed mobility, dynamic sitting and standing balance required for ADLs and difficulty ambulating. Pt lives alone and ambulates with a walker or cane at base line. He is currently requiring assistance for bed mobility and his balance impairments would hinder his ability to carry out his normal ADLs. Impairments are contributing to the following functional limitations: AMPAC score. Patient is assessed as a [] Low 32553 [x] Moderate 59584 [] High 44506 complexity based on the following: History: Pt was admitted to the ER via ambulance following a fall at home. He hit his head and c/o back pain. He was referred to PT for a safety evaluation. Decision Making: Moderate (1-2 history, 2-3 exam, evolving, mod-30 mins) Goals: Goals X1 week 1. Supine-Sit (I) 2. Sit-Supine (I) 3. Sit-Stand (I) 4. Stand-Sit (I) 5. Bed-Chair (I) 6. Chair-Bed (I) 7. Gait (I) with front wheeled rolling walker 8. Stairs (I) 9. Independent with home exercise program 10. Balance: pt will present with good dynamic balance with sitting and standing activities with the ability to mainatin balance (I)ly or correct balance if lost Plan of Care/Treatment Plan: 1-2x/day, 7 days/week x 1 week. Plan of care has been reviewed with the SUPERVISOR ADVICE providing the service under Physical Therapy direction. Initiate Physical Therapy intervention for strengthening, bed mobility, transfers, gait, stairs, balance training, use of assistive device. DISCHARGE RECOMMENDATIONS: Currently not able to safely perform bed mobility, transfers, ambulation and ADLS. May require either SNF or home health services to help restore to base line function. TREATMENT CODE/TIME: Mod IE(36904) 9:00-9:30 [facility] All Active Problems (Updated 07/18/24 @ 12:34 by Guillaume Kline MD) Iron deficiency anemia (Acute) Schizophrenia (Chronic) Symptomatic anemia (Acute) Diabetes mellitus (Chronic) work on weight loss keep active A1c Obesity (BMI 30-39.9) (Acute 10/04/17) Medical History (Updated 07/18/24 @ 12:34 by Guillaume Kline MD) Fall Dental caries (12/06/16) Rectus diastasis (12/06/16) Pericarditis 10/15/18; [facility] [place] Impacted cerumen of both ears Diarrhea Pericarditis Depression Anxiety Surgical History No significant past surgical history
--- NOTE | 2025-04-26 10:18 | PT.ERNOTE ---
PT Emergency Department Note ER Physical Therapy Evaluation Date: 04/26/25 Referring Doctor: Moses Mahoney PT Orders: PT CONSULT: Safet consult for D/C Patient Location: ER Precautions: Fall precautions Patient Profile/Admitting Diagnosis: Pt was admitted to the ER via ambulance following a fall at home. He hit his head and c/o back pain. He was referred to PT for a safety evaluation. PMHX: see below Social History/Home Situation: Lives alone in an apartment at [facility] Current Functional Limitations: Assistance required for bed mobility, balance and gait impairments Equipment Owned/DME: Cane, rolling walker Subjective: Pt reports that he fell at home and currently has back and head pain. Also reported right LE pain with ambulation. He has both a walker and a cane at home and was using the cane at the time of the fall. Pt stated he was very tired and need cueing to open his eyes. Objective: General Observation: Sleepy, required cueing to open his eyes Pain: Head, back and right LE ROM: (B) Upper Extremity: Flexion approximately 120 (B) Lower Extremity: WFL but hip flexion was limited to about 95 Strength: (B) Upper Extremity: Grossly 4-/5 (B) Lower Extremity: Grossly 4 to 4-/5 Bed Mobility/Transfers: supine to sit: Min assist for with frequent verbal instructions. sit to supine: Min assist for trunk and mod asssit for LE Repositioning in bed min A and verbal instructions with tactile cues Gait: Pt was able to ambulate 50 ft with CG of 1 using a front wheeled rolling walker. Verbal instructions required for negotiating turns. He required verbal cues to open his eyes at one point while ambulating. Balance: Static Sitting: Fair Dynamic Sitting: Poor Static Standing: Fair Dynamic Standing: Fair Special Tests: Mobility Limitations Standardized Measure [facility] AM-PAC 6 clicks Basic Mobility Inpatient Short Form: Raw Score: 12 Standardized Score: 3.08 CMS Score: 68.66 Informed Consent/Education: Patient instructed in purpose of PT consult and plan of care. Assessment: Patient is a 74 year old male referred to physical therapy services for a safety consult. Patient presents with decreased ROM, decreased strength, impaired functional mobility, impaired gait and impaired balance as demonstrated by the following impairment level findings: difficulty with bed mobility, dynamic sitting and standing balance required for ADLs and difficulty ambulating. Pt lives alone and ambulates with a walker or cane at base line. He is currently requiring assistance for bed mobility and his balance impairments would hinder his ability to carry out his normal ADLs. Impairments are contributing to the following functional limitations: AMPAC score. Patient is assessed as a [] Low 15181 [x] Moderate 63554 [] High 92406 complexity based on the following: History: Pt was admitted to the ER via ambulance following a fall at home. He hit his head and c/o back pain. He was referred to PT for a safety evaluation. Decision Making: Moderate (1-2 history, 2-3 exam, evolving, mod-30 mins) Goals: Goals X1 week 1. Supine-Sit (I) 2. Sit-Supine (I) 3. Sit-Stand (I) 4. Stand-Sit (I) 5. Bed-Chair (I) 6. Chair-Bed (I) 7. Gait (I) with front wheeled rolling walker 8. Stairs (I) 9. Independent with home exercise program 10. Balance: pt will present with good dynamic balance with sitting and standing activities with the ability to mainatin balance (I)ly or correct balance if lost Plan of Care/Treatment Plan: 1-2x/day, 7 days/week x 1 week. Plan of care has been reviewed with the WEBFOCUS DEVELOPER providing the service under Physical Therapy direction. Initiate Physical Therapy intervention for strengthening, bed mobility, transfers, gait, stairs, balance training, use of assistive device. DISCHARGE RECOMMENDATIONS: Currently not able to safely perform bed mobility, transfers, ambulation and ADLS. May require either SNF or home health services to help restore to base line function. TREATMENT CODE/TIME: Mod IE([id number]) 9:00-9:30
--- NOTE | 2025-04-26 12:57 | PHA.REVIEW2 ---
Pharmacy Admission Review Admission Clinical Review Admission Pharmacy Review: No Known Allergies Allergy (Unverified 10/03/24 14:01) Resuscitation Status Full Code Height 5 ft 11 in Weight 94.6 kg Pharmacy Admission Review Renal Dosing Renal Dosing: BUN 20 mg/dL (7-18) H 04/26/25 06:15 Creatinine 1.3 mg/dL (0.70-1.30) 04/26/25 06:15 Medications needing adjustments: Reviewed (CrCl 58.5 mL/min) List of meds needing interventions: Current medications are okay Anticoagulation Anticoagulation: Hgb 11.2 g/dL (13.5-17.5) L 04/26/25 06:15 Hct 34.0 % (40.0-50.0) L 04/26/25 06:15 Plt Count 188 10^3/uL (130-400) 04/26/25 06:15 INR 1.0 (0.9-1.1) 04/26/25 06:15 Creatinine 1.3 mg/dL (0.70-1.30) 04/26/25 06:15 DVT Prophylaxis: Reviewed Medications: Enoxaparin (40mg daily) Relevant Labs Relevant Labs: Sodium 136 mmol/L (136-145) 04/26/25 06:15 Potassium 4.1 mmol/L (3.5-5.1) 04/26/25 06:15 Chloride 97 mmol/L (98-107) L 04/26/25 06:15 Electrolytes, C-Reactive P, ESR: Reviewed (WBC 11.88) DM Control DM Control: Glucose 139 mg/dL (74-106) H 04/26/25 06:15 Finger Stick Blood Glucose 128 0626 Finger Stick Blood Glucose 128 0626 DM Control: Reviewed Insulin Dosing, Diabetic Medication: Takes metformin at home, currently holding due to iohexol use. No other medications for diabetes ordered at this time. Cardiac Review Cardiac Review: Troponin I 25 ng/L (<or=76) 04/26/25 07:25 NT-Pro-B Natriuret Pep 658 pg/mL (<300) H 04/26/25 06:15 Blood Pressure 150/79 0731 Blood Pressure 167/91 0600 BP, HR, EF%: Reviewed (HR WNL) QTc Review QTc: Reviewed (442 from 04/26/25) IV to PO Switch IV Medications: Reviewed Home Meds Home Med List reviewed: Reviewed Relevent Home Meds Not ordered & why?: ibuprofen (PRN) and metformin Current Meds Current Medication Order Review: Reviewed
--- NOTE | 2025-04-26 13:00 | PDOC.CMIN ---
Date of service: 04/26/25 Time of Service: 13:00 Care Management Initial Assmt Advance Directives Advance Directives: Do you have an Advance Directive: Y 07/18/24, 10:44 AD On File at [facility]: Y 07/18/24, 10:44 Date Asked 07/11/24 07/18/24, 10:44 AD Date Reviewed 04/26/25 Today, 12:51 COLST On File at [facility] COLST Date Scanned Code Status Resuscitation Status Full Code Care Team Visit Care Team Role Provider Type Guillaume Kline MD Primary Care Provider [facility] STAFF PHYSICIAN InPatient Gómez Demarco Other Providers OTHER Moses Mahoney MD Emergency Provider [facility] STAFF PHYSICIAN Agustín Day Admit Provider [facility] STAFF PHYSICIAN Attending Provider Social Determinants of Health Screening Will the Patient Participate in the Screening?: Declined to provide Do you worry about having a steady place to live?: choose not to answer PFSH All Active Problems (Updated 07/18/24 @ 12:34 by Guillaume Kline MD) Iron deficiency anemia (Acute) Schizophrenia (Chronic) Symptomatic anemia (Acute) Diabetes mellitus (Chronic) work on weight loss keep active A1c Obesity (BMI 30-39.9) (Acute 10/04/17) Medical History (Updated 07/18/24 @ 12:34 by Guillaume Kline MD) Fall Dental caries (12/06/16) Rectus diastasis (12/06/16) Pericarditis 10/15/18; [facility] [place] Impacted cerumen of both ears Diarrhea Pericarditis Depression Anxiety Surgical History No significant past surgical history Family History Mother No problems noted. Father Neoplasm BLADDER Sister Depression Sister No problems noted. Brother Heart disease Asthma Daughter No problems noted. Social History Smoking/Tobacco Use Status: Former Tobacco Use tobacco type: cigarettes Tobacco: How many years used: 4 Second Hand Exposure: Yes Smoking risk assessment performed?: Yes Alcohol Intake: former Drug use: Never Substance use type: does not use Caregiver/Support person: No Household members: none Housing: assisted living facility Communication Needs: Corrective Lenses Do you need help understanding health information?: Rarely Pets and animals: No Sexually active: No Do you think of yourself as: straight/heterosexual Current gender identity: male What is your relationship status?: How often do you talk on the phone with friends or family?: three or more times per week How often do you get together with friends or relatives?: three or more times per week How often do you attend orthodoxy or anabaptist services?: 4 or more times per year Do you belong to any clubs or organized social groups?: no Panel score (0-1 are the most socially isolated patients): 2 What type of physical activity do you participate in: walking Duration: 15-30 minutes/day Frequency: 3-4 times per week Izzy/Spiritism: Latter Day Special izzy needs: No Seatbelt use: always Drive intox or ride w/intox lumber stacker driver: No Do you feel safe at home: Yes Do you feel safe in your relationship?: Yes
--- NOTE | 2025-04-26 14:26 | W.PM.HP.N ---
Date of service: 04/26/25 Time of Service: 14:26 Assessment and Plan Assessment and plan (1) Weakness generalized: Status: Resolved Assessment and plan: Acute worsening of chronic weakness and unstable gait. Evaluation after fall is reassuring, but he unsafe to discharge. He is at risk for polypharmacy, but no change in medications, no knowns substance injestion, no change in renal function. Constipation and slow transit could increase med levels, treat this. In setting of some subacute weight loss and iron deficiency. No malignancy evident on CT, but should have upper/lower endoscopy as outpatient. No signs infection, but monitor. (2) Iron deficiency anemia: Status: Acute Assessment and plan: recently improved on oral supplement. Get iron/tibc and b12 (3) Diabetes mellitus: Status: Chronic Assessment and plan: holding metformin. Continue basal insulin with ISS, repeat A1c. High sugars could cause weight loss and weakness, but urine normal without glucosuria. (4) Schizophrenia: Status: Chronic Assessment and plan: No current pscyhotic symtpoms evident, though his presentation could be a negative symptom presentation. Continue home meds for now. Try to talk with family about recent baseline (5) DVT prophylaxis: Status: Acute Assessment and plan: enoxaparin (6) Discharge planning issues: Status: Acute Assessment and plan: home when cleared by PT, able to take care of himself. History of Present Illness History of Present Illness Chief Complaint: fall, hit head, weak Narrative: 74yo M with history of type 2 DM, anemia, schizophrenia, presented via EMS for a fall. Per EMS he seemed confused. He fell backward and hit the base of his skull. No LOC. Still has pain there and into his neck. He did not have headache prior to the fall. He states he has felt more generally weak and unsteady on his feet for the past couple days. 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 He does not have focal numbess or weakness. He denies recent medication changes, though he is slow to respond. No EtOH or drugs. He hasn't had recent illness like URI, , or GI sympotms. No rash or joint pain. His last BM was 3 days ago. He does not feel vertigo or lightheaded when standing, no chest pain, SOB, or palpitations. No mood changes. He has had several months of iron deficiency anemia. He has not had EGD/colonoscopy, and this is improving on oral iron. He was evaluated in the ED with reassuring CT head through pelvis, but failed PT evaluatoin, felt not safe to discharge. Review of Systems All systems reviewed & are unremarkable except as noted in HPI and below PFSH All Active Problems (Updated 04/26/25 @ 14:56 by Agustín Day) Discharge planning issues (Acute) DVT prophylaxis (Acute) Iron deficiency anemia (Acute) Symptomatic anemia (Acute) Schizophrenia (Chronic) Diabetes mellitus (Chronic) work on weight loss keep active A1c Obesity (BMI 30-39.9) (Acute 10/04/17) Medical History Fall Diarrhea Impacted cerumen of both ears [place]icard[place]15[place]18[place] [facility] [place] Depression Anxiety Rectus diastasis (12/06/16) Dental caries (12/06/16) Surgical History No significant past surgical history Family History Mother No problems noted. Father Neoplasm BLADDER Sister Depression Sister No problems noted. Brother Heart disease Asthma Daughter No problems noted. Social History Smoking/Tobacco Use Status: Former Tobacco Use tobacco type: cigarettes Tobacco: How many years used: 4 Second Hand Exposure: Yes Smoking risk assessment performed?: Yes Alcohol Intake: former Drug use: Never Substance use type: does not use Caregiver/Support person: No Household members: none Housing: apartment Communication Needs: Corrective Lenses Do you need help understanding health information?: Rarely Pets and animals: No Sexually active: No Do you think of yourself as: straight/heterosexual Current gender identity: male What is your relationship status?: How often do you talk on the phone with friends or family?: three or more times per week How often do you get together with friends or relatives?: three or more times per week How often do you attend gnosticism or mandaen services?: 4 or more times per year Do you belong to any clubs or organized social groups?: no Panel score (0-1 are the most socially isolated patients): 2 What type of physical activity do you participate in: walking Duration: 15-30 minutes/day Frequency: 3-4 times per week Izzy/Yazidism: Scientologist Special izzy needs: No Seatbelt use: always Drive intox or ride w/intox stake driver: No Do you feel safe at home: Yes Do you feel safe in your relationship?: Yes Meds Allergies and Home Medications Allergies Allergy/AdvReac Type Severity Reaction Status Date / Time No Known Allergies Allergy Unverified 10/03/24 14:01 Home Medications ?Medication ?Instructions ?Recorded ?Confirmed ?Type ibuprofen 600 mg tablet 600 mg PO Q8H PRN 10/17/18 04/26/25 History Held on 07/07/24. Instructions: Resume on 07/23/24. Discuss resumption with primary care practitioner after anemia work-up results, please metformin 1,000 mg tablet 1,000 mg PO BID #180 tab-caps 06/25/24 04/26/25 Rx acetaminophen 325 mg capsule 650 mg (2 x 325 mg) PO Q6H PRN PRN 07/07/24 04/26/25 Rx #60 caps duloxetine 60 mg capsule,delayed 60 mg PO DAILY #90 caps 07/15/24 04/26/25 Rx release (Cymbalta) ferrous sulfate 325 mg (65 mg 325 mg PO DAILY #90 tabs 07/18/24 04/26/25 Rx iron) tablet (FeroSul) aripiprazole 30 mg tablet (Abilify) 30 mg PO DAILY #90 tabs 09/09/24 04/26/25 Rx benztropine 0.5 mg tablet 0.5 mg PO BID #180 tabs 10/07/24 04/26/25 Rx quetiapine 200 mg tablet,extended 200 mg PO QHS #90 tabs 10/07/24 04/26/25 Rx release 24 hr atorvastatin 10 mg tablet 10 mg PO QPM #90 tabs 01/09/25 04/26/25 Rx clonazepam 0.5 mg tablet 0.5 mg PO BID #60 tabs 02/10/25 04/26/25 Rx loratadine 10 mg tablet 10 mg PO DAILY #30 tabs 04/24/25 04/26/25 Rx Exam Narrative Exam Narrative: GEN: Somnolent, lying in bed with eyes closed and mount open, facies mask-like. He is pleasant and cooperative, answers direct questions but gives vague history. No acute distress at rest. HEENT: Head atraumatic other than tenderness without lesion over nuchum and into neck. Conjunctiva clear, no icterus. Eyes droopy bilaterally, but PEERL, EOMI. no rhinorrhea. MMM, OP benign. Neck is supple with no masses or lymphadenopathy, trachea midline, though he has pain in nuchum with flexion. LUNGS: CTAB with normal effort CV: RRR with 2/6 systolic murmur loudest at apex, no gallops or rubs. ABD: active bowel sounds, soft, nontender and nondistended. No masses. EXT: no cyanosis, clubbing. trace jackie edema to shins MSK: No joint redness or swelling NEURO: CN 2-12 grossly intact. Movement slow but strength and DTRs symmetric in UE/LE. Speech slow but intelligible. Normal coordination. Jackie hand and sometimes leg tremor, worse at rest SKIN: No rashes or open wounds. PSYCH: normal mood and affect Results Imaging Abdomen CT scan report/results: report reviewed CT scan - chest: report reviewed CT scan - pelvis: report reviewed EKG: report reviewed Imaging Studies: CT C/A/P and Thor/Lumb spine: No acute abnormality in the chest, abdomen or pelvis. Degenerative changes are present in the thoracic and lumbar spine. There is no evidence of fracture. CT head, cervical spine: Head CT: No acute abnormality. C-spine CT: Severe degenerative changes, no acute abnormality. Labs 04/26/25 06:15 04/26/25 06:15 Labs: Laboratory Results - last 24 hr 04/26/25 04/26/25 04/26/25 06:15 06:15 06:20 WBC 11.88 H RBC 3.95 L Hgb 11.2 L Hct 34.0 L MCV 86 MCH 28.4 MCHC 32.9 RDW 13.3 Plt Count 188 MPV 8.8 Immature Gran % 0.2 Neutrophils % 71.7 Lymphocytes % 15.9 Monocytes % 10.5 Eosinophils % 1.4 Basophils % 0.3 Nucleated RBC % 0.0 Absolute Neutrophils 8.52 H Absolute Lymphocytes 1.89 Absolute Monocytes 1.25 H Absolute Eosinophils 0.17 Absolute Basophils 0.04 PT 10.5 INR 1.0 APTT 23.9 VBG pH 7.39 VBG pCO2 51 VBG pO2 20 VBG HCO3 30 H VBG Total CO2 28 VBG O2 Saturation 32 VBG Base Excess 5 H Sodium 136 Potassium 4.1 Chloride 97 L Carbon Dioxide 30.6 Anion Gap 8.4 BUN 20 H Creatinine 1.3 Est GFR (CKD-EPI 2020) 57.65 Glucose 139 H Calcium 9.1 Total Bilirubin 0.9 AST 36 ALT 27 Alkaline Phosphatase 82 Ammonia < 10 L Troponin I 22 Cancelled NT-Pro-B Natriuret Pep 658 H Total Protein 8.1 Albumin 3.7 Lipase 11 TSH 2.85 Urine Color Urine Clarity Urine pH Ur Specific [place] Urine Protein Urine Ketones Urine Blood Urine Nitrite Urine Bilirubin Urine Urobilinogen Ur Leukocyte Esterase Urine Glucose Ethyl Alcohol < 3.0 04/26/25 04/26/25 07:25 07:50 WBC RBC Hgb Hct MCV MCH MCHC RDW Plt Count MPV Immature Gran % Neutrophils % Lymphocytes % Monocytes % Eosinophils % Basophils % Nucleated RBC % Absolute Neutrophils Absolute Lymphocytes Absolute Monocytes Absolute Eosinophils Absolute Basophils PT INR APTT VBG pH VBG pCO2 VBG pO2 VBG HCO3 VBG Total CO2 VBG O2 Saturation VBG Base Excess Sodium Potassium Chloride Carbon Dioxide Anion Gap BUN Creatinine Est GFR (CKD-EPI 2020) Glucose Calcium Total Bilirubin AST ALT Alkaline Phosphatase Ammonia Troponin I 25 NT-Pro-B Natriuret Pep Total Protein Albumin Lipase TSH Urine Color Yellow Urine Clarity Clear Urine pH 5.5 Ur Specific [place] 1.010 Urine Protein Negative Urine Ketones Negative Urine Blood Negative Urine Nitrite Negative Urine Bilirubin Negative Urine Urobilinogen 0.2 Ur Leukocyte Esterase Negative Urine Glucose Negative Ethyl Alcohol Last Vital Signs Temp 36.3 C L 04/26/25 13:07 Pulse 93 H 04/26/25 13:07 Resp 15 04/26/25 13:07 BP 156/89 H 04/26/25 13:07 Pulse Ox 96 04/26/25 13:07 Time Spent Time spent with Patient: 55-74 minutes Time was spent: preparing to see the patient(eg.review tests), obtaining and/or reviewing separately otained hiistory, ordering medications,tests, procedures, referring, communicating with other health rn progressive care, indepentently interpreting results, counseling the patient and care coordination
[2025-04-26] MEDS: Polyethylene Glycol 3350 17 GM PACKET PO (15:15)
--- NOTE | 2025-04-26 15:30 | W.PC.ACHO ---
Registration Status: ADM BRAYDEN Primary Language: Preferred Language: Belarusian ED Information & Data Chief Complaint Trauma 04/26/25 07:22 Triage Note Pt BIBA with complaints of R 04/26/25 06:00 hip and back pain after sustaining a fall. Unknown height or mechanism of fall, poor historian. Pt had positive head strike, no LOC , no blood thinners. Pt confused during triage, unknown baseline. Medical / Surgical History (Last Reviewed 04/26/25 @ 14:48 by Agustín Day) Fall Dental caries (12/06/16) Rectus diastasis (12/06/16) Pericarditis Impacted cerumen of both ears Diarrhea Pericarditis Depression Anxiety (Last Reviewed 04/26/25 @ 14:48 by Agustín Day) No significant past surgical history Most Recent Vital Signs Temperature 36.3 C L 04/26/25 13:07 Temperature Source Tympanic 04/26/25 06:00 Pulse 93 H 04/26/25 13:07 Pulse Rhythm Regular 04/26/25 13:07 Pulse 102 H 04/26/25 07:31 Respiratory Rate 15 04/26/25 13:07 Respiratory Effort Normal, Non-Labored 04/26/25 13:07 Respiratory Depth Normal 04/26/25 13:07 Respiratory Pattern Normal 04/26/25 13:07 Blood Pressure 156/89 H 04/26/25 13:07 Blood Pressure Mean 102 04/26/25 07:31 Blood Pressure Position Supine 04/26/25 06:00 Pulse Oximetry 96 04/26/25 13:07 Oxygen Delivery Method Room Air 04/26/25 13:07 Oxygen Flow Rate 0 04/26/25 13:07 Pain Level 5 04/26/25 06:00 Allergies No Known Allergies Allergy (Unverified 10/03/24 14:01) Precautions Isolation Standard precaution 04/26/25 06:50 Active Medications Generic Name Dose Route Start Last Admin Trade Name Freq PRN Reason Stop Dose Admin Sodium Chloride 0 ml 04/26/25 06:46 04/26/25 06:48 Normal Saline Flush 10 Ml Syr IVP 10 ml PRN PRN Administration IV IV Catheter Type [Left Saline Lock Antecubital] IV Catheter Gauge [Left 18 Antecubital] Diet Orders Category Date Time Status DIET [Diabetes Consistent CHO] [DIET] Nutrition 04/26/25 Lunch Active Diagnostics 04/26/25 04/26/25 04/26/25 Range/Units 07:50 07:25 06:20 WBC (4.4-10.8) 10^3/uL RBC (4.36-5.78) 10^6/uL Hgb (13.5-17.5) g/dL Hct (40.0-50.0) % MCV (80-95) fL MCH (27.0-33.0) pg MCHC (32.0-36.0) % RDW (11.8-14.1) % Plt Count (130-400) 10^3/uL MPV (8.0-11.0) fL Immature Gran % % Neutrophils % % Lymphocytes % % Monocytes % % Eosinophils % % Basophils % % Nucleated RBC % (0.0-0.3) % Absolute Neutrophils (1.2-6.7) 10^3/uL Absolute Lymphocytes (1.2-3.4) 10^3/uL Absolute Monocytes (0.1-0.8) 10^3/uL Absolute Eosinophils (0.0-0.7) 10^3/uL Absolute Basophils (0.0-0.2) 10^3/uL PT (9.1-11.1) sec INR (0.9-1.1) APTT (20.6-30.2) sec VBG pH (7.31-7.41) VBG pCO2 (41-51) mmHg VBG pO2 mmHg VBG HCO3 (23-28) mmol/L VBG Total CO2 (24-29) mmol/L VBG O2 Saturation % VBG Base Excess (-2-3) mmol/L Sodium (136-145) mmol/L Potassium (3.5-5.1) mmol/L Chloride (98-107) mmol/L Carbon Dioxide (21.0-32.0) mmol/L Anion Gap (3-11) mmol/L BUN (7-18) mg/dL Creatinine (0.70-1.30) mg/dL Est GFR (CKD-EPI 2020) (mL/min/1.73m2) Glucose (74-106) mg/dL Calcium (8.5-10.1) mg/dL Total Bilirubin (0.2-1.0) mg/dL AST (15-37) U/L ALT (16-63) U/L Alkaline Phosphatase (46-116) U/L Ammonia < 10 L (11-32) umol/L Troponin I 25 (<or=76) ng/L NT-Pro-B Natriuret Pep (<300) pg/mL Total Protein (6.4-8.2) g/dL Albumin (3.4-5.0) g/dL Lipase (<78) U/L TSH (0.36-3.74) uIU/mL Urine Color Yellow (Yellow) Urine Clarity Clear (Clear) Urine pH 5.5 (5-8) Ur Specific [place] 1.010 (1.005-1.025) Urine Protein Negative (Neg-Trace) mg/dL Urine Ketones Negative (Negative) mg/dL Urine Blood Negative (Negative) Urine Nitrite Negative (Negative) Urine Bilirubin Negative (Negative) Urine Urobilinogen 0.2 (Up to 0.2) mg/dL Ur Leukocyte Esterase Negative (Negative) Urine Glucose Negative (Negative) mg/dL Ethyl Alcohol (<10) mg/dL 04/26/25 04/26/25 Range/Units 06:15 06:15 WBC 11.88 H (4.4-10.8) 10^3/uL RBC 3.95 L (4.36-5.78) 10^6/uL Hgb 11.2 L (13.5-17.5) g/dL Hct 34.0 L (40.0-50.0) % MCV 86 (80-95) fL MCH 28.4 (27.0-33.0) pg MCHC 32.9 (32.0-36.0) % RDW 13.3 (11.8-14.1) % Plt Count 188 (130-400) 10^3/uL MPV 8.8 (8.0-11.0) fL Immature Gran % 0.2 % Neutrophils % 71.7 % Lymphocytes % 15.9 % Monocytes % 10.5 % Eosinophils % 1.4 % Basophils % 0.3 % Nucleated RBC % 0.0 (0.0-0.3) % Absolute Neutrophils 8.52 H (1.2-6.7) 10^3/uL Absolute Lymphocytes 1.89 (1.2-3.4) 10^3/uL Absolute Monocytes 1.25 H (0.1-0.8) 10^3/uL Absolute Eosinophils 0.17 (0.0-0.7) 10^3/uL Absolute Basophils 0.04 (0.0-0.2) 10^3/uL PT 10.5 (9.1-11.1) sec INR 1.0 (0.9-1.1) APTT 23.9 (20.6-30.2) sec VBG pH 7.39 (7.31-7.41) VBG pCO2 51 (41-51) mmHg VBG pO2 20 mmHg VBG HCO3 30 H (23-28) mmol/L VBG Total CO2 28 (24-29) mmol/L VBG O2 Saturation 32 % VBG Base Excess 5 H (-2-3) mmol/L Sodium 136 (136-145) mmol/L Potassium 4.1 (3.5-5.1) mmol/L Chloride 97 L (98-107) mmol/L Carbon Dioxide 30.6 (21.0-32.0) mmol/L Anion Gap 8.4 (3-11) mmol/L BUN 20 H (7-18) mg/dL Creatinine 1.3 (0.70-1.30) mg/dL Est GFR (CKD-EPI 2020) 57.65 (mL/min/1.73m2) Glucose 139 H (74-106) mg/dL Calcium 9.1 (8.5-10.1) mg/dL Total Bilirubin 0.9 (0.2-1.0) mg/dL AST 36 (15-37) U/L ALT 27 (16-63) U/L Alkaline Phosphatase 82 (46-116) U/L Ammonia (11-32) umol/L Troponin I Cancelled 22 (<or=76) ng/L NT-Pro-B Natriuret Pep 658 H (<300) pg/mL Total Protein 8.1 (6.4-8.2) g/dL Albumin 3.7 (3.4-5.0) g/dL Lipase 11 (<78) U/L TSH 2.85 (0.36-3.74) uIU/mL Urine Color (Yellow) Urine Clarity (Clear) Urine pH (5-8) Ur Specific [place] (1.005-1.025) Urine Protein (Neg-Trace) mg/dL Urine Ketones (Negative) mg/dL Urine Blood (Negative) Urine Nitrite (Negative) Urine Bilirubin (Negative) Urine Urobilinogen (Up to 0.2) mg/dL Ur Leukocyte Esterase (Negative) Urine Glucose (Negative) mg/dL Ethyl Alcohol < 3.0 (<10) mg/dL [id number] Documentation Fingerstick Glucose Start: 04/26/25 06:13 Freq: .Stat Status: Active Protocol: Activity Type Activity Date Activity User E-sign Co-sign Detail Recorded Client Recorded Date Recorded By Document 04/26/25 06:26 BKG DAEMON(3) [id number] 04/26/25 06:26 BKG DAEMON(4) Intake and Output - 24 Hour Total 04/26/25 05:56 thru 04/26/25 13:07 Intake Total 100 Balance 100 Weight 94.6 kg Intake: IV 100 Other: Urine Color Yellow Urine Appearance Clear Urine Odor Normal Comment unknown void amount into brief, large Falls Risk Assessment History of Falls Admit Due to Fall 04/26/25 13:07 Contributing Factors Confusion,Impairments, 04/26/25 13:07 Incontinence Ambulatory Aids Uses ambulatory device 04/26/25 13:07 Tubes/Lines None 04/26/25 13:07 Gait Evaluation W/any additional score 04/26/25 13:07 Cognition Cognitive impairment 04/26/25 13:07 Fall Total Score 84 04/26/25 13:07 Level of Risk Maximum Risk 04/26/25 13:07 Problems (Last Reviewed 04/26/25 @ 14:48 by Agustín Day) Discharge planning issues (Acute) DVT prophylaxis (Acute) Iron deficiency anemia (Acute) Schizophrenia (Chronic) Diabetes mellitus (Chronic) v v v v v v v v v Sending and/or Receiving Nurses: Please use comment section below to note any information pertinent to the patient hand-off not included above. Information / Comments: Report called at 12:41. Pt unsteady on stand and pivot from stretcher to bed. Side rails and one upper rail up. Pt demonstrates understanding of call light, fall precautions, reports falling repeatidly at home. Report received from: Rossana Mendez ED RN
[2025-04-26] MEDS: Acetaminophen 325 MG TAB 650 MG PO (20:05)
[2025-04-26] MEDS: Benztropine 1 MG TAB 0.5 MG PO (20:06)
[2025-04-26] MEDS: Atorvastatin 10 MG TAB PO (20:06)
[2025-04-26] MEDS: clonazePAM 0.5 MG TAB PO (20:06)
[2025-04-27 06:13] LABS: HCT 33.7 % (40.0-50.0); HGB 11.1 g/dL (13.5-17.5)
[2025-04-27 06:25] LABS: Anion Gap 6.7 mmol/L (3-11); BUN 19 mg/dL (7-18); CO2 31.3 mmol/L (21.0-32.0); Calcium 8.9 mg/dL (8.5-10.1); Chloride 100 mmol/L (98-107); Estimated GFR 63.46 (mL/min/1.73m2); Glucose 105 mg/dL (74-106); Potassium 3.9 mmol/L (3.5-5.1); Sodium 138 mmol/L (136-145)
[2025-04-27 06:31] LABS: Hemoglobin A1C 6.0 % (<5.7)
[2025-04-27 06:32] LABS: Iron 17 ug/dL (65-175); Total Iron Binding Capacity 213 ug/dL (250-450); Transferrin Sat 8 % (20-55)
[2025-04-27 06:55] LABS: Vitamin B12 149 pg/mL (193-986)
[2025-04-27 07:03] VITALS: BP 140/82; PULSE 90; RESP 16; TEMP 36.3; O2SAT 94
[2025-04-27] MEDS: DULoxetine 30 MG CAP 60 MG PO (08:03)
[2025-04-27] MEDS: Ferrous Sulfate 325 MG TAB PO (08:03)
[2025-04-27] MEDS: Benztropine 1 MG TAB 0.5 MG PO (08:03)
[2025-04-27] MEDS: Enoxaparin 40 MG/0.4 ML SYR SC (08:03)
[2025-04-27] MEDS: ARIPiprazole 15 MG TAB 30 MG PO (08:03)
[2025-04-27] MEDS: Loratidine 10 MG TAB PO (08:03)
[2025-04-27] MEDS: clonazePAM 0.5 MG TAB PO (08:03)
[2025-04-27] MEDS: Insulin Aspart 300 UNITS/3 ML PEN SC (12:15)
--- NOTE | 2025-04-27 12:34 | PT.INTREAT ---
PT Notes Visit Reasons: Fall, Confusion, Ataxia Inpatient Physical Therapy Treatment Note [facility] Date: 04/27/25 PRECAUTIONS:Fall precautions SUBJECTIVE: Pt reports that he feels better today. He reports that he usually walks with a walker at home, sometimes a cane. His head and back are still sore which he states is from the fall. Also reported right shoulder pain which he says is from the fall as well. 2nd session: Pt reports that he is feeling better now that he ate lunch. OBJECTIVE: ? PAIN: Head, back, right shoulder VITALS: Monitored by nursing ? Therapeutic Activities (46086o[2]): Direct one-on-one instruction in dynamic activities to improve functional performance. ?? Pt was sitting in chair. ? BED MOBILITY/TRANSFERS? 12:15-12:30? Sit-stand: CG of 1 with verbal cues to push up from chair ? Stand-sit: SBA of 1 ? Gait: Pt ambulated 100 ft with CG of 1 and front wheeled rolling walker. No instructions required for safe use of assistive device. Balance: Pt was able to maintain static and dynamic standing balance with out loss of balance or trunk sway. He was able to stand and reach without UE support to allow for ADLs. BED MOBILITY/TRANSFERS? 14:00-14:15? Sit-stand: SBA of 1 Stand-sit: SBA of 1 ? Gait: Pt ambulated 100 ft with SBA and front wheeled rolling walker. No instructions required for safe use of assistive device. ASSESSMENT: Pt's gait and balance have improved since yesterday. He also was more alert and able to follow directions without continual cueing. PLAN: TREATMENT CODE/TIME: Therapeutic Activities (10546l[2]) 12:15-12:30 and 14:00-14:15 DISCHARGE RECOMMENDATION: Home with HHPT to help return to baseline status.
--- NOTE | 2025-04-27 13:02 | PDOC.CMDIS ---
Date of service: 04/27/25 Time of Service: 13:37 LACE Index Scoring Tool Questions: Length of Stay (in days): 1 Was the patient admitted via the E.D.?: Yes Comorbidities: Diabetes w/o Complication E.D. Visits: 1 Answers: Total Score: 6 Risk of Readmission: Low Risk Care Management Discharge Plan Reason for Hospitalization: Fall, confusion Discharge Plan: Kirt is discharged home via private vehicle with family. He will follow up with community providers and continue per his discharge plan of care. Referral was sent for New [facility] PT. Patient/Family Education Needs: Review discharge instructions and plan for outpatient follow up. Discuss ask me three. Services Needed at Discharge: Home Health Care Services (New PT, CM notified [facility])
--- NOTE | 2025-04-27 13:35 | PDOC.HHF2F_ITS ---
Date of service: 04/27/25 Time of Service: 13:35 Home Health Referral Home Health Orders Clinical synopsis of why skilled professionals are needed: Diabetes, schizophrenia, generalized weakness Physical Therapist: Check all that apply Increase strength & endurance for safe mobility at home: Ordered To design/establish home maintenance program: Ordered Fall reduction therapy program for patient with history of frequent falls: Ordered Home safety evaluation and teaching/gait training including stair management (if applicable): Ordered Home Bound Status Requires the aid of supportive device (check all that apply): Walker Encounter Date and Reason: I certify that a FTF encounter for this patient was performed on April 27, 2025 and that such encounter was related to the primary reason the patient requires home health services. The encounter was conducted in the following manner: * By me as the certifying physician, GENERAL ASSISTANT, PA or * By an inpatient physician, GENERAL ASSISTANT or PA during an inpatient stay who communicated findings to me, Certification And Authentication I certify that I composed the above information based on my clinical judgment relating to this patient's medical condition and, if applicable, clinical findings communicated to me by the NPP or inpatient physician who performed the FTF encounter. Name of Provider that will be monitoring home health services: Guillaume Kline
--- NOTE | 2025-04-27 13:36 | W.PM.DS.N ---
Date of service: 04/27/25 Time of Service: 13:36 DS: Diagnosis Discharge Diagnosis (1) Weakness generalized: Status: Resolved (2) Iron deficiency anemia: Status: Acute (3) Diabetes mellitus: Status: Chronic (4) Schizophrenia: Status: Chronic (5) DVT prophylaxis: Status: Acute (6) Discharge planning issues: Status: Acute Discharge Plan Disposition Patient Disposition: Home W/Home Health Services Condition: Good Discharge Details Reason For Visit: Fall, Confusion, Ataxia Admit Date/Time: 04/26/25 11:26 Admit Provider: Agustín Day Attending Provider: Agustín Day Primary Care Provider: Guillaume Kline Hospital Course Hospital Course: Patient initially presented with concerns for acute on chronic weakness. However, no medical cause was found but patient was admitted under observation as he was unable to ambulate on his own. Patient worked with physical therapy and must have improved overnight as it was determined that he was able to ambulate on his own and recommended home health physical therapy services. At which time it is determined that the patient was stable for discharge home with home health services. Home Meds and New Rx's Prescriptions: Continued atorvastatin 10 mg tablet 10 mg PO QPM Qty: 90 3RF ferrous sulfate [FeroSul] 325 mg (65 mg iron) tablet 325 mg PO DAILY Qty: 90 3RF ibuprofen 600 mg tablet 600 mg PO Q8H PRN metformin 1,000 mg tablet 1,000 mg PO BID Qty: 180 3RF duloxetine [Cymbalta] 60 mg capsule,delayed release(DR/EC) 60 mg PO DAILY Qty: 90 3RF aripiprazole [Abilify] 30 mg tablet 30 mg PO DAILY Qty: 90 3RF quetiapine 200 mg tablet extended release 24 hr 200 mg PO QHS Qty: 90 3RF benztropine 0.5 mg tablet 0.5 mg PO BID Qty: 180 3RF clonazepam 0.5 mg tablet 0.5 mg PO BID Qty: 60 2RF loratadine 10 mg tablet 10 mg PO DAILY Qty: 30 2RF acetaminophen 325 mg capsule 650 mg PO Q6H PRN PRNQty: 60 0RF Discharge Instructions Activity:: Activity as Tolerated Equipment/Supplies:: No Equipment Needed Diet:: As Tolerated Discharge Orders Discharge Orders: Discharge Order (Routine); Ordered 04/27/25 Ordered By: Barry Vyas DS: Summary Time Spent with Patient providing and/or coordinating discharge services: Greater than 30 minutes Status at Discharge Functional status at discharge: independent ambulation Overall status at discharge: patient is back to baseline Mental Status: mental status grossly normal Speech and Movement: speech and movement normal Mood: congruent mood Affect: normal affect Exam Narrative Exam Narrative: Well-appearing gentleman sitting up in the chair no acute distress, ANO x 4, heart regular rhythm, lungs good auscultation bilaterally, abdomen soft, nontender, nondistended Psych Mental Status: mental status grossly normal Speech and Movement: speech and movement normal Mood: congruent mood Affect: normal affect DS: Data Vitals/I&O Vitals and I&O: Vital Signs Temperature 97.3 F L 04/27/25 07:03 Temperature Source Temporal Artery Scan 04/27/25 07:03 Pulse 90 04/27/25 07:03 Pulse Rhythm Regular 04/26/25 13:07 Pulse 102 H 04/26/25 07:31 Respiratory Rate 16 04/27/25 07:03 Respiratory Effort Normal, Non-Labored 04/26/25 13:07 Respiratory Depth Normal 04/26/25 13:07 Respiratory Pattern Normal 04/26/25 13:07 Blood Pressure 140/82 04/27/25 07:03 Blood Pressure Mean 101 04/27/25 07:03 Blood Pressure Position Supine 04/26/25 06:00 Pulse Oximetry 94 04/27/25 07:03 Oxygen Delivery Method Room Air 04/27/25 07:03 Oxygen Flow Rate 0 04/27/25 07:03 Pain Level 5 04/26/25 20:05 Intake & Output 04/26/25 04/27/25 04/27/25 17:59 05:59 17:59 Intake Total 100 / 100 280 / 280 Output Total 200 / 200 Balance 100 / 100 80 / 80 Weight 208 lb 8.917 oz Intake: IV 100 / 100 Oral 280 / 280 Output: Urine 200 / 200 Other: Urine Color Yellow Light [place] Urine Appearance Clear Clear Urine Odor Normal Strong Comment pt voided on floor and urinal Patient declined to have brief checked this am, states he is okay. pt dry at this time Data Completed and Pending Labs on day of discharge: Labs from last 24 hours 04/27/25 05:25 Hgb 11.1 L Hct 33.7 L Sodium 138 Potassium 3.9 Chloride 100 Carbon Dioxide 31.3 Anion Gap 6.7 BUN 19 H Creatinine 1.2 Est GFR (CKD-EPI 2020) 63.46 Glucose 105 Hemoglobin A1c 6.0 H Calcium 8.9 Iron 17 L TIBC 213 L Transferrin % Sat 8 L Vitamin B12 149 L PFSH All Active Problems (Updated 04/26/25 @ 14:56 by Agustín Day) Discharge planning issues (Acute) DVT prophylaxis (Acute) Iron deficiency anemia (Acute) Schizophrenia (Chronic) Symptomatic anemia (Acute) Diabetes mellitus (Chronic) work on weight loss keep active A1c Obesity (BMI 30-39.9) (Acute 10/04/17) Medical History Fall Diarrhea Impacted cerumen of both ears Pericarditis 10/15/18; [facility] Pericarditis Depression Anxiety Rectus diastasis (12/06/16) Dental caries (12/06/16) Surgical History No significant past surgical history Family History Mother No problems noted. Father Neoplasm BLADDER Sister Depression Sister No problems noted. Brother Heart disease Asthma Daughter No problems noted. Social History Smoking/Tobacco Use Status: Former Tobacco Use tobacco type: cigarettes Tobacco: How many years used: 4 Second Hand Exposure: Yes Smoking risk assessment performed?: Yes Alcohol Intake: former Drug use: Never Substance use type: does not use Caregiver/Support person: No Household members: none Housing: apartment Communication Needs: Corrective Lenses Do you need help understanding health information?: Rarely Pets and animals: No Sexually active: No Do you think of yourself as: straight/heterosexual Current gender identity: male What is your relationship status?: How often do you talk on the phone with friends or family?: three or more times per week How often do you get together with friends or relatives?: three or more times per week How often do you attend hinduism or muslim services?: 4 or more times per year Do you belong to any clubs or organized social groups?: no Panel score (0-1 are the most socially isolated patients): 2 What type of physical activity do you participate in: walking Duration: 15-30 minutes/day Frequency: 3-4 times per week Izzy/Buddhism: Zoroastrianism Special izzy needs: No Seatbelt use: always Drive intox or ride w/intox racing car driver: No Do you feel safe at home: Yes Do you feel safe in your relationship?: Yes Time Spent with Patient Time Spent with Patient: <45 minutes Time was spent: preparing to see the patient(eg.review tests), obtaining and/or reviewing separately otained hiistory, ordering medications,tests, procedures, referring, communicating with other health respiratory care assistant, indepentently interpreting results, counseling the patient and care coordination
--- NOTE | 2025-05-03 09:17 | NUR.NOTE ---
Access chart to reconcile EKG orders with EKG's in [facility]. Duplicate order cancelled. Nursing Note:
== END 2025-04-27 15:16 | disposition home health service (06) ==
LOC: ER 11:53 → MS 12:51
PROVIDERS: Student in an Organized Health Care Education/Training Program; Admitting Provider Family Medicine; Emergency Provider General Practice; PCP Family Medicine; Responsible Provider Family Medicine; Visit Provider Family Medicine
DX: R53.1 Weakness (principal); D50.9 Iron deficiency anemia, unspecified; R51.9 Headache, unspecified; M54.31 Sciatica, right side; E11.9 Type 2 diabetes mellitus without complications; F20.9 Schizophrenia, unspecified; R26.81 Unsteadiness on feet; Z91.81 History of falling; F41.9 Anxiety disorder, unspecified; F32.A Depression, unspecified; Z79.899 Other long term (current) drug therapy; Z79.84 Long term (current) use of oral hypoglycemic drugs; W19.XXXA Unspecified fall, initial encounter
CPT/HCPCS: 00123; 36415; 36416; 74177; 80048; 80053; 82805; 82962; 83690; 93005; 96374; 96375; 97162; 97530; 99284; J1650; 70450; 71260; 72125; 80320; 81003; 82140; 82607; 83036; 83540; 83550; 83880; 84443; 84484; 85014; 85018; 85025; 85610; 85730; 93010; 99222; 99238; 99285; G0378; J0131; J1815; J2405; J3490

== ENCOUNTER 2025-05-01 04:34 | Emergency (ER) | payer MEDICARE, SELFPAY ==
[2025-05-01] VITALS (40 sets, daily range): BP systolic 116–194; BP diastolic 56–93; PULSE 69–101; RESP 12–21; TEMP 36.6; O2SAT 93–99
--- NOTE | 2025-05-01 04:30 | RT.EKG_ITS ---
APPROVED REPORT Exam: Resting ECG Reason for Exam: fall/cp Patient Location: E HR:89 bpm ECG Measurements Heart Rate 89 AXIS TX 227 P 81 QRSd 92 QRS -49 QT 368 T 4 QTc 448 Conclusion Sinus rhythm...normal P axis, V-rate 60- 99 baseline artifact limits interp no clear ST segment or T wave abnormalities to suggest occlusive CA
--- NOTE | 2025-05-01 04:45 | RT.EKG_ITS ---
APPROVED REPORT Exam: Resting ECG Reason for Exam: dizzy Patient Location: E HR:85 bpm ECG Measurements Heart Rate 85 AXIS LA 195 P 70 QRSd 93 QRS -44 QT 390 T 72 QTc 463 Conclusion Sinus rhythm...normal P axis, V-rate 60- 99 Left anterior fascicular block...axis(240,-40), init forces inf no ST segment or T wave abnormalities to suggest occlusive [place]
[2025-05-01 05:11] LABS: BE (Venous) 6 mmol/L (-2-3); HCO3 (Venous) 31 mmol/L (23-28); O2 Sat (Venous) 49 %; TCO2 (Venous) 29 mmol/L (24-29); pCO2 (Venous) 55 mmHg (41-51); pO2 (Venous) 27 mmHg
[2025-05-01 05:14] LABS: Abs Immature Grans 0.01 10^3/uL (0.0-0.06); HCT 34.0 % (40.0-50.0); HGB 10.7 g/dL (13.5-17.5); Immature Grans % 0.1 %; MCH 27.9 pg (27.0-33.0); MCHC 31.5 % (32.0-36.0); MCV 89 fL (80-95); MPV 8.8 fL (8.0-11.0); Platelet Count 220 10^3/uL (130-400); RBC 3.84 10^6/uL (4.36-5.78); RDW 13.2 % (11.8-14.1); RDW-SD 42.8 fL; WBC 7.29 10^3/uL (4.4-10.8)
[2025-05-01] MEDS: Acetaminophen 500 MG TAB 1000 MG PO (05:15)
[2025-05-01 05:42] LABS: ALT 27 U/L (16-63); AST 28 U/L (15-37); Albumin 3.3 g/dL (3.4-5.0); Alkaline Phosphatase 76 U/L (46-116); Anion Gap 7.5 mmol/L (3-11); BUN 20 mg/dL (7-18); Bilirubin, Total 0.5 mg/dL (0.2-1.0); CO2 31.5 mmol/L (21.0-32.0); Calcium 8.9 mg/dL (8.5-10.1); Chloride 100 mmol/L (98-107); Estimated GFR 57.65 (mL/min/1.73m2); Glucose 120 mg/dL (74-106); Magnesium 1.9 mg/dL (1.8-2.4); Potassium 3.9 mmol/L (3.5-5.1); Sodium 139 mmol/L (136-145); Total Protein 7.8 g/dL (6.4-8.2); Troponin I 15 ng/L (<or=76)
--- NOTE | 2025-05-01 06:11 | W.ED.GENAD ---
Discharge Plan Discharge Details Chief Complaint: Fall/Non TraumaCriteria Clinical Impression: Fall, Hip pain Primary Care Provider: Guillaume Kline ED Provider: Kendra Mendoza Home Meds and New Rx's Prescriptions: No Action atorvastatin 10 mg tablet 10 mg PO QPM Qty: 90 3RF ferrous sulfate [FeroSul] 325 mg (65 mg iron) tablet 325 mg PO DAILY Qty: 90 3RF ibuprofen 600 mg tablet 600 mg PO Q8H PRN metformin 1,000 mg tablet 1,000 mg PO BID Qty: 180 3RF duloxetine [Cymbalta] 60 mg capsule,delayed release(DR/EC) 60 mg PO DAILY Qty: 90 3RF aripiprazole [Abilify] 30 mg tablet 30 mg PO DAILY Qty: 90 3RF quetiapine 200 mg tablet extended release 24 hr 200 mg PO QHS Qty: 90 3RF benztropine 0.5 mg tablet 0.5 mg PO BID Qty: 180 3RF clonazepam 0.5 mg tablet 0.5 mg PO BID Qty: 60 2RF loratadine 10 mg tablet 10 mg PO DAILY Qty: 30 2RF acetaminophen 325 mg capsule 650 mg PO Q6H PRN PRNQty: 60 0RF HPI General Mode of arrival: EMS. Date/Time Provider Initiated Documentation: 05/01/25 04:41. Limitations to Documentation: no limitations. Information obtained by: patient and EMS. HPI Narrative: 74yo M with hx of schizophrenia, anemia, DM, presenting for right hip pain after a fall. Reports that he got out of bed to use the bathroom, felt lightheaded, and then fell landing on his right side. Did not think he struck his head or lost consciousness. Was able to get up and ambulate with his walker after this event. No chest pain, palpitations, or shortness of breath at any point. No vertigo. No headache, neck pain (reported neck discomfort at triage but denies to me during my interview), nummbness, tingling, weakness, or vision changes. Otherwise in his usual state of health with no fevers, chills, rash, nausea, vomiting, dysuria, hemmaturia, LE edema, or other concerns. Related Data Home Medications ?Medication ?Instructions ?Recorded ?Confirmed ibuprofen 600 mg tablet 600 mg PO Q8H PRN 10/17/18 05/01/25 metformin 1,000 mg tablet 1,000 mg PO BID #180 tab-caps 06/25/24 05/01/25 acetaminophen 325 mg capsule 650 mg (2 x 325 mg) PO Q6H PRN PRN 07/07/24 05/01/25 #60 caps duloxetine 60 mg capsule,delayed 60 mg PO DAILY #90 caps 07/15/24 05/01/25 release (Cymbalta) ferrous sulfate 325 mg (65 mg 325 mg PO DAILY #90 tabs 07/18/24 05/01/25 iron) tablet (FeroSul) aripiprazole 30 mg tablet (Abilify) 30 mg PO DAILY #90 tabs 09/09/24 05/01/25 benztropine 0.5 mg tablet 0.5 mg PO BID #180 tabs 10/07/24 05/01/25 quetiapine 200 mg tablet,extended 200 mg PO QHS #90 tabs 10/07/24 05/01/25 release 24 hr atorvastatin 10 mg tablet 10 mg PO QPM #90 tabs 01/09/25 05/01/25 clonazepam 0.5 mg tablet 0.5 mg PO BID #60 tabs 02/10/25 05/01/25 loratadine 10 mg tablet 10 mg PO DAILY #30 tabs 04/24/25 05/01/25 Previous Rx's ?Medication ?Instructions ?Recorded metformin 1,000 mg tablet 1,000 mg PO BID #180 tab-caps 06/25/24 acetaminophen 325 mg capsule 650 mg (2 x 325 mg) PO Q6H PRN PRN 07/07/24 #60 caps duloxetine 60 mg capsule,delayed 60 mg PO DAILY #90 caps 07/15/24 release (Cymbalta) ferrous sulfate 325 mg (65 mg 325 mg PO DAILY #90 tabs 07/18/24 iron) tablet (FeroSul) aripiprazole 30 mg tablet (Abilify) 30 mg PO DAILY #90 tabs 09/09/24 benztropine 0.5 mg tablet 0.5 mg PO BID #180 tabs 10/07/24 quetiapine 200 mg tablet,extended 200 mg PO QHS #90 tabs 10/07/24 release 24 hr atorvastatin 10 mg tablet 10 mg PO QPM #90 tabs 01/09/25 clonazepam 0.5 mg tablet 0.5 mg PO BID #60 tabs 02/10/25 loratadine 10 mg tablet 10 mg PO DAILY #30 tabs 04/24/25 Allergies Allergy/AdvReac Type Severity Reaction Status Date / Time No Known Allergies Allergy Unverified 05/01/25 04:41 General Stated Complaint: Fall/Non TraumaCriteria SOLO: 3 Review of Systems Narrative: see HPI Exam Narrative Exam Narrative: GENERAL: Alert, well appearing, well nourished, in no acute distress. SKIN: Warm and well perfused. HEAD: Atraumatic, normocephalic without edema, discoloration or evidence of trauma. EYES: PERRL. No scleral icterus or conjunctival injection. EARS: No hemotympanum. NOSE: No discharge, tenderness, laxity. No nasal septal hematoma. MOUTH: Moist mucus membranes without blood. NECK: Trachea midline. No discolorations or edema. Full pain free ROM at c-spine. CV: Regular rate and rhythm, Normal s1 and s2. No murmurs, rubs, or gallops. PV: Radial pulses 2+ bilaterally and symmetric. Dorsalis pedis pulses 2+ bilaterally and symmetric. 2+ capillary refill. No extremity edema. CHEST: No abrasions or ecchymosis. Chest symmetric with respirations. No chest wall tenderness. Lungs are clear to auscultation bilaterally. ABDOMEN: No ecchymosis or abrasions. Soft, nondistended, nontender. BACK: No abrasions, skin openings, or ecchymosis. Spine without bony tenderness, no step offs. PELVIC: Pelvis stable, nontender to lateral compression and palpation of symphysis pubis. MSK: No gross deformities. Tolerates full range of motion of extremities without tenderness. PSYCH: Calm, cooperative.? Well groomed.? Mood fine, affect flat.? Speech soft and slightly flat with normal volume, rate, & rythym. Linear and goal directed.? Denies SI/HI/AH/VH. ? Does not appear to be responding to internal stimuli. NEURO: GCS 15.? PERRL.? EOMI.? Fluent speech, no dysarthria. Motor- 5/5 strength symmetric bilateral upper and lower extremities Sensation- ?Intact to light touch and symmetric multiple dermatomes including upper and lower extremities Coordination- No dysmetria on finger to nose Reflexes- 2/4 achilles & patellar, no clonus Gait/station: ?Ambulates steadily independently with walker. CRANIAL NERVES: II: Pupils equal and reactive, III, IV, : EOM intact, no gaze preference or deviation, no nystagmus. V: normal sensation in V1, V2, and V3 segments bilaterally VII: no asymmetry, no nasolabial fold flattening VIII: normal hearing to speech IX, X: normal palatal elevation, no uvular deviation XI: 5/5 head turn and 5/5 shoulder shrug bilaterally XII: midline tongue protrusion Course Vital Signs Vital signs: Vital Signs Temperature 36.6 C 05/01/25 04:34 Pulse 97 H 05/01/25 04:34 Respiratory Rate 18 05/01/25 04:34 Blood Pressure 144/71 H 05/01/25 04:34 Pulse Oximetry 99 05/01/25 04:34 Temperature 36.6 C 05/01/25 04:34 Temperature Source Temporal Artery Scan 05/01/25 04:34 Pulse 85 05/01/25 05:30 Respiratory Rate 18 05/01/25 04:34 Blood Pressure 155/63 H 05/01/25 05:30 Blood Pressure Position Supine 05/01/25 04:34 Pulse Oximetry 99 05/01/25 04:34 Oxygen Delivery Method Room Air 05/01/25 04:34 Oxygen Flow Rate 0 05/01/25 04:34 Pain Level 4 05/01/25 04:41 Lab/Test Results Lab/Test Results: Laboratory Tests Range/Units 05/01/25 04:55 WBC (4.4-10.8) 10^3/uL 7.29 RBC (4.36-5.78) 10^6/uL 3.84 L Hgb (13.5-17.5) g/dL 10.7 L Hct (40.0-50.0) % 34.0 L MCV (80-95) fL 89 MCH (27.0-33.0) pg 27.9 MCHC (32.0-36.0) % 31.5 L RDW (11.8-14.1) % 13.2 Plt Count (130-400) 10^3/uL 220 MPV (8.0-11.0) fL 8.8 Immature Gran % % 0.1 Neutrophils % % 56.3 Lymphocytes % % 28.7 Monocytes % % 9.7 Eosinophils % % 4.7 Basophils % % 0.5 Nucleated RBC % (0.0-0.3) % 0.0 Absolute Neutrophils (1.2-6.7) 10^3/uL 4.10 Absolute Lymphocytes (1.2-3.4) 10^3/uL 2.09 Absolute Monocytes (0.1-0.8) 10^3/uL 0.71 Absolute Eosinophils (0.0-0.7) 10^3/uL 0.34 Absolute Basophils (0.0-0.2) 10^3/uL 0.04 VBG pH (7.31-7.41) 7.36 VBG pCO2 (41-51) mmHg 55 H VBG pO2 mmHg 27 VBG HCO3 (23-28) mmol/L 31 H VBG Total CO2 (24-29) mmol/L 29 VBG O2 Saturation % 49 VBG Base Excess (-2-3) mmol/L 6 H Sodium (136-145) mmol/L 139 Potassium (3.5-5.1) mmol/L 3.9 Chloride (98-107) mmol/L 100 Carbon Dioxide (21.0-32.0) mmol/L 31.5 Anion Gap (3-11) mmol/L 7.5 BUN (7-18) mg/dL 20 H Creatinine (0.70-1.30) mg/dL 1.3 Est GFR (CKD-EPI 2020) (mL/min/1.73m2) 57.65 Glucose (74-106) mg/dL 120 H Calcium (8.5-10.1) mg/dL 8.9 Magnesium (1.8-2.4) mg/dL 1.9 Total Bilirubin (0.2-1.0) mg/dL 0.5 AST (15-37) U/L 28 ALT (16-63) U/L 27 Alkaline Phosphatase (46-116) U/L 76 Troponin I (<or=76) ng/L 15 Total Protein (6.4-8.2) g/dL 7.8 Albumin (3.4-5.0) g/dL 3.3 L Medical Decision Making 74yo M with hx of schizophrenia, anemia, DM, presenting for right hip pain after a fall. Reports that he got out of bed to use the bathroom, felt lightheaded, and then fell landing on his right side. Was able to get up and ambulate with his walker after this event. Otherwise in his usual state of health. Vital signs reassuring on arrival, physical exam with mild right hip tenderness otherwise no signficant traumatic findings. C-spine clinically cleared. Will workup for presyncope; given age will get head CT and plain films of hip despite low suspicion for significant injury. Tylenol for pain while awaiting results of workup. -EKG NSR, appropriate intervals, no ST segment or T wave abnormalities to suggest occlusive DC. -Orthostatic vitals + for orthostatis; will give 1L IVFB and reassess. -Labs reviewed as below, CBC with anemia Hg 10.7 (improved from baseline on [facility] record review), CMP with no actionable abnormalities, Mg normal, VBG with mild chronic respiratory acidosis with metabolic compensation, initial troponin 15 with one hour repeat 17 (would not further pursue ACS/trend troponin). -CT head independently reviewed, no ICH or mass on my view, radiology read pending. -Plain films hip/pelvis independently reviewed; no displaced fracture or dislocation on my view, radiology read pending. Will be signed out to oncoming physican, plan to followup delta troponin, imaging reads, repeat orthostatics, and reassess. If reassuring and symptomatically improved, would anticipate discharge home to close PCP followup. Lab Data Lab results reviewed: Yes I reviewed the patient's lab results. Labs: Laboratory Tests Range/Units 05/01/25 05/01/25 05/01/25 04:55 06:16 08:07 WBC (4.4-10.8) 10^3/uL 7.29 RBC (4.36-5.78) 10^6/uL 3.84 L Hgb (13.5-17.5) g/dL 10.7 L Hct (40.0-50.0) % 34.0 L MCV (80-95) fL 89 MCH (27.0-33.0) pg 27.9 MCHC (32.0-36.0) % 31.5 L RDW (11.8-14.1) % 13.2 Plt Count (130-400) 10^3/uL 220 MPV (8.0-11.0) fL 8.8 Immature Gran % % 0.1 Neutrophils % % 56.3 Lymphocytes % % 28.7 Monocytes % % 9.7 Eosinophils % % 4.7 Basophils % % 0.5 Nucleated RBC % (0.0-0.3) % 0.0 Absolute Neutrophils (1.2-6.7) 10^3/uL 4.10 Absolute Lymphocytes (1.2-3.4) 10^3/uL 2.09 Absolute Monocytes (0.1-0.8) 10^3/uL 0.71 Absolute Eosinophils (0.0-0.7) 10^3/uL 0.34 Absolute Basophils (0.0-0.2) 10^3/uL 0.04 VBG pH (7.31-7.41) 7.36 VBG pCO2 (41-51) mmHg 55 H VBG pO2 mmHg 27 VBG HCO3 (23-28) mmol/L 31 H VBG Total CO2 (24-29) mmol/L 29 VBG O2 Saturation % 49 VBG Base Excess (-2-3) mmol/L 6 H Sodium (136-145) mmol/L 139 Potassium (3.5-5.1) mmol/L 3.9 Chloride (98-107) mmol/L 100 Carbon Dioxide (21.0-32.0) mmol/L 31.5 Anion Gap (3-11) mmol/L 7.5 BUN (7-18) mg/dL 20 H Creatinine (0.70-1.30) mg/dL 1.3 Est GFR (CKD-EPI 2020) (mL/min/1.73m2) 57.65 Glucose (74-106) mg/dL 120 H Calcium (8.5-10.1) mg/dL 8.9 Magnesium (1.8-2.4) mg/dL 1.9 Total Bilirubin (0.2-1.0) mg/dL 0.5 AST (15-37) U/L 28 ALT (16-63) U/L 27 Alkaline Phosphatase (46-116) U/L 76 Troponin I (<or=76) ng/L 15 17 Cancelled Total Protein (6.4-8.2) g/dL 7.8 Albumin (3.4-5.0) g/dL 3.3 L PFSH All Active Problems (Updated 05/01/25 @ 06:47 by Kendra Mendoza MD) Hip pain (Acute) Fall (Acute) Iron deficiency anemia (Acute) Schizophrenia (Chronic) Symptomatic anemia (Acute) Diabetes mellitus (Chronic) work on weight loss keep active A1c Obesity (BMI 30-39.9) (Acute 10/04/17) Medical History Fall Diarrhea Impacted cerumen of both ears Pericarditis 10/15/18; [facility] [place] Pericarditis Depression Anxiety Rectus diastasis (12/06/16) Dental caries (12/06/16) Surgical History No significant past surgical history Family History Mother No problems noted. Father Neoplasm BLADDER Sister Depression Sister No problems noted. Brother Heart disease Asthma Daughter No problems noted. Social History Smoking/Tobacco Use Status: Former Tobacco Use tobacco type: cigarettes Tobacco: How many years used: 4 Second Hand Exposure: Yes Smoking risk assessment performed?: Yes Alcohol Intake: former Drug use: Never Substance use type: does not use Caregiver/Support person: No Household members: none Housing: apartment Communication Needs: Corrective Lenses Do you need help understanding health information?: Rarely Pets and animals: No Sexually active: No Do you think of yourself as: straight/heterosexual Current gender identity: male What is your relationship status?: How often do you talk on the phone with friends or family?: three or more times per week How often do you get together with friends or relatives?: three or more times per week How often do you attend faith or temple services?: 4 or more times per year Do you belong to any clubs or organized social groups?: no Panel score (0-1 are the most socially isolated patients): 2 What type of physical activity do you participate in: walking Duration: 15-30 minutes/day Frequency: 3-4 times per week Izzy/Sabianism: Zoroastrianism Special izzy needs: No Seatbelt use: always Drive intox or ride w/intox local truck driver: No Do you feel safe at home: Yes Do you feel safe in your relationship?: Yes
--- NOTE | 2025-05-01 06:16 | DI.CT_ITS ---
Exam(s) CT HEAD WO EXAM: CT HEAD WO CLINICAL HISTORY: fall. TECHNIQUE: Imaging Protocol: Axial computed tomography images with coronal and sagittal reformatted images were created and reviewed COMPARISON: CT CT HEAD CERVICAL SPINE WO from 07/05/[address] HEAD CERVICAL SPINE WO from 04/26/2025 FINDINGS: Ventricles and Extra axial spaces: Normal in size and morphology for the patient's age. Hemorrhage: None. Cerebral parenchyma: There is no evidence of an acute territorial infarct. There is no acute mass effect. Midline shift: None. Brainstem/Cerebellum: Normal. Calvarium: Normal. Visualized Paranasal sinuses/Mastoids: There is a small mucous retention cyst in the right sphenoid sinus. There is mild mucosal thickening in the right frontal sinus. The remaining visualized paranasal sinuses and mastoid air cells are clear. Soft Tissues: Unremarkable. IMPRESSION: 1. No acute intracranial process. 2. The preliminary [facility] report was reviewed. RADIATION DOSE DELIVERED: 889.33mGy.cm Total DLP DATA REPOSITORY: All CT scans at this facility are submitted to the National Radiology Data Registry (NRDR) Dose Index Registry (DIR) with the [employer] (A[employer]). RADIATION OPTIMIZATION: All CT scans at this facility use at least one of these dose optimization techniques: automated exposure control; mA and/or kV adjustment per patient size (includes targeted exams where dose is matched to clinical indication); or iterative reconstruction.
--- NOTE | 2025-05-01 06:17 | DI.RAD_ITS ---
Exam(s) XR HIP PELVIS ADULT BL EXAM: XR HIP PELVIS ADULT BL CLINICAL HISTORY: fall, right hip pain. TECHNIQUE: 2D digital imaging was performed. Three views. COMPARISON: CT CT CHEST/ABD/PEL W from 04/26/[address] THORACIC LUMBAR SPINE REC from 04/26/2025 FINDINGS: BONES: No acute fracture is present. No bony destructive lesion is seen. JOINTS: No dislocation present. Mild bilateral hip joint space narrowing. Spurring at the superior acetabula bilaterally.. SI joints and pubic symphysis show mild degenerative changes. SOFT TISSUE: Normal. IMPRESSION: Mild degenerative changes. No acute abnormality. The preliminary [facility] report was reviewed. DATA REPOSITORY: RADIATION DOSE DELIVERED:
[2025-05-01] MEDS: Normal Saline 1,000 ML 1000 ML IV (06:34)
[2025-05-01 06:44] LABS: Troponin I 17 ng/L (<or=76)
--- NOTE | 2025-05-01 07:15 | W.EDPROG ---
Date of service: 05/01/25 Time of Service: 07:16 Medical Decision Making I received signout on this 74-year-old male who had fallen. He is pending read of his hip x-ray and CT scan. He has been ambulatory since his fall. If his reads are reassuring he will be discharged. 9:45 AM Patient had reassuring CT head reassuring hip x-ray. Patient passed an ambulatory and p.o. trial. We discussed he should return if he developed any pain shortness of breath nausea or vomiting. He understands return indications was discharged with an empiric trial of excellent outpatient management. Patient ambulates with a walker at home. We ordered him a walker from the emergency department. Discharge Plan Disposition Patient Disposition: Home Discharge Details Clinical Impression: Fall, Hip pain, Orthostasis Primary Care Provider: Guillaume Kline ED Provider: Agustín Ignacio [place] Meds and New Rx's Prescriptions: Continued atorvastatin 10 mg tablet 10 mg PO QPM Qty: 90 3RF ferrous sulfate [FeroSul] 325 mg (65 mg iron) tablet 325 mg PO DAILY Qty: 90 3RF ibuprofen 600 mg tablet 600 mg PO Q8H PRN metformin 1,000 mg tablet 1,000 mg PO BID Qty: 180 3RF duloxetine [Cymbalta] 60 mg capsule,delayed release(DR/EC) 60 mg PO DAILY Qty: 90 3RF aripiprazole [Abilify] 30 mg tablet 30 mg PO DAILY Qty: 90 3RF quetiapine 200 mg tablet extended release 24 hr 200 mg PO QHS Qty: 90 3RF benztropine 0.5 mg tablet 0.5 mg PO BID Qty: 180 3RF clonazepam 0.5 mg tablet 0.5 mg PO BID Qty: 60 2RF loratadine 10 mg tablet 10 mg PO DAILY Qty: 30 2RF acetaminophen 325 mg capsule 650 mg PO Q6H PRN PRNQty: 60 0RF Discharge Instructions Additional Instructions: You are seen emergency department following your fall. Your CAT scan showed no sign of any bleeding in your head. Your x-ray showed no sign of any fractures in your hip. As we discussed develop any worsening pain nausea vomiting that does not stop or if you have any other concerns please return to the emergency department. Otherwise please follow-up as needed primary care provider next week.
--- NOTE | 2025-05-01 07:57 | DI.VRAD_ITS ---
PROCEDURE INFORMATION: Exam: CT Head Without Contrast Exam date and time: 05/01/2025 5:49 AM Age: 74 years old Clinical indication: Injury or trauma; Fall; Blunt trauma (contusions or hematomas); Loss of consciousness unknown; Injury date: 05/01/25 TECHNIQUE: Imaging protocol: Computed tomography of the head without contrast. Radiation optimization: All CT scans at this facility use at least one of these dose optimization techniques: automated exposure control; mA and/or kV adjustment per patient size (includes targeted exams where dose is matched to clinical indication); or iterative reconstruction. COMPARISON: CT HEAD CERVICAL SPINE WO 04/26/2025 6:30 AM FINDINGS: Brain: No intracranial hemorrhage appreciated. No significant focal mass effect or significant midline shift. Generalized parenchymal volume loss. Chronic ischemic changes are noted. Cerebral ventricles: No disproportionate ventriculomegaly. Paranasal sinuses: Mucosal retention cyst versus polyp in the right sphenoid sinus. Mastoid air cells: No mastoid effusion. Bones: No acute cranial vault fracture seen. Soft tissues: No acute findings. Vasculature: Arterial calcifications. IMPRESSION: 1. No intracranial sequelae of trauma appreciated. 2. Nonacute findings as outlined above. Dictated and Authenticated by: Riri Griffin MD. Orderin Kelly Gardner MD
--- NOTE | 2025-05-01 09:10 | DI.VRAD_ITS ---
PROCEDURE INFORMATION: Exam: XR Right Hip Exam date and time: 05/01/2025 6:06 AM Age: 74 years old Clinical indication: Injury or trauma; Blunt trauma (contusions or hematomas); Injury date: 05/01/25; Fall, right hip pain TECHNIQUE: Imaging protocol: Radiologic exam of the right hip. Views: 2 or 3 views hip with pelvis when performed. COMPARISON: CT CHEST/ABD/PEL W 04/26/2025 6:32 AM FINDINGS: Bones/joints: Unremarkable. No acute fracture. Soft tissues: Unremarkable. IMPRESSION: No acute findings. Dictated and Authenticated by: Sheryl Gonzalez MD. Orderin Kelly Gardner MD
== END 2025-05-01 10:56 | disposition home or self-care (01) ==
PROVIDERS: Student in an Organized Health Care Education/Training Program; Emergency Provider Emergency Medicine; PCP Family Medicine
DX: M25.551 Pain in right hip (principal); W19.XXXA Unspecified fall, initial encounter
CPT/HCPCS: 99284; 99285; 36415; 00123; 73521; 80053; 82805; 93005; 96360; 70450; 83735; 84484; 85025; 93010

== ENCOUNTER 2025-05-09 01:15 | Emergency (ER) | payer MEDICARE, SELFPAY ==
[2025-05-09 01:14] VITALS: BP 157/73; PULSE 99; RESP 20; TEMP 36.4; O2SAT 95
--- NOTE | 2025-05-09 01:22 | W.ED.GENAD ---
Discharge Plan Disposition Patient Disposition: Home Condition: Stable Discharge Details Clinical Impression: Schizophrenia Primary Care Provider: Guillaume Kline ED Provider: Asael Espana Home Meds and New Rx's Prescriptions: No Action atorvastatin 10 mg tablet 10 mg PO QPM Qty: 90 3RF ferrous sulfate [FeroSul] 325 mg (65 mg iron) tablet 325 mg PO DAILY Qty: 90 3RF ibuprofen 600 mg tablet 600 mg PO Q8H PRN metformin 1,000 mg tablet 1,000 mg PO BID Qty: 180 3RF duloxetine [Cymbalta] 60 mg capsule,delayed release(DR/EC) 60 mg PO DAILY Qty: 90 3RF aripiprazole [Abilify] 30 mg tablet 30 mg PO DAILY Qty: 90 3RF quetiapine 200 mg tablet extended release 24 hr 200 mg PO QHS Qty: 90 3RF benztropine 0.5 mg tablet 0.5 mg PO BID Qty: 180 3RF loratadine 10 mg tablet 10 mg PO DAILY Qty: 30 2RF clonazepam 0.5 mg tablet 0.5 mg PO BID Qty: 60 2RF acetaminophen 325 mg capsule 650 mg PO Q6H PRN PRNQty: 60 0RF Discharge Instructions Instructions: Schizophrenia (DC) Additional Instructions: The dream you experienced accident has resolved, and did not appear to be having any significant problems related to your underlying behavioral health disease. Continue your current medications as previously directed. The behavioral health crisis service will patient follow-up with you today at 3 PM to see if they can provide any additional help or services for you. You can always return to the ER for any new concerns or sudden changes in your health that you feel require emergency medical attention. HPI General Date/Time Provider Initiated Documentation: 05/09/25 01:22. HPI Narrative: The patient is a 74-year-old male, with a past medical history significant for schizophrenia, depression, anxiety, who presents to the emergency department this evening by ambulance after he woke with a start from a dream in which he was being let out of his house by soldiers. He tells me that he could not tell what was going on was real or not. He contacted EMS for transport to the hospital as he lives alone and was having problems discerning what was reality. The patient is followed by [facility] as has a physical fitness trainer that helps him. The patient denies having any recent illnesses such as coughs, runny nose, sore throat, fevers, chills, nausea, vomiting, or diarrhea. The patient is sleepy but will arouse to voice and hold a conversation. He told EMS that he had not taken his medication for 3 days. Related Data Home Medications Medication Instructions Recorded Confirmed ibuprofen 600 mg tablet 600 mg PO Q8H PRN 10/17/18 05/01/25 metformin 1,000 mg tablet 1,000 mg PO BID #180 tab-caps 06/25/24 05/01/25 acetaminophen 325 mg capsule 650 mg (2 x 325 mg) PO Q6H PRN PRN 07/07/24 05/01/25 #60 caps duloxetine 60 mg capsule,delayed 60 mg PO DAILY #90 caps 07/15/24 05/01/25 release (Cymbalta) ferrous sulfate 325 mg (65 mg 325 mg PO DAILY #90 tabs 07/18/24 05/01/25 iron) tablet (FeroSul) aripiprazole 30 mg tablet (Abilify) 30 mg PO DAILY #90 tabs 09/09/24 05/01/25 benztropine 0.5 mg tablet 0.5 mg PO BID #180 tabs 10/07/24 05/01/25 quetiapine 200 mg tablet,extended 200 mg PO QHS #90 tabs 10/07/24 05/01/25 release 24 hr atorvastatin 10 mg tablet 10 mg PO QPM #90 tabs 01/09/25 05/01/25 loratadine 10 mg tablet 10 mg PO DAILY #30 tabs 04/24/25 05/01/25 clonazepam 0.5 mg tablet 0.5 mg PO BID #60 tabs 05/05/25 Previous Rx's Medication Instructions Recorded metformin 1,000 mg tablet 1,000 mg PO BID #180 tab-caps 06/25/24 acetaminophen 325 mg capsule 650 mg (2 x 325 mg) PO Q6H PRN PRN 07/07/24 #60 caps duloxetine 60 mg capsule,delayed 60 mg PO DAILY #90 caps 07/15/24 release (Cymbalta) ferrous sulfate 325 mg (65 mg 325 mg PO DAILY #90 tabs 07/18/24 iron) tablet (FeroSul) aripiprazole 30 mg tablet (Abilify) 30 mg PO DAILY #90 tabs 09/09/24 benztropine 0.5 mg tablet 0.5 mg PO BID #180 tabs 10/07/24 quetiapine 200 mg tablet,extended 200 mg PO QHS #90 tabs 10/07/24 release 24 hr atorvastatin 10 mg tablet 10 mg PO QPM #90 tabs 01/09/25 loratadine 10 mg tablet 10 mg PO DAILY #30 tabs 04/24/25 clonazepam 0.5 mg tablet 0.5 mg PO BID #60 tabs 05/05/25 Allergies Allergy/AdvReac Type Severity Reaction Status Date / Time No Known Allergies Allergy Unverified 05/01/25 04:41 General SOLO: 3 Exam Const General: cooperative, comfortable, no acute distress and acute distress Other: Somnolent but arousable to voice, answers questions appropriately Resp Effort & Inspection: normal respiratory effort and able to speak in complete sentences Auscultation: clear to auscultation bilaterally Cardio Rate: regular rate Rhythm: regular rhythm and abnormal rhythm Heart Sounds: murmur systolic (3 of 6) GI Inspection: normal to inspection Palpation: soft Auscultation: normal bowel sounds Skin General skin exam: no rashes or lesions noted and turgor normal Neuro General: moves all extremities and normal light touch, pain and propioception Gait: shuffling and wide-based Medical Decision Making The patient was seen and examined. He is somnolent but will arouse and answer questions. He does not appear to have any obvious focal motor deficits or sensory deficits on examination. The patient does not appear in any distress. It is not entirely clear if the patient has been taking his medications regularly or not, but the patient is also on agitated or having any significant alteration of his sensorium from difficulty interpreting his environment. He desired to be frankly psychotic at this time. I will reach out to [facility] and asked them to evaluate the patient for further disposition planning. 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 He slept here in the ER overnight and was discharged home with RTC this morning. PFSH All Active Problems (Updated 05/09/25 @ 01:52 by Asael Espana MD) Orthostasis (Acute) Hip pain (Acute) Fall (Acute) Iron deficiency anemia (Acute) Schizophrenia (Chronic) Symptomatic anemia (Acute) Diabetes mellitus (Chronic) work on weight loss keep active A1c Obesity (BMI 30-39.9) (Acute 10/04/17) Medical History Fall Diarrhea Impacted cerumen of both ears [place] [facility] [place] Depression Anxiety Rectus diastasis (12/06/16) Dental caries (12/06/16) Surgical History No significant past surgical history Family History Mother No problems noted. Father Neoplasm BLADDER Sister Depression Sister No problems noted. Brother Heart disease Asthma Daughter No problems noted. Social History Smoking/Tobacco Use Status: Former Tobacco Use tobacco type: cigarettes Tobacco: How many years used: 4 Second Hand Exposure: Yes Smoking risk assessment performed?: Yes Alcohol Intake: former Drug use: Never Substance use type: does not use Caregiver/Support person: No Household members: none Housing: apartment Communication Needs: Corrective Lenses Do you need help understanding health information?: Rarely Pets and animals: No Sexually active: No Do you think of yourself as: straight/heterosexual Current gender identity: male What is your relationship status?: How often do you talk on the phone with friends or family?: three or more times per week How often do you get together with friends or relatives?: three or more times per week How often do you attend catholic or anabaptism services?: 4 or more times per year Do you belong to any clubs or organized social groups?: no Panel score (0-1 are the most socially isolated patients): 2 What type of physical activity do you participate in: walking Duration: 15-30 minutes/day Frequency: 3-4 times per week Izzy/Protestant: Cheondoism Special izzy needs: No Seatbelt use: always Drive intox or ride w/intox special client bus driver: No Do you feel safe at home: Yes Do you feel safe in your relationship?: Yes
[2025-05-09 02:30] VITALS: BP 153/72; PULSE 88; RESP 18; O2SAT 96
[2025-05-09 03:30] VITALS: BP 147/68; PULSE 80; RESP 16; O2SAT 96
--- NOTE | 2025-05-09 03:51 | PDOC.MHCN_ITS ---
Date of service: 05/09/25 Time of Service: 02:05 PHQ-9 Over the last 2 weeks, how often have you been bothered by any of the following problems? 1. Little interest or pleasure in doing things: more than half the days 2. Feeling down, depressed, or hopeless: several days 3. Trouble falling or staying asleep, or sleeping too much: several days 4. Feeling tired or having little energy: more than half the days 5. Poor appetite or overeating: several days 6. Feeling bad about yourself - or that you are a failure or have let yourself and your family down: several days 7. Trouble concentrating on things, such as reading the newspaper or watching television: not at all 8. Moving or speaking so slowly that other people could have noticed? - Or the opposite - being so fidgety or restless that you have been moving around a lot more than usual: several days 9. Thoughts that you would be better off or of hurting yourself in some way: not at all Total score: 9 If you checked off any problems, how difficult have these problems made it for you to do your work, take care of things at home, or get along with other people?: somewhat difficult Source: Developed by Drs. Greg De Jesus, Araseli Porter, Andrew Tellez and colleagues, with an educational megan from [employer]. Suicide Severity Rate CSSRS Have you wished you were or wished you could go to sleep and not wake up?: No Have you actually had any thoughts of killing yourself?: No CSSRS3 Have you ever done anything, started to do anything or prepared to do anything to end your life?: No Screening Score Total Score: 0 Screening: Negative Mental Health Emergency Note Release [facility] release signed:: No Reason for Visit The client presented to [facility] ED via [place] reporting he has been hearing voices, paranoia and hasn't been taking his medications. The client is known to [facility] in the past per chart review for [facility] psych. The client self reports being hospitalized in the past for his mental health but is unsure of how many times. The client is supported by Dr. Kline at [facility]. In the last 2 weeks has the pt presented for ES prior to today?: No Client Information Client is: New Well Housed: Yes Non Suicidal Self Injury Current: No History: No Safety Risk/Harm to Self or Others Current Ideation to Harm Self or Others: No Risk: Does risk to harm exist?: No Risk: N/A Duty to warn indicated: No Asssessment/Mental Status Appearance: Well groomed Attitude: Cooperative and Friendly Behavior: Unremarkable Speech: Soft Affect: Cogruent with mood Mood: Anxious Thought process: Poverty of content Hallucinations: No Delusions: yes, Persectory/Paranoid Attention: Wandering Perception: Not impaired Orientation: Fully orientated Memory: Intact Insight: Poor Judgement: Poor Neurovegetative Symptoms Sleep: Decrease Appetitie: No change Interests: No change Energy: No change Libido: Not applicable Additional Issues: Assaultive/Threatening Behavior: No Medical Concerns: No Client engaged in active self harm w/weapon: No Threatening to run away: No Child reported abuse/neglect: No Voluntarily presenting for services: Yes Domestic violence is a concern: No Extreme Psychosis or extreme behavior is present: No Impression The client is a 74 year old biological male who resides independently in [place], [place]. The client presents in a well groomed appearance and is seen wearing a long sleeve shirt and romero dress pants. Affect appears to be congruent with mood. Speech is soft. Client is cooperative and friendly with this clinician and described his mood as anxious. Thought process appears to be a poverty of content. The client denies visual and auditory hallucinations. There are paranoid delusions observed by this clinician. Cognitive assessment reveals orientation to person, place and time. The client states he presented to the [facility] ED due to a bad dream of foreign soldiers coming into his room and taking him to either [place] or [facility]. The client states he also came in for back and hip soreness. The client is heard stating he gets some of these thoughts from bad movies and movies are so violent these days. Per collateral report of Patricio in the [facility] ED the client had reported to be off his medications the last few days, and the client reported to be taking all medications as prescribed. This clinician inquired on a history of Alzheimer's and dementia with [facility] ED staff to which was denied. The client denied SI, HI and NSSI with no intent and plans. Plan/Disposition Recommended Disposition: Other (Safety plan). Plan: The client was safety planned home with a in person follow up with emergency services on 05/09/25 at 3pm. Reports/communication Outcome discussed with: ED/Personnel
--- NOTE | 2025-05-09 03:57 | NVRH.SBSAFE ---
Date of service: 05/09/25 Time of Service: 02:05 Augie-Brown Safety Plan Step 1: Warning signs 1.: Hallucinations or bad dreams 2.: I can feel it in my chest 3.: I have anxiety Step 2: Internal Coping Strategies Things I can do to take my mind off my problems without contacting another person: 1.: Watch TV 2.: Listen to music on the radio 3.: Go for a walk Step 3: People and Social Settings People and social settings that provide distraction: 1. Name: Jenny (sister) 2. Name: Aurther (brother) Step 4: Assistance People whom I can ask for help during a crisis: 1. Name: Jenny (sister) 2. Name: Aurther (brother) Step 5: Professionals/Agencies Professionals or agencies I can contact during a crisis: 1. Clinician/Agency Name: [facility] 1. 2. Clinician/Agency Name: Crisis Line 2. Phone: [phone] 3. Local Emergency Department: [address] [place] [address] 4. [facility] ([facility]) Mobile Crisis Suicide Prevention Lifeline Phone: [phone] Step 6: Making the Environment Safer Making the environment safer (plan for lethal means safety): 1.: The client could not identify Augie Ayala Copyright Augie-Brown Safety Planning Intervention The Augie-Brown Safety Plan is copyrighted by Myrna Ghosh, PhD & Neville Ayala, PhD (2020). Individual use of the Augie-Brown Safety Plan form is permitted. Written permission from the authors is required for any changes to this form or use of this form in the electronic medical record. Additional resources are available from www.suicidesafetyplan.com.
[2025-05-09 04:30] VITALS: BP 137/67; PULSE 72; RESP 14; O2SAT 95
[2025-05-09 06:43] VITALS: BP 169/83; PULSE 84; RESP 18; TEMP 37; O2SAT 97
== END 2025-05-09 07:20 | disposition home or self-care (01) ==
PROVIDERS: Emergency Provider Emergency Medicine Emergency Medical Services; PCP Family Medicine
DX: F20.9 Schizophrenia, unspecified (principal)
CPT/HCPCS: 00123; 96127; 99285; 99284

== ENCOUNTER 2025-05-12 10:48 | Observation (INO) | payer MEDICARE, SELFPAY ==
[2025-05-12] VITALS (38 sets, daily range): BP systolic 132–162; BP diastolic 65–86; PULSE 73–97; RESP 9–23; TEMP 36.3–37; O2SAT 70–100
--- NOTE | 2025-05-12 10:45 | DI.CT_ITS ---
Exam(s) CT HEAD WO EXAM: CT HEAD WO CLINICAL HISTORY: Respiratory following. TECHNIQUE: Imaging Protocol: Axial computed tomography images with coronal and sagittal reformatted images were created and reviewed COMPARISON: CT CT HEAD CERVICAL SPINE WO from 07/05/[address] HEAD WO from 05/01/2025 FINDINGS: Ventricles and Extra axial spaces: Normal in size and morphology for the patient's age. Hemorrhage: None. Cerebral parenchyma: There is no evidence of an acute territorial infarct. There is no acute mass effect. Midline shift: None. Brainstem/Cerebellum: Normal. Calvarium: Normal. Visualized Paranasal sinuses/Mastoids: Clear. Soft Tissues: Unremarkable. IMPRESSION: No acute intracranial process. RADIATION DOSE DELIVERED: 914.95mGy.cm Total DLP DATA REPOSITORY: All CT scans at this facility are submitted to the National Radiology Data Registry (NRDR) Dose Index Registry (DIR) with the [employer] (ACR). RADIATION OPTIMIZATION: All CT scans at this facility use at least one of these dose optimization techniques: automated exposure control; mA and/or kV adjustment per patient size (includes targeted exams where dose is matched to clinical indication); or iterative reconstruction.
--- NOTE | 2025-05-12 10:45 | RT.EKG_ITS ---
APPROVED REPORT Exam: Resting ECG Reason for Exam: confusion, weakness Patient Location: E HR:89 bpm ECG Measurements Heart Rate 89 AXIS OK 195 P 74 QRSd 91 QRS -55 QT 347 T 76 QTc 422 Conclusion Sinus rhythm...normal P axis, V-rate 60- 99 Left anterior fascicular block...axis(240,-40), init forces inf Consider anterior infarct...Q >30mS in V2-V5 No Occlusion AL
--- NOTE | 2025-05-12 10:55 | W.ED.GENAD ---
Discharge Plan Disposition Patient Disposition: Admit to [facility] Discharge Details Clinical Impression: Acute kidney injury, Hypomagnesemia, Acute dehydration, Ketonuria Primary Care Provider: Guillaume Kline ED Provider: Agustín Ignacio [place] Meds and New Rx's Prescriptions: No Action atorvastatin 10 mg tablet 10 mg PO QPM Qty: 90 3RF ferrous sulfate [FeroSul] 325 mg (65 mg iron) tablet 325 mg PO DAILY Qty: 90 3RF ibuprofen 600 mg tablet 600 mg PO Q8H PRN metformin 1,000 mg tablet 1,000 mg PO BID Qty: 180 3RF duloxetine [Cymbalta] 60 mg capsule,delayed release(DR/EC) 60 mg PO DAILY Qty: 90 3RF aripiprazole [Abilify] 30 mg tablet 30 mg PO DAILY Qty: 90 3RF quetiapine 200 mg tablet extended release 24 hr 200 mg PO QHS Qty: 90 3RF benztropine 0.5 mg tablet 0.5 mg PO BID Qty: 180 3RF loratadine 10 mg tablet 10 mg PO DAILY Qty: 30 2RF clonazepam 0.5 mg tablet 0.5 mg PO BID Qty: 60 2RF acetaminophen 325 mg capsule 650 mg PO Q6H PRN PRNQty: 60 0RF HPI General Date/Time Provider Initiated Documentation: 05/12/25 10:55. HPI Narrative: MDM This is a chronically ill appearing normothermic and not tachycardic 74-year-old male with incomplete medication dosing at home and fall with reported confusion for patient undergo CT head. No focal neurological deficits to suggest CVA so I did not feel patient required an angiogram of his head. No tonic-clonic activity to suggest seizures and no indication for EEG. No fevers to suggest benefit from lumbar puncture. Given low concern for stroke I did not feel patient required an MRI. He is on a number of antipsychotic medications along with benzodiazepines so it is certainly possible that he could have polypharmacy causing his symptoms of dizziness. He would undergo ECG to assess for any QTc prolongation. Will also obtain basic labs to assess for hyponatremia and hypokalemia. Will obtain chest x-ray to assess for mass and pneumonia. Given equal breath sounds I am not suspicious for pneumothorax. Nonetheless we will obtain chest x-ray given fall. Given patient was down earlier today will obtain CK level to assess for rhabdomyolysis. No palpable cords or shortness of breath to suggest PE so I did not order duplex studies of the patient's lower extremities. No nystagmus I did not apply the hints exam. Dry mucous membranes so we will order 1 L IV fluids. Will obtain x-ray of his right forearm and right hip given tenderness and fall. 12:[address] head with no acute intracranial process. Comprehensive metabolic panel showing marked ALISHA. Patient has already received 1 L of IV fluids. Elevated BUN. New mild hypomagnesemia for which patient will receive oral repletion. Normal reassuring TSH. Reassuring normal troponin. Undetectable ethanol. Low acetaminophen level and undetectable salicylate level. CBC with normocytic anemia worse compared to prior. No leukocytosis. No thrombocytopenia. Mildly elevated CK not consistent with rhabdomyolysis. 1:36 PM Chest x-ray with no acute cardiopulmonary process. Pelvis x-ray with no acute fracture. Negative femur x-ray. Forearm x-ray negative for any acute osseous abnormalities. 2 PM Patient eating and drinking. He is providing urine sample. Given his disorganization with medications at home and his fall with acute kidney injury on electrolytes we will reach out to hospitalist to request hospitalization. 2:57 PM Repeat reassuring troponin. I was in touch with Dr. Day from the hospitalist team who graciously agreed to accept the patient for hospitalization. 3:23 PM I was in touch with the RN from care management who will help to arrange home health nurse. Plan for physical therapy is here to evaluate the patient. 3:45 PM Urinalysis nitrite negative. Trace ketonuria. Patient worked with physical therapy in the emergency department. Diagnostic interpretations performed by me: Per my independent interpretation chest x-ray shows: No acute cardiopulmonary process Per my independent interpretation EKG shows: Narrow complex normal sinus rhythm at a rate of 89. Left anterior fascicular block. No ST segment abnormalities. QTc within normal limits. WA within normal limits. No acute injury pattern. HPI The patient presents for evaluation of a fall. He experienced a fall today, resulting in right forearm injury. He reports no respiratory distress or chest discomfort. He has been consuming significant amounts of water and urinated last night. He is uncertain about his medication intake this morning. He resides alone and suspects the presence of bedbugs in his home. Paramedics report that patient has been confused over his home medications. There are pill packs reportedly in the trash. There was reportedly cardboard in his toe. Exam General: Elderly-appearing in no acute distress speaking in complete sentences. Head: Normocephalic, atraumatic. Eye:[Pupils equal, round reactive to light.] Extraocular eye movements intact. No conjunctival injection. No scleral icterus. Ear, nose, mouth, throat: Grossly normal inspection. Normal voice, handling secretions normally. Neck: Trachea midline. No nuchal rigidity Cardiovascular: Well-perfused distal extremities. Regular rate and rhythm Respiratory: Nonlabored respiration. Clear lungs bilaterally Gastrointestinal: Nondistended abdomen. Musculoskeletal: No edema. Moving all 4 extremities spontaneously. Right forearm tenderness with ecchymosis on the dorsal surface. Left upper extremity nontender. Right lower extremity tenderness hip on passive range of motion. No obvious deformities. Bilateral calf tenderness. Left lower extremity nontender with the exception of left calf tenderness. Intact DP and PT pulses. Skin: Normal for age and race, grossly normal temperature and turgor. No acute rash. Neurologic: Alert and appropriate, no apparent acute deficits. GCS 15. Psychiatric: Flat affect. No pressured speech. No flight of ideas. Related Data Home Medications Medication Instructions Recorded Confirmed ibuprofen 600 mg tablet 600 mg PO Q8H PRN 10/17/18 05/01/25 metformin 1,000 mg tablet 1,000 mg PO BID #180 tab-caps 06/25/24 05/01/25 acetaminophen 325 mg capsule 650 mg (2 x 325 mg) PO Q6H PRN PRN 07/07/24 05/01/25 #60 caps duloxetine 60 mg capsule,delayed 60 mg PO DAILY #90 caps 07/15/24 05/01/25 release (Cymbalta) ferrous sulfate 325 mg (65 mg 325 mg PO DAILY #90 tabs 07/18/24 05/01/25 iron) tablet (FeroSul) aripiprazole 30 mg tablet (Abilify) 30 mg PO DAILY #90 tabs 09/09/24 05/01/25 benztropine 0.5 mg tablet 0.5 mg PO BID #180 tabs 10/07/24 05/01/25 quetiapine 200 mg tablet,extended 200 mg PO QHS #90 tabs 10/07/24 05/01/25 release 24 hr atorvastatin 10 mg tablet 10 mg PO QPM #90 tabs 01/09/25 05/01/25 loratadine 10 mg tablet 10 mg PO DAILY #30 tabs 04/24/25 05/01/25 clonazepam 0.5 mg tablet 0.5 mg PO BID #60 tabs 05/05/25 Previous Rx's Medication Instructions Recorded metformin 1,000 mg tablet 1,000 mg PO BID #180 tab-caps 06/25/24 acetaminophen 325 mg capsule 650 mg (2 x 325 mg) PO Q6H PRN PRN 07/07/24 #60 caps duloxetine 60 mg capsule,delayed 60 mg PO DAILY #90 caps 07/15/24 release (Cymbalta) ferrous sulfate 325 mg (65 mg 325 mg PO DAILY #90 tabs 07/18/24 iron) tablet (FeroSul) aripiprazole 30 mg tablet (Abilify) 30 mg PO DAILY #90 tabs 09/09/24 benztropine 0.5 mg tablet 0.5 mg PO BID #180 tabs 10/07/24 quetiapine 200 mg tablet,extended 200 mg PO QHS #90 tabs 10/07/24 release 24 hr atorvastatin 10 mg tablet 10 mg PO QPM #90 tabs 01/09/25 loratadine 10 mg tablet 10 mg PO DAILY #30 tabs 04/24/25 clonazepam 0.5 mg tablet 0.5 mg PO BID #60 tabs 05/05/25 Allergies Allergy/AdvReac Type Severity Reaction Status Date / Time No Known Allergies Allergy Unverified 05/01/25 04:41 General SOLO: 3 PFSH All Active Problems (Updated 05/12/25 @ 15:50 by Agustín Ignacio MD) Ketonuria (Acute) Acute dehydration (Acute) Hypomagnesemia (Acute) Acute kidney injury (Acute) Orthostasis (Acute) Hip pain (Acute) Fall (Acute) Iron deficiency anemia (Acute) Schizophrenia (Chronic) Symptomatic anemia (Acute) Diabetes mellitus (Chronic) work on weight loss keep active A1c Obesity (BMI 30-39.9) (Acute 10/04/17) Medical History Fall Diarrhea Impacted cerumen of both ears Pericarditis 10/15/18; [facility] [place] Pericarditis Depression Anxiety Rectus diastasis (12/06/16) Dental caries (12/06/16) Surgical History No significant past surgical history Family History Mother No problems noted. Father Neoplasm BLADDER Sister Depression Sister No problems noted. Brother Heart disease Asthma Daughter No problems noted. Social History Smoking/Tobacco Use Status: Former Tobacco Use tobacco type: cigarettes Tobacco: How many years used: 4 Second Hand Exposure: Yes Smoking risk assessment performed?: Yes Alcohol Intake: former Drug use: Never Substance use type: does not use Caregiver/Support person: No Household members: none Housing: apartment Communication Needs: Corrective Lenses Do you need help understanding health information?: Rarely Pets and animals: No Sexually active: No Do you think of yourself as: straight/heterosexual Current gender identity: male What is your relationship status?: How often do you talk on the phone with friends or family?: three or more times per week How often do you get together with friends or relatives?: three or more times per week How often do you attend jehovah's witness or sabianism services?: 4 or more times per year Do you belong to any clubs or organized social groups?: no Panel score (0-1 are the most socially isolated patients): 2 What type of physical activity do you participate in: walking Duration: 15-30 minutes/day Frequency: 3-4 times per week Izzy/Denominational: Congregational Special izzy needs: No Seatbelt use: always Drive intox or ride w/intox six horse hitch driver: No Do you feel safe at home: Yes Do you feel safe in your relationship?: Yes
--- NOTE | 2025-05-12 11:30 | DI.RAD_ITS ---
Exam(s) XR FEMUR RT EXAM: XR FEMUR RT CLINICAL HISTORY: Right hip pain. TECHNIQUE: 2D digital imaging was performed of the right femur. Four images were obtained. AP and lateral views were obtained. COMPARISON: No exams were available for comparison FINDINGS: BONES: No acute fracture is present. No bony destructive lesion is seen. Visualized portion of knee and hip joints are unremarkable. SOFT TISSUE: Normal. IMPRESSION: There is no acute fracture or dislocation. DATA REPOSITORY: RADIATION DOSE DELIVERED:
--- NOTE | 2025-05-12 11:30 | DI.RAD_ITS ---
Exam(s) XR PELVIS AP EXAM: XR PELVIS AP CLINICAL HISTORY: Fall right hip pain. TECHNIQUE: 2D digital imaging was performed.Two images were obtained. COMPARISON: No exams were available for comparison FINDINGS: BONES: No acute fracture is present. No bony destructive lesion is seen. JOINTS: No dislocation present. No joint space narrowing is present. SOFT TISSUE: Normal. IMPRESSION: There is no acute fracture or dislocation. DATA REPOSITORY: RADIATION DOSE DELIVERED:
[2025-05-12 11:47] LABS: Abs Immature Grans 0.02 10^3/uL (0.0-0.06); HCT 30.7 % (40.0-50.0); HGB 9.9 g/dL (13.5-17.5); Immature Grans % 0.2 %; MCH 28.9 pg (27.0-33.0); MCHC 32.2 % (32.0-36.0); MCV 90 fL (80-95); MPV 8.9 fL (8.0-11.0); Platelet Count 225 10^3/uL (130-400); RBC 3.43 10^6/uL (4.36-5.78); RDW 13.7 % (11.8-14.1); RDW-SD 44.7 fL; WBC 8.28 10^3/uL (4.4-10.8)
[2025-05-12 12:13] LABS: Salicylate < 2.8 mg/dL (<2.8)
[2025-05-12 12:15] LABS: Acetaminophen 5 ug/mL (10-30)
[2025-05-12 12:16] LABS: ALT 40 U/L (16-63); AST 5 U/L (15-37); Albumin 3.6 g/dL (3.4-5.0); Alkaline Phosphatase 76 U/L (46-116); Anion Gap 8.5 mmol/L (3-11); BUN 31 mg/dL (7-18); Bilirubin, Total 0.4 mg/dL (0.2-1.0); CO2 29.5 mmol/L (21.0-32.0); Calcium 8.8 mg/dL (8.5-10.1); Chloride 102 mmol/L (98-107); Glucose 97 mg/dL (74-106); Magnesium 1.5 mg/dL (1.8-2.4); Potassium 4.7 mmol/L (3.5-5.1); Sodium 140 mmol/L (136-145); Total Protein 8.1 g/dL (6.4-8.2)
[2025-05-12 12:19] LABS: Creatine Kinase 371 U/L (39-308)
[2025-05-12 12:31] LABS: TSH (W/Ref FT4) 2.70 uIU/mL (0.36-3.74); Troponin I 15 ng/L (<or=76)
--- NOTE | 2025-05-12 13:04 | DI.RAD_ITS ---
Exam(s) XR CHEST 1V IN DI DEPT EXAM: XR CHEST 1V IN DI DEPT CLINICAL HISTORY: Fall TECHNIQUE: 2D digital imaging was performed of the chest. Two images were obtained. AP views were obtained. COMPARISON: No exams were available for comparison FINDINGS: MEDIASTINUM: Normal. HEART: Normal. PULMONARY VASCULATURE: Normal. LUNGS: Clear. PLEURAL SPACE: No pleural effusion or pneumothorax. BONE:Within normal limits for the patient's age. OTHER FINDINGS:Normal. IMPRESSION: No acute pulmonary findings. DATA REPOSITORY: RADIATION DOSE DELIVERED:
--- NOTE | 2025-05-12 13:04 | DI.RAD_ITS ---
Exam(s) XR FOREARM RT EXAM: XR FOREARM RT CLINICAL HISTORY: Right forearm pain. TECHNIQUE: 2D digital imaging was performed of the left forearm. Two views were obtained. AP and lateral views were obtained. COMPARISON: No exams were available for comparison FINDINGS: BONES: No acute fracture is present. No bony destructive lesion is seen. Visualized portion of elbow and wrist joints are unremarkable. SOFT TISSUE: Normal. IMPRESSION: There is no acute fracture or dislocation. DATA REPOSITORY: RADIATION DOSE DELIVERED:
[2025-05-12] MEDS: Magnesium Oxide 400 MG TAB PO (13:27)
[2025-05-12] MEDS: Normal Saline 1,000 ML 1000 ML IV (13:30)
[2025-05-12] MEDS: Acetaminophen 500 MG TAB 1000 MG PO (13:32)
[2025-05-12 14:45] LABS: Troponin I 18 ng/L (<or=76)
--- NOTE | 2025-05-12 15:42 | PT.INIE ---
PT Notes Visit Reasons: [facility]EX/ A[facility] Physical Therapy Initial Evaluation Date: 05/12/2025 Referring Doctor: Dr Ignacio PT Orders: PT CONSULT: PT evaluation and treatment Precautions: Fall risk, contact precautions Patient Profile/Admitting Diagnosis: 74-year-old male with history of schizophrenia, diabetes mellitus, iron deficiency anemia, depression, anxiety, and obesity presented to the ED via EMS on 05/09/25 after awakening from a vivid dream involving soldiers and being unable to distinguish reality from imagination. He lives alone and had not taken his psychiatric medications for three days. He denied any recent illness or substance use. The patient was somnolent but arousable, oriented, cooperative, and in no acute distress. Vital signs were stable. Physical exam was largely unremarkable except for a 3/6 systolic murmur and a shuffling, wide-based gait. No focal neurologic deficits were noted. The ED provider contacted [facility] for evaluation. The [facility] child care worker met with the patient, established a safety plan, and cleared him for discharge home. He rested overnight in the ED and was discharged in the morning with instructions for return as needed and to resume his prescribed medications. We do not have access to the [facility] documentaiton, unsure of what the safety plan is or if they assist him with his medications. Today, the patient re-presents after a fall at home earlier today. He reports right forearm and right hip pain following the fall. X-rays of forearm and hip negative for fracture. Patient labs revealed Marked ALISHA, elevated BUN, mild hypomagnesemia. PT consult placed to assess for safe discharge. Patient to be admitted to MedSurg unit for further medical management of acute dehydration treated with IV fluids and medication management and prep for discharge to home with additional supportive services. PMHX: Difficulty managing medication (Acute) Ketonuria (Acute) Acute dehydration (Acute) Hypomagnesemia (Acute) Acute kidney injury (Acute) Orthostasis (Acute) Hip pain (Acute) Fall (Acute) Iron deficiency anemia (Acute) Schizophrenia (Chronic) Symptomatic anemia (Acute) Diabetes mellitus (Chronic) work on weight loss keep active [id number] (BMI 30-39.9) (Acute 10/04/17) Medical History Fall Diarrhea Impacted cerumen of both ears [facility]icarditis 10/15/18; [facility] Anxiety Rectus diastasis (12/06/16) Dental caries (12/06/16) Surgical History No significant past surgical history Social History/Home Situation: Patient resides in [facility] with elevator access to apartment. He is provided with 1 meal a day and then responsible for his remaining meals. Patient reports independence with ADLs Equipment Owned/DME: Patient reports he has FWW at home Subjective: Patient reports he has rash on bilateral forearms and wrists which he states are from bedbugs. Objective: [] General Observation: Elderly male seated in chair in emergency department. Per MD and RN patient to remain in room due to patient report of bedbugs. RN reports no visual sighting of bedbugs however patient does have rash on wrists and forearms. Mental Status: Alert and oriented x 3, slow to respond to questions, flat affect, able to follow instructions with cues, agreeable to participate in assessment Pain: Denied ROM: [] Right Upper Extremity: WFL Left Upper Extremity: WFL Right Lower Extremity: WFL with noted hamstring tightness Left Lower Extremity: WFL with noted hamstring tightness Strength: [] Right Upper Extremity: Grossly 3/5 functional against gravity all joints Left Upper Extremity: Grossly 3/5 functional against gravity all joints Right Lower Extremity: Grossly 3 -/5 Left Lower Extremity: Grossly 3 -/5 Sensation: Appears intact bilateral upper and lower extremities Bed Mobility/Transfers: [] Supine to sit CGA Sit to stand min A Stand to sit Ada Bed to chair CGA with FWW Gait: Simulated ambulation within room with FWW marching in place for 10 steps with min assist/CGA due to to patient restricted to ER room. Patient noted with tremor bilateral upper extremities due to excessive weightbearing through upper extremities to unweight lower extremities for marching Balance: [] Static Sitting: Normal Dynamic Sitting: Good Static Standing: Fair with upper extremity support Dynamic Standing: Fair plus with upper extremity support Special Tests: [] Mobility Limitations Standardized Measure [] [facility] AM-PAC 6 clicks Basic Mobility Inpatient Short Form: [] Raw Score: 18 CMS Score: 46.58% deficit Informed Consent/Education: Patient instructed in purpose of PT consult. Assessment: Patient is 74-year-old male demonstrating impaired cognition, slow initiation of movement, slow response to questions. Patient presents with clinical signs and symptoms consistent with current/admitting diagnoses that have resulted to mobility limitations, gait instability, generalized weakness, and impairment of motor control as demonstrated by the following impairment level findings: 1. generalized weakness BUE/LE 2. Impaired standing balance 3. Tremor bilateral upper extremities by weightbearing on FWW and standing 4. Impaired functional activity tolerance 5. Impaired cognition/slow to response Impairments are contributing to the following functional limitations: 1. Inability to safely ambulate without assistive device 2. Increase completion time for mobility ADL performance 3. Increased fall risk 4. Decline in transfer skills 5. Decline in bed mobility skills Patient is assessed as a low complexity based on the following: History: 74-year-old male with impairment level findings, functional limitations, and past medical history as indicated above Examination: Demonstrable impairment in strength, balance, and mobility level with underlying impairments and functional limitations as documented above Presentation:Stable Decision Making: Low Goals: 1. Independent bed mobility 2. SBA transfers with FWW 3. SBA ambulation with FWW greater than 150 feet level surfaces including turns 4. Supervision with home exercise program to increase bilateral lower extremity strength Plan of Care/Treatment Plan: DISCHARGE RECOMMENDATIONS: Pt is not safe for discharge to home at this time . Pt would benefit from inpatient PT with goal of home with HHPT vs SNF depending on progress toward goals. TREATMENT CODE/TIME:28579/ [id number] Thank you for the opportunity to participate in the care of this patient. Jackelin Yeung, PT [facility]
[2025-05-12 15:45] LABS: Glucose Negative (Negative)
[2025-05-12 16:00] LABS: Creatinine,Urine 102.95 mg/dL; Sodium, Urine 43 mmol/L
--- NOTE | 2025-05-12 18:35 | W.PM.HP.N ---
Date of service: 05/12/25 Time of Service: 18:35 Assessment and Plan Assessment and plan (1) Acute dehydration: Status: Acute Assessment and plan: IV fluids – NS 1L bolus completed in ED Encourage oral fluids (2) Hypomagnesemia: Status: Acute Assessment and plan: Replete magnesium orally Trend (3) Acute kidney injury: Status: Acute Assessment and plan: Cr 2.2 (baseline 1.3) Monitor renal function and electrolytes Hold nephrotoxic or sedating meds as clinically indicated (4) Fall: Status: Acute Assessment and plan: PT/OT evaluation for mobility and fall risk (5) Schizophrenia: Status: Chronic Assessment and plan: EKG monitoring for QTc given multiple psychotropic medications Continue duloxetine, aripiprazole, quietiapine, benztropine, clonazepam (6) Diabetes mellitus: Status: Chronic Assessment and plan: Diabetic diet, hold metformin SSI FS ACHS (7) Difficulty managing medication: Status: Acute Assessment and plan: Care management for medication organization and home health support. Home health nursing on discharge? History of Present Illness History of Present Illness Chief Complaint: Fall Narrative: 74-year-old male with history of schizophrenia, diabetes mellitus, iron deficiency anemia, depression, anxiety, and obesity presented to the ED via EMS on 05/09/25 after awakening from a vivid dream involving soldiers and being unable to distinguish reality from imagination. He lives alone and had not taken his psychiatric medications for three days. He denied any recent illness or substance use. The patient was somnolent but arousable, oriented, cooperative, and in no acute distress. Vital signs were stable. Physical exam was largely unremarkable except for a 3/6 systolic murmur and a shuffling, wide-based gait. No focal neurologic deficits were noted. The ED provider contacted [facility] for evaluation. The [facility] general farmworker met with the patient, established a safety plan, and cleared him for discharge home. He rested overnight in the ED and was discharged in the morning with instructions for return as needed and to resume his prescribed medications. We do not have access to the [facility] documentaiton, unsure of what the safety plan is or if they assist him with his medications. Today, the patient re-presents after a fall at home earlier today. He reports right forearm and right hip pain following the fall. Denies chest pain, shortness of breath, or recent illness. He lives alone and admits confusion regarding his medications; paramedics noted multiple discarded pill packs and disorganization of home medications. He has been drinking excessive water and urinated last night. No reported loss of consciousness, seizure activity, or head trauma symptoms. CT Head: No acute intracranial process CXR: No acute cardiopulmonary disease Pelvis/Femur/Forearm X-rays: No acute fractures EKG: NSR, rate 89, LAFB, normal QTc, no ischemic changes CMP: Marked ALISHA, elevated BUN, mild hypomagnesemia CBC: Normocytic anemia, worse from baseline CK: Mildly elevated, not consistent with rhabdomyolysis UA: Trace ketones, nitrite negative The patient was evaluated in the ED by PT and found to have clinical signs and symptoms consistent with current/admitting diagnoses that have resulted to mobility limitations, gait instability, generalized weakness, and impairment of motor control as demonstrated by the following impairment level findings: 1. generalized weakness BUE/LE 2. Impaired standing balance Impairments are contributing to the following functional limitations: 1. Inability to safely ambulate without assistive device 2. Increase completion time for mobility ADL performance 3. Increased fall risk Admit to hospitalist service for hydration and medication management. Patient agrees with plan of care. Plan for 2-3 days hospitalization with discharge with home PT/OT v SNF. Patient is a full code. Review of Systems Narrative: Constitutional: Weakness, fatigue; no fever or chills HEENT: No headache, dizziness, or visual changes Cardiac: No chest pain or palpitations Respiratory: No dyspnea or cough GI: No abdominal pain, nausea, or vomiting : Voiding spontaneously Musculoskeletal: Right forearm and hip pain post-fall Neuro: Confusion regarding medications, otherwise alert and oriented Skin: No rash or open wounds Psych: Flat affect; history of schizophrenia PFSH All Active Problems (Updated 05/12/25 @ 18:42 by Cristina Bro NP) Difficulty managing medication (Acute) Ketonuria (Acute) Acute dehydration (Acute) Hypomagnesemia (Acute) Acute kidney injury (Acute) Orthostasis (Acute) Hip pain (Acute) Fall (Acute) Iron deficiency anemia (Acute) Schizophrenia (Chronic) Symptomatic anemia (Acute) Diabetes mellitus (Chronic) work on weight loss keep active A1c Obesity (BMI 30-39.9) (Acute 10/04/17) Medical History Fall Diarrhea Impacted cerumen of both ears Pericarditis 10/15/18; [facility] [place] Pericarditis Depression Anxiety Rectus diastasis (12/06/16) Dental caries (12/06/16) Surgical History No significant past surgical history Family History Mother No problems noted. Father Neoplasm BLADDER Sister Depression Sister No problems noted. Brother Heart disease Asthma Daughter No problems noted. Social History Smoking/Tobacco Use Status: Former Tobacco Use tobacco type: cigarettes Tobacco: How many years used: 4 Second Hand Exposure: Yes Smoking risk assessment performed?: Yes Alcohol Intake: former Drug use: Never Substance use type: does not use Caregiver/Support person: No Household members: none Housing: apartment Communication Needs: Corrective Lenses Do you need help understanding health information?: Rarely Pets and animals: No Sexually active: No Do you think of yourself as: straight/heterosexual Current gender identity: male What is your relationship status?: How often do you talk on the phone with friends or family?: three or more times per week How often do you get together with friends or relatives?: three or more times per week How often do you attend jewish or rastafarian services?: 4 or more times per year Do you belong to any clubs or organized social groups?: no Panel score (0-1 are the most socially isolated patients): 2 What type of physical activity do you participate in: walking Duration: 15-30 minutes/day Frequency: 3-4 times per week Izzy/Sabianism: Scientology Special izzy needs: No Seatbelt use: always Drive intox or ride w/intox auto crane driver: No Do you feel safe at home: Yes Do you feel safe in your relationship?: Yes Meds Allergies and Home Medications Allergies Allergy/AdvReac Type Severity Reaction Status Date / Time No Known Allergies Allergy Unverified 05/01/25 04:41 Home Medications Medication Instructions Recorded Confirmed Type ibuprofen 600 mg tablet 600 mg PO Q8H PRN 10/17/18 05/01/25 History metformin 1,000 mg tablet 1,000 mg PO BID #180 tab-caps 06/25/24 05/01/25 Rx acetaminophen 325 mg capsule 650 mg (2 x 325 mg) PO Q6H PRN PRN 07/07/24 05/01/25 Rx #60 caps duloxetine 60 mg capsule,delayed 60 mg PO DAILY #90 caps 07/15/24 05/01/25 Rx release (Cymbalta) ferrous sulfate 325 mg (65 mg 325 mg PO DAILY #90 tabs 07/18/24 05/01/25 Rx iron) tablet (FeroSul) aripiprazole 30 mg tablet (Abilify) 30 mg PO DAILY #90 tabs 09/09/24 05/01/25 Rx benztropine 0.5 mg tablet 0.5 mg PO BID #180 tabs 10/07/24 05/01/25 Rx quetiapine 200 mg tablet,extended 200 mg PO QHS #90 tabs 10/07/24 05/01/25 Rx release 24 hr atorvastatin 10 mg tablet 10 mg PO QPM #90 tabs 01/09/25 05/01/25 Rx loratadine 10 mg tablet 10 mg PO DAILY #30 tabs 04/24/25 05/01/25 Rx clonazepam 0.5 mg tablet 0.5 mg PO BID #60 tabs 05/05/25 Rx Exam Narrative Exam Narrative: General: Chronically ill-appearing male, no acute distress, speaking in full sentences HEENT: Normocephalic, atraumatic; PERRLA, EOMI; no icterus Neck: Supple, trachea midline Cardiac: RRR, no murmurs; distal pulses intact Respiratory: Clear to auscultation bilaterally, nonlabored respirations Abdomen: Soft, nondistended, nontender Extremities: Right forearm: Tenderness and ecchymosis dorsally Right hip: Pain with passive ROM, no deformity Bilateral calves: Mild tenderness, no cords, pulses intact Neuro: Alert, GCS 15, no focal deficits Psych: Flat affect, no agitation or pressured speech Skin: Warm, dry, no rash Results Labs 05/12/25 11:30 05/12/25 11:30 Labs: Laboratory Results - last 24 hr 05/12/25 05/12/25 05/12/25 11:30 14:20 15:26 WBC 8.28 RBC 3.43 L Hgb 9.9 L Hct 30.7 L MCV 90 MCH 28.9 MCHC 32.2 RDW 13.7 Plt Count 225 MPV 8.9 Immature Gran % 0.2 Neutrophils % 63.6 Lymphocytes % 22.8 Monocytes % 9.4 Eosinophils % 3.4 Basophils % 0.6 Nucleated RBC % 0.0 Absolute Neutrophils 5.26 Absolute Lymphocytes 1.89 Absolute Monocytes 0.78 Absolute Eosinophils 0.28 Absolute Basophils 0.05 Sodium 140 Potassium 4.7 Chloride 102 Carbon Dioxide 29.5 Anion Gap 8.5 BUN 31 H Creatinine 2.2 H Est GFR (CKD-EPI 2020) 30.66 Glucose 97 Calcium 8.8 Magnesium 1.5 L Total Bilirubin 0.4 AST 5 L ALT 40 Alkaline Phosphatase 76 Creatine Kinase 371 H Troponin I 15 18 Total Protein 8.1 Albumin 3.6 TSH 2.70 Urine Color Yellow Urine Clarity Clear Urine pH 5.5 Ur Specific [place] 1.015 Urine Protein Negative Urine Ketones Trace H Urine Blood Negative Urine Nitrite Negative Urine Bilirubin Negative Urine Urobilinogen 0.2 Ur Leukocyte Esterase Negative Ur Random Creatinine 102.95 Ur Random Sodium 43 Urine Glucose Negative Salicylates < 2.8 Acetaminophen 5 Ethyl Alcohol < 3.0 Last Vital Signs Temp 36.6 C 05/12/25 10:56 Pulse 80 05/12/25 17:53 Resp 16 05/12/25 17:53 BP 132/85 05/12/25 17:53 Pulse Ox 98 05/12/25 17:53 Time Spent Time spent with Patient: 40-54 minutes Time was spent: preparing to see the patient(eg.review tests), obtaining and/or reviewing separately otained hiistory, ordering medications,tests, procedures, referring, communicating with other health managed care director, indepentently interpreting results, counseling the patient and care coordination
--- NOTE | 2025-05-12 22:19 | W.PC.ACHO ---
Registration Status: ADM BRAYDEN Primary Language: Preferred Language: Maori ED Information & Data Chief Complaint AMS/LOC 05/12/25 10:57 Chief Complaint AMS/LOC 05/12/25 10:51 Triage Note EMS at his house multiple 05/12/25 10:51 times this weekend, increased confusion, found med packs all open with some taken full, some half taken , and some pills in the trash- reports of increased weakness Medical / Surgical History (Last Reviewed 04/26/25 @ 14:48 by Agustín Day) Fall Dental caries (12/06/16) Rectus diastasis (12/06/16) Pericarditis Impacted cerumen of both ears Diarrhea Pericarditis Depression Anxiety (Last Reviewed 04/26/25 @ 14:48 by Agustín Day) No significant past surgical history Most Recent Vital Signs Temperature 37 C 05/12/25 20:00 Temperature Source Temporal Artery Scan 05/12/25 10:56 Pulse 83 05/12/25 20:50 Pulse 82 05/12/25 20:50 Respiratory Rate 13 05/12/25 20:50 Respiratory Effort Normal 05/12/25 11:33 Respiratory Depth Normal 05/12/25 11:33 Respiratory Pattern Normal 05/12/25 11:33 Blood Pressure 162/82 H 05/12/25 20:31 Blood Pressure Mean 110 05/12/25 20:31 Blood Pressure Position Sitting 05/12/25 10:56 Pulse Oximetry 100 05/12/25 20:50 Oxygen Delivery Method Room Air 05/12/25 17:53 Oxygen Flow Rate 0 05/12/25 17:53 Pain Level 0 05/12/25 20:00 Allergies No Known Allergies Allergy (Unverified 05/01/25 04:41) Precautions Isolation Standard precaution 05/12/25 10:57 IV IV Catheter Type [Left Saline Lock Antecubital] IV Catheter Gauge [Left 18 Antecubital] Diagnostics 05/12/25 05/12/25 05/12/25 Range/Units 15:26 14:20 11:30 WBC 8.28 (4.4-10.8) 10^3/uL RBC 3.43 L (4.36-5.78) 10^6/uL Hgb 9.9 L (13.5-17.5) g/dL Hct 30.7 L (40.0-50.0) % MCV 90 (80-95) fL MCH 28.9 (27.0-33.0) pg MCHC 32.2 (32.0-36.0) % RDW 13.7 (11.8-14.1) % Plt Count 225 (130-400) 10^3/uL MPV 8.9 (8.0-11.0) fL Immature Gran % 0.2 % Neutrophils % 63.6 % Lymphocytes % 22.8 % Monocytes % 9.4 % Eosinophils % 3.4 % Basophils % 0.6 % Nucleated RBC % 0.0 (0.0-0.3) % Absolute Neutrophils 5.26 (1.2-6.7) 10^3/uL Absolute Lymphocytes 1.89 (1.2-3.4) 10^3/uL Absolute Monocytes 0.78 (0.1-0.8) 10^3/uL Absolute Eosinophils 0.28 (0.0-0.7) 10^3/uL Absolute Basophils 0.05 (0.0-0.2) 10^3/uL Sodium 140 (136-145) mmol/L Potassium 4.7 (3.5-5.1) mmol/L Chloride 102 (98-107) mmol/L Carbon Dioxide 29.5 (21.0-32.0) mmol/L Anion Gap 8.5 (3-11) mmol/L BUN 31 H (7-18) mg/dL Creatinine 2.2 H (0.70-1.30) mg/dL Est GFR (CKD-EPI 2020) 30.66 (mL/min/1.73m2) Glucose 97 (74-106) mg/dL Calcium 8.8 (8.5-10.1) mg/dL Magnesium 1.5 L (1.8-2.4) mg/dL Total Bilirubin 0.4 (0.2-1.0) mg/dL AST 5 L (15-37) U/L ALT 40 (16-63) U/L Alkaline Phosphatase 76 (46-116) U/L Creatine Kinase 371 H (39-308) U/L Troponin I 18 15 (<or=76) ng/L Total Protein 8.1 (6.4-8.2) g/dL Albumin 3.6 (3.4-5.0) g/dL TSH 2.70 (0.36-3.74) uIU/mL Urine Color Yellow (Yellow) Urine Clarity Clear (Clear) Urine pH 5.5 (5-8) Ur Specific [place] 1.015 (1.005-1.025) Urine Protein Negative (Neg-Trace) mg/dL Urine Ketones Trace H (Negative) mg/dL Urine Blood Negative (Negative) Urine Nitrite Negative (Negative) Urine Bilirubin Negative (Negative) Urine Urobilinogen 0.2 (Up to 0.2) mg/dL Ur Leukocyte Esterase Negative (Negative) Ur Random Creatinine 102.95 mg/dL Ur Random Sodium 43 mmol/L Urine Glucose Negative (Negative) mg/dL Salicylates < 2.8 (<2.8) mg/dL Acetaminophen 5 (10-30) ug/mL Ethyl Alcohol < 3.0 (<10) mg/dL Intake and Output - 24 Hour Total 05/12/25 10:44 thru 05/12/25 15:00 Intake Total 1000 Balance 1000 Weight 96.162 kg Intake: IV 1000 Falls Risk Assessment History of Falls Admit Due to Fall 05/12/25 11:33 Contributing Factors Impairments 05/12/25 11:33 Ambulatory Aids Uses ambulatory device 05/12/25 11:33 Tubes/Lines None 05/12/25 11:33 Gait Evaluation W/no contributing factors 05/12/25 11:33 Cognition No cognitive impairment 05/12/25 11:33 Fall Total Score 53 05/12/25 11:33 Level of Risk High Risk 05/12/25 11:33 Problems (Last Reviewed 04/26/25 @ 14:48 by Agustín Day) Difficulty managing medication (Acute) Ketonuria (Acute) Acute dehydration (Acute) Hypomagnesemia (Acute) Acute kidney injury (Acute) Fall (Acute) Schizophrenia (Chronic) Diabetes mellitus (Chronic) v v v v v v v v v Sending and/or Receiving Nurses: Please use comment section below to note any information pertinent to the patient hand-off not included above. Information / Comments: Pt BIBA after fall. Lives in housing development ind. History of schizophrenia. Pt stated to EMS that apt had been treated for bedbugs. None seen on pt/in room since arrival to hospital. Pt A&Ox3, follows commands and is a stand pivot to BSC. 2L NS given in ED, Pt has DM, ACHS F/S. Report received from: Eunice España, RASHAWN
--- NOTE | 2025-05-12 22:28 | W.PC.ACHO ---
Registration Status: ADM BRAYDEN Primary Language: Preferred Language: [place] Zealander ED Information & Data Chief Complaint AMS/LOC 05/12/25 10:57 Chief Complaint AMS/LOC 05/12/25 10:51 Triage Note EMS at his house multiple 05/12/25 10:51 times this weekend, increased confusion, found med packs all open with some taken full, some half taken , and some pills in the trash- reports of increased weakness Medical / Surgical History (Last Reviewed 04/26/25 @ 14:48 by Agustín Day) Fall Dental caries (12/06/16) Rectus diastasis (12/06/16) Pericarditis Impacted cerumen of both ears Diarrhea Pericarditis Depression Anxiety (Last Reviewed 04/26/25 @ 14:48 by Agustín Day) No significant past surgical history Most Recent Vital Signs Temperature 37 C 05/12/25 20:00 Temperature Source Temporal Artery Scan 05/12/25 10:56 Pulse 83 05/12/25 20:50 Pulse 82 05/12/25 20:50 Respiratory Rate 13 05/12/25 20:50 Respiratory Effort Normal 05/12/25 11:33 Respiratory Depth Normal 05/12/25 11:33 Respiratory Pattern Normal 05/12/25 11:33 Blood Pressure 162/82 H 05/12/25 20:31 Blood Pressure Mean 110 05/12/25 20:31 Blood Pressure Position Sitting 05/12/25 10:56 Pulse Oximetry 100 05/12/25 20:50 Oxygen Delivery Method Room Air 05/12/25 17:53 Oxygen Flow Rate 0 05/12/25 17:53 Pain Level 0 05/12/25 20:00 Allergies No Known Allergies Allergy (Unverified 05/01/25 04:41) Precautions Isolation Standard precaution 05/12/25 10:57 IV IV Catheter Type [Left Saline Lock Antecubital] IV Catheter Gauge [Left 18 Antecubital] Diet Orders Category Date Time Status Diabetes Consistent CHO/Heart Healthy [DIET] Nutrition 05/12/25 Dinner Active Diagnostics 05/12/25 05/12/25 05/12/25 Range/Units 15:26 14:20 11:30 WBC 8.28 (4.4-10.8) 10^3/uL RBC 3.43 L (4.36-5.78) 10^6/uL Hgb 9.9 L (13.5-17.5) g/dL Hct 30.7 L (40.0-50.0) % MCV 90 (80-95) fL MCH 28.9 (27.0-33.0) pg MCHC 32.2 (32.0-36.0) % RDW 13.7 (11.8-14.1) % Plt Count 225 (130-400) 10^3/uL MPV 8.9 (8.0-11.0) fL Immature Gran % 0.2 % Neutrophils % 63.6 % Lymphocytes % 22.8 % Monocytes % 9.4 % Eosinophils % 3.4 % Basophils % 0.6 % Nucleated RBC % 0.0 (0.0-0.3) % Absolute Neutrophils 5.26 (1.2-6.7) 10^3/uL Absolute Lymphocytes 1.89 (1.2-3.4) 10^3/uL Absolute Monocytes 0.78 (0.1-0.8) 10^3/uL Absolute Eosinophils 0.28 (0.0-0.7) 10^3/uL Absolute Basophils 0.05 (0.0-0.2) 10^3/uL Sodium 140 (136-145) mmol/L Potassium 4.7 (3.5-5.1) mmol/L Chloride 102 (98-107) mmol/L Carbon Dioxide 29.5 (21.0-32.0) mmol/L Anion Gap 8.5 (3-11) mmol/L BUN 31 H (7-18) mg/dL Creatinine 2.2 H (0.70-1.30) mg/dL Est GFR (CKD-EPI 2020) 30.66 (mL/min/1.73m2) Glucose 97 (74-106) mg/dL Calcium 8.8 (8.5-10.1) mg/dL Magnesium 1.5 L (1.8-2.4) mg/dL Total Bilirubin 0.4 (0.2-1.0) mg/dL AST 5 L (15-37) U/L ALT 40 (16-63) U/L Alkaline Phosphatase 76 (46-116) U/L Creatine Kinase 371 H (39-308) U/L Troponin I 18 15 (<or=76) ng/L Total Protein 8.1 (6.4-8.2) g/dL Albumin 3.6 (3.4-5.0) g/dL TSH 2.70 (0.36-3.74) uIU/mL Urine Color Yellow (Yellow) Urine Clarity Clear (Clear) Urine pH 5.5 (5-8) Ur Specific [place] 1.015 (1.005-1.025) Urine Protein Negative (Neg-Trace) mg/dL Urine Ketones Trace H (Negative) mg/dL Urine Blood Negative (Negative) Urine Nitrite Negative (Negative) Urine Bilirubin Negative (Negative) Urine Urobilinogen 0.2 (Up to 0.2) mg/dL Ur Leukocyte Esterase Negative (Negative) Ur Random Creatinine 102.95 mg/dL Ur Random Sodium 43 mmol/L Urine Glucose Negative (Negative) mg/dL Salicylates < 2.8 (<2.8) mg/dL Acetaminophen 5 (10-30) ug/mL Ethyl Alcohol < 3.0 (<10) mg/dL Intake and Output - 24 Hour Total 05/12/25 10:44 thru 05/12/25 15:00 Intake Total 1000 Balance 1000 Weight 96.162 kg Intake: IV 1000 Falls Risk Assessment History of Falls Admit Due to Fall 05/12/25 11:33 Contributing Factors Impairments 05/12/25 11:33 Ambulatory Aids Uses ambulatory device 05/12/25 11:33 Tubes/Lines None 05/12/25 11:33 Gait Evaluation W/no contributing factors 05/12/25 11:33 Cognition No cognitive impairment 05/12/25 11:33 Fall Total Score 53 05/12/25 11:33 Level of Risk High Risk 05/12/25 11:33 Problems (Last Reviewed 04/26/25 @ 14:48 by Agustín Day) Difficulty managing medication (Acute) Ketonuria (Acute) Acute dehydration (Acute) Hypomagnesemia (Acute) Acute kidney injury (Acute) Fall (Acute) Schizophrenia (Chronic) Diabetes mellitus (Chronic) v v v v v v v v v Sending and/or Receiving Nurses: Please use comment section below to note any information pertinent to the patient hand-off not included above. Information / Comments:received pt. in the unit medsurg around 2220 per w/c accompanied by CHRISTMAS TREE GROWER named brown,pt just had a full bath/shower prior to admission in his room.With PIV on his Left AC covered with plstic from taking bath. pt. assisted to bed and pt ambulated with walker. situated pt into comfort.VS taken and recorded and bed weight gotten.denies CP,sob,dizzines,nausea and lightheadedness. Report received from:
[2025-05-13 04:07] VITALS: BP 147/88; PULSE 74; RESP 16; TEMP 36.2; O2SAT 98
--- NOTE | 2025-05-13 08:13 | PDOC.CMIN ---
Date of service: 05/13/25 Time of Service: 08:13 Care Management Initial Assmt Advance Directives Advance Directives: Do you have an Advance Directive: Y 07/18/24, 10:44 AD On File at [facility]: Y 07/18/24, 10:44 Date Asked 05/12/25 05/12/25, 11:07 AD Date Reviewed 05/12/25 05/12/25, 21:49 COLST On File at [facility] COLST Date Scanned Code Status Resuscitation Status Full Code Care Team Visit Care Team Role Provider Type Cristina Bro NP MD [facility] STAFF PHYSICIAN Guillaume Kline MD Primary Care Provider [facility] STAFF PHYSICIAN Radha Hawk Other Providers INTERNET MARKETING INTERN Kyra Rai Other Providers INTERNET MARKETING INTERN Natalia Pruitt Other Providers INTERNET MARKETING INTERN Bety Demarco Other Providers OTHER Sudha Lynne RN Other Providers INTERNET MARKETING INTERN Marquita Ayala Other Providers INTERNET MARKETING INTERN Agustín Ignacio MD Emergency Provider [facility] STAFF PHYSICIAN Agustín Day Admit Provider [facility] STAFF PHYSICIAN Attending Provider Social Determinants of Health Screening Social Determinants of health last assessed in clinic: 05/12/25 Will the Patient Participate in the Screening?: Declined to provide Do you worry about having a steady place to live?: no Problems where you live: pests such as bugs, ants or mice In the past 12 months, have you had to go without electric, gas, oil or water in your home?: no Has lack of transportation kept you from medical appointments or from doing things needed for daily living?: no Has anyone in your life made you feel unsafe or unsupported?: no How hard is it for you to pay for the very basics like food, housing, medical care, and heating? Would you say it is:: Not hard at all Do you want help finding or keeping work or a job?: Yes, help keeping work If for any reason you need help with day-to-day activities such as bathing, preparing meals, shopping, managing finances, etc., do you get the help you need?: I get all the help I need How often do you feel lonely or isolated from those around you?: Sometimes Do you speak a language other than Indonesian at home?: No Health Related Social Needs Health related social needs: inadequate housing (Z59.1), problems finding work (Z56.9) and feeling lonely/isolated (Z60.8) Health related social needs details: needs some good support group PFSH All Active Problems (Updated 05/12/25 @ 21:36 by REYNA LERMA) Difficulty managing medication (Acute) Ketonuria (Acute) Acute dehydration (Acute) Hypomagnesemia (Acute) Acute kidney injury (Acute) Orthostasis (Acute) Hip pain (Acute) Fall (Acute) Iron deficiency anemia (Acute) Schizophrenia (Chronic) Symptomatic anemia (Acute) Diabetes mellitus (Chronic) work on weight loss keep active A1c Obesity (BMI 30-39.9) (Acute 10/04/17) Medical History Fall Diarrhea Impacted [place]umen of [place] [facility] [place] Depression Anxiety Rectus diastasis (12/06/16) Dental caries (12/06/16) Surgical History No significant past surgical history Family History Mother No problems noted. Father Neoplasm BLADDER Sister Depression Sister No problems noted. Brother Heart disease Asthma Daughter No problems noted. Social History Smoking/Tobacco Use Status: Former Tobacco Use tobacco type: cigarettes Tobacco: How many years used: 4 Second Hand Exposure: Yes Smoking risk assessment performed?: Yes Alcohol Intake: former Drug use: Never Substance use type: does not use Caregiver/Support person: No Household members: none Housing: apartment Communication Needs: Corrective Lenses Do you need help understanding health information?: Rarely Pets and animals: No Sexually active: No Do you think of yourself as: straight/heterosexual Current gender identity: male What is your relationship status?: How often do you talk on the phone with friends or family?: three or more times per week How often do you get together with friends or relatives?: three or more times per week How often do you attend druze or gnosticism services?: 4 or more times per year Do you belong to any clubs or organized social groups?: no Panel score (0-1 are the most socially isolated patients): 2 What type of physical activity do you participate in: walking Duration: 15-30 minutes/day Frequency: 3-4 times per week Izzy/Adventism: Pentecostal Special izzy needs: No Seatbelt use: always Drive intox or ride w/intox sprinkler driver: No Do you feel safe at home: Yes Do you feel safe in your relationship?: Yes
[2025-05-13 08:21] VITALS: BP 148/86; PULSE 86; RESP 17; TEMP 36.6; O2SAT 99
--- NOTE | 2025-05-13 08:58 | PT.INTREAT ---
PT Notes Visit Reasons: Weak; Ambulatory Dysfunction; Falls
[2025-05-13 10:12] LABS: Abs Immature Grans 0.02 10^3/uL (0.0-0.06); HCT 33.0 % (40.0-50.0); HGB 10.4 g/dL (13.5-17.5); Immature Grans % 0.2 %; MCH 27.7 pg (27.0-33.0); MCHC 31.5 % (32.0-36.0); MCV 88 fL (80-95); MPV 8.7 fL (8.0-11.0); Platelet Count 222 10^3/uL (130-400); RBC 3.76 10^6/uL (4.36-5.78); RDW 13.5 % (11.8-14.1); RDW-SD 43.6 fL; WBC 8.05 10^3/uL (4.4-10.8)
--- NOTE | 2025-05-13 10:17 | PDOC.CMIN ---
Date of service: 05/13/25 Time of Service: 10:17 Care Management Initial Assmt Initial Assessment Reason for Hospitalization: acute dehydration Functional Status/Living Situation Patient Presentation: Kirt presented to the ED yesterday morning s/p a fall. He was noted to have incomplete medication dosing at home and he presented to the ED with confusion. He was treated with IVF and magnesium supplementation. Eh was sitting up in the bedside chair, where he was for most of the day, when CM met with him. He was very pleasant. Eh lives at the [facility], and stated that he is very involved in their activities, including exercise classes, and that he has a lot of friends there. He takes advantage of the lunch time meal site, and usually makes a sandwich for lunch. He has housemates that help him with his shopping and such. Eh is also followed closely by [facility]. He does not have med drop offs with them, but they were called when he was in the ER. Mirtha has been working as Andrés's case supervisor since that ER visit, and she has been visiting him daily since. She has placed referrals for him at [facility] and at [facility]. Eh has been in the ER 4x in about 2 weeks, all for falls. He is working with PT here, and is open to HH PT when he goes home. Per Mirtha, Eh's POA is his sister. CM asked Mirtha to bring that paperwork with her when she visits Eh today. Town of Residence: [facility] Resides with: Alone Significant Other/Family: Out of area ([place]) Natural Supports: SisterJenny Employment Status: Retired (worked for [employer] in both [place] and [facility] at different times) Instrumental Activities of Daily Living (ADLs): Independent Activities/Hobbies/SocialSupport: Eh really enjoys the activities at the [facility]. Loves to play cards Medications Medication Management: Issues/Barriers with Instructions/Directions (Eh stated that he often falls asleep before his night time meds. CM encouraged him to set an alarm) Physical Functioning/Mobility Assistive Device: walker Advance Directives Advance Directives: Do you have an Advance Directive: Y 07/18/24, 10:44 AD On File at [facility]: Y 07/18/24, 10:44 Date Asked 05/12/25 05/12/25, 11:07 AD Date Reviewed 05/12/25 05/12/25, 21:49 COLST On File at [facility] COLST Date Scanned Code Status Resuscitation Status Full Code Insurance Coverage/Financial Issues Insurance: Medicare Part A & B Care Team Visit Care Team Role Provider Type Cristina Bro NP MD [facility] STAFF PHYSICIAN Guillaume Kline MD Primary Care Provider [facility] STAFF PHYSICIAN Radha Hawk Other Providers DENTAL SCHEDULER Kyra Rai Other Providers DENTAL SCHEDULER Natalia Pruitt Other Providers DENTAL SCHEDULER InPatient Gómez Demarco Other Providers OTHER Sudha Lynne RN Other Providers DENTAL SCHEDULER Marquita Ayala Other Providers DENTAL SCHEDULER Agustín Ignacio MD Emergency Provider [facility] STAFF PHYSICIAN Agustín Day Admit Provider [facility] STAFF PHYSICIAN Attending Provider Discharge Potential Discharge Needs: PCP F/U Appt and Other (continued [facility] support and possible psychiatric hospitalization) Anticipated Barriers to Discharge: None Identified Patient/Family Education Needs: Review discharge instructions, discuss Ask Me Three Transportation: RCT RCT Transportation: Private [facility] Plan: Andrés will likely discharge home tomorrow with new services of [facility] RN and PT. He will f/u with his PCP , [facility] and continue per his plan of care. CM will continue to follow and to update the plan as needed. Social Determinants of Health Screening Social Determinants of health last assessed in clinic: 05/12/25 Will the Patient Participate in the Screening?: Declined to provide Do you worry about having a steady place to live?: no Problems where you live: pests such as bugs, ants or mice In the past 12 months, have you had to go without electric, gas, oil or water in your home?: no Has lack of transportation kept you from medical appointments or from doing things needed for daily living?: no Has anyone in your life made you feel unsafe or unsupported?: no How hard is it for you to pay for the very basics like food, housing, medical care, and heating? Would you say it is:: Not hard at all Do you want help finding or keeping work or a job?: Yes, help keeping work If for any reason you need help with day-to-day activities such as bathing, preparing meals, shopping, managing finances, etc., do you get the help you need?: I get all the help I need How often do you feel lonely or isolated from those around you?: Sometimes Do you speak a language other than American at home?: No Health Related Social Needs Health related social needs: inadequate housing (Z59.1), problems finding work (Z56.9) and feeling lonely/isolated (Z60.8) Health related social needs details: needs some good support group PFSH All Active Problems (Updated 05/13/25 @ 14:09 by Cristina Bro NP) Difficulty managing medication (Acute) Ketonuria (Acute) Acute dehydration (Acute) Hypomagnesemia (Acute) Acute kidney injury (Acute) Orthostasis (Acute) Hip pain (Acute) Fall (Acute) Iron deficiency anemia (Acute) Schizophrenia (Chronic) Symptomatic anemia (Acute) Diabetes mellitus (Chronic) work on weight loss keep active A1c Obesity (BMI 30-39.9) (Acute 10/04/17) Medical History Fall Diarrhea Impacted cerumen of both ears [place]icard[place]15[place] [facility] [place]ard[place] Depression Anxiety Rectus diastasis (12/06/16) Dental caries (12/06/16) Surgical History No significant past surgical history Family History Mother No problems noted. Father Neoplasm BLADDER Sister Depression Sister No problems noted. Brother Heart disease Asthma Daughter No problems noted. Social History Smoking/Tobacco Use Status: Former Tobacco Use tobacco type: cigarettes Tobacco: How many years used: 4 Second Hand Exposure: Yes Smoking risk assessment performed?: Yes Alcohol Intake: former Drug use: Never Substance use type: does not use Caregiver/Support person: No Household members: none Housing: apartment Communication Needs: Corrective Lenses Do you need help understanding health information?: Rarely Pets and animals: No Sexually active: No Do you think of yourself as: straight/heterosexual Current gender identity: male What is your relationship status?: How often do you talk on the phone with friends or family?: three or more times per week How often do you get together with friends or relatives?: three or more times per week How often do you attend congregation or hoahaoism services?: 4 or more times per year Do you belong to any clubs or organized social groups?: no Panel score (0-1 are the most socially isolated patients): 2 What type of physical activity do you participate in: walking Duration: 15-30 minutes/day Frequency: 3-4 times per week Izzy/Yazidi: Nondenominational Special izzy needs: No Seatbelt use: always Drive intox or ride w/intox medical driver: No Do you feel safe at home: Yes Do you feel safe in your relationship?: Yes
[2025-05-13 10:25] LABS: Anion Gap 5.5 mmol/L (3-11); BUN 22 mg/dL (7-18); CO2 30.5 mmol/L (21.0-32.0); Calcium 8.7 mg/dL (8.5-10.1); Chloride 101 mmol/L (98-107); Glucose 187 mg/dL (74-106); Magnesium 1.4 mg/dL (1.8-2.4); Potassium 4.3 mmol/L (3.5-5.1); Sodium 137 mmol/L (136-145)
[2025-05-13] MEDS: ARIPiprazole 15 MG TAB 30 MG PO (11:18)
[2025-05-13] MEDS: clonazePAM 0.5 MG TAB PO ×2 (11:19→21:20)
[2025-05-13] MEDS: DULoxetine 30 MG CAP 60 MG PO (11:19)
[2025-05-13] MEDS: Acetaminophen 325 MG TAB 650 MG PO (11:20)
[2025-05-13] MEDS: metFORMIN 500 MG TAB 1000 MG PO ×2 (11:20→21:21)
[2025-05-13] MEDS: Ferrous Sulfate 325 MG TAB PO (11:22)
[2025-05-13] MEDS: Benztropine 1 MG TAB 0.5 MG PO ×2 (11:22→21:20)
[2025-05-13] MEDS: MAGNESIUM SULFATE 2 GM/50 ML BAG IV_INF (11:23)
[2025-05-13] MEDS: Normal Saline Flush 10 ML SYR IVP (11:25)
[2025-05-13 11:34] VITALS: BP 151/80; PULSE 96; RESP 17; TEMP 36.5; O2SAT 99
--- NOTE | 2025-05-13 12:28 | PT.INTREAT ---
PT Notes Visit Reasons: Weak; Ambulatory Dysfunction; Falls Date: 05/13/2025 PRECAUTIONS:fall risk, Contact precautions SUBJECTIVE: Pt stated they felt well today, and eager to get up and start moving. Post 90 feet, patient mentioned his knees were shaking a little. PT let him know that was from him working his legs. Pt didn’t realize his R forearm was shaking a little until DPTS pointed it out. When asked if he needed to sit post 90 feet, pt wanted to continue for one more lap. OBJECTIVE: Pt presented seated in chair legs dangling. Mild edema BLE knee to toes. PAIN: No reported pain VITALS: Monitored by nursing Therapeutic Activities (20565x[]): Direct one-on-one instruction in dynamic activities to improve functional performance. BED MOBILITY/TRANSFERS Sit-stand: supervision Stand-sit: independent Provided skilled cues and instruction on performance and technique throughout. ambulation Assistive Device: FWW Weight bearing: as tolerated Assist: Contact Guard Distance: 123 feet in room d/t contact precautions unable to leave room Deviation: Tremor in R forearm post 90 feet. Exercises : BLE Ankle pumps: 2x8 Leg extensions: 2x10 Seated Marches: 2x10 Sit to stands: 5 reps, 4 with hands on FWW, one with hands on chair. Provided skilled instruction in proper exercise performance Provided skilled manual cues to facilitate proper muscle recruitment for quads, and hipflexors. ASSESSMENT: Pt tolerated activity well today. Patient was able to sit to stand with FWW without assistance as compared to evaluation in ED, and able to ambulate continuously in the room for a total of 123 feet. Pt didn’t have any tremors in hands until the last lap (about 90 feet). Patient had no difficulties breathing, headaches, pain, or dizziness. On the fourth lap, DPTS noticed pt started to have a tremor in his right hand as he walked with the FWW. As the pt walked, his brittni was decreased, step height and length were normal, and he had no difficulties maintain up right support. Pt would benefit from skilled physical therapy to help with his activity tolerance post 123 feet, strengthening and balance. At end of session, Pt was instructed in how to recline the chair to elevate his LEs to reduce edema PLAN: 1-2x/day, 7 days/week x 1 week. Plan of care has been reviewed with the PRIMER WATERPROOFING MACHINE ADJUSTER providing the service under Physical Therapy direction. Initiate Physical Therapy intervention for strengthening, bed mobility, transfers, gait, stairs, balance training, use of assistive device. TREATMENT CODE/TIME: [id number]/ 10:20-10:43 23 total minutes DISCHARGE RECOMMENDATION: HHPT Written By: GABY Taveras Supervised BY: Jackelin Yeung, PT [place] [facility]
--- NOTE | 2025-05-13 13:30 | NUR.NOTE ---
Access chart to determine disposition for [facility]. Nursing Note:
[2025-05-13 15:44] VITALS: BP 155/83; PULSE 89; RESP 17; TEMP 36.7; O2SAT 97
--- NOTE | 2025-05-13 18:01 | PGE_ITS ---
Date of Service Date of service: 05/13/25 Time of Service: 18:01 Assessment and Plan Assessment and plan (1) Acute dehydration: Status: Chronic Assessment and plan: Resolved, encourage oral fluids (2) Hypomagnesemia: Status: Acute Assessment and plan: Replete magnesium orally Trend (3) Acute kidney injury: Status: Acute Assessment and plan: Cr baseline now 1.3 Monitor renal function and electrolytes Hold nephrotoxic or sedating meds as clinically indicated (4) Fall: Status: Acute Assessment and plan: PT/OT evaluation for mobility and fall risk (5) Schizophrenia: Status: Chronic Assessment and plan: EKG monitoring for QTc given multiple psychotropic medications Continue duloxetine, aripiprazole, quietiapine, benztropine, clonazepam (6) Diabetes mellitus: Status: Chronic Assessment and plan: Diabetic diet, hold metformin SSI FS ACHS (7) Difficulty managing medication: Status: Acute Assessment and plan: Care management for medication organization and home health support. Home health nursing on discharge Subjective Subjective Patient reports: no new complaints, tolerating liquids well, tolerating a regular diet, voiding w/o difficulty, bowel movement and afebrile; denies diarrhea or vomiting Interval history since last seen: Andrés is much better today, reports improvement, eating and drinking, up without assistance, states he is feeling weak. Exam Narrative Exam Narrative: * General: Chronically ill-appearing male, no acute distress, speaking in full sentences * HEENT: Normocephalic, atraumatic; PERRLA, EOMI; no icterus * Neck: Supple, trachea midline * Cardiac: RRR, no murmurs; distal pulses intact * Respiratory: Clear to auscultation bilaterally, nonlabored respirations * Abdomen: Soft, nondistended, nontender * Extremities: * Right forearm: Tenderness and ecchymosis dorsally (no acute fracture or dislocation) * Right hip: Pain with passive ROM, no deformity (no acute fx or dislocation) * Bilateral calves: Mild tenderness, no cords, pulses intact * Neuro: Alert, GCS 15, no focal deficits * Psych: Flat affect, no agitation or pressured speech * Skin: Warm, dry, no rash Objective Last Vital Signs Temp 36.7 C 05/13/25 15:44 Pulse 89 05/13/25 15:44 Resp 17 05/13/25 15:44 BP 155/83 H 05/13/25 15:44 Pulse Ox 97 05/13/25 15:44 Laboratory Results - last 24 hr 05/13/25 10:05 WBC 8.05 RBC 3.76 L Hgb 10.4 L Hct 33.0 L MCV 88 MCH 27.7 MCHC 31.5 L RDW 13.5 Plt Count 222 MPV 8.7 Immature Gran % 0.2 Neutrophils % 64.0 Lymphocytes % 21.9 Monocytes % 9.9 Eosinophils % 3.5 Basophils % 0.5 Nucleated RBC % 0.0 Absolute Neutrophils 5.15 Absolute Lymphocytes 1.76 Absolute Monocytes 0.80 Absolute Eosinophils 0.28 Absolute Basophils 0.04 Sodium 137 Potassium 4.3 Chloride 101 Carbon Dioxide 30.5 Anion Gap 5.5 BUN 22 H Creatinine 1.3 Est GFR (CKD-EPI 2020) 57.65 Glucose 187 H Calcium 8.7 Magnesium 1.4 L PAWSS Have you Been Recently Intoxicated or Drunk Within the Last 30 days?: No Have you Ever Experienced Previous Episodes of Alcohol Withdrawal?: No Have you ever Experienced Withdrawal Seizures?: No Have you ever Experienced Delirium Tremens(DT)s?: No Have you ever undergone Alcohol Rehabilitation Treatment (i.e, inpt ot outpatient treatment programs)?: No Have you ever Experienced Blackouts?: No Have you ever Combined Alcohol with other Downers within the last 90 days?: No Have you ever Combined Alcohol with any other Substance of Abuse during the last 90 days?: No Positive Blood Alcohol level on Presentation? [PCS.BAL]: No Evidence of Increased Autonomic Activity (i.e. HR>120, tremor, sweating, agitation, nausea)?: No Result: 0 Time Spent with Patient Time Spent with Patient: 25-34 minutes Time was spent: preparing to see the patient(eg.review tests), ordering medications,tests, procedures, referring, communicating with other health child care development specialist, indepentently interpreting results, counseling the patient and care coordination
[2025-05-13 20:45] VITALS: BP 133/74; PULSE 80; RESP 18; TEMP 36.3; O2SAT 94
[2025-05-13] MEDS: Atorvastatin 10 MG TAB PO (21:20)
[2025-05-13] MEDS: QUEtiapine 100 MG TAB 200 MG PO (21:20)
[2025-05-13 23:28] VITALS: BP 148/74; PULSE 88; RESP 17; TEMP 36.4; O2SAT 95
[2025-05-14 03:00] VITALS: BP 133/83; PULSE 92; RESP 17; TEMP 36.3; O2SAT 97
[2025-05-14 03:37] VITALS: BP 126/66; PULSE 70; RESP 17; TEMP 37.5; O2SAT 93
[2025-05-14 06:42] LABS: Abs Immature Grans 0.01 10^3/uL (0.0-0.06); HCT 31.3 % (40.0-50.0); HGB 9.8 g/dL (13.5-17.5); Immature Grans % 0.1 %; MCH 27.5 pg (27.0-33.0); MCHC 31.3 % (32.0-36.0); MCV 88 fL (80-95); MPV 9.0 fL (8.0-11.0); Platelet Count 216 10^3/uL (130-400); RBC 3.56 10^6/uL (4.36-5.78); RDW 13.5 % (11.8-14.1); RDW-SD 43.8 fL; WBC 7.32 10^3/uL (4.4-10.8)
[2025-05-14 06:59] LABS: Anion Gap 4.6 mmol/L (3-11); BUN 18 mg/dL (7-18); CO2 31.4 mmol/L (21.0-32.0); Calcium 8.7 mg/dL (8.5-10.1); Chloride 104 mmol/L (98-107); Glucose 107 mg/dL (74-106); Magnesium 1.7 mg/dL (1.8-2.4); Potassium 3.9 mmol/L (3.5-5.1); Sodium 140 mmol/L (136-145)
[2025-05-14 07:49] VITALS: BP 152/73; PULSE 93; RESP 16; TEMP 36.4; O2SAT 98
[2025-05-14] MEDS: Benztropine 1 MG TAB 0.5 MG PO (08:22)
[2025-05-14] MEDS: ARIPiprazole 15 MG TAB 30 MG PO (08:22)
[2025-05-14] MEDS: clonazePAM 0.5 MG TAB PO (08:22)
[2025-05-14] MEDS: metFORMIN 500 MG TAB 1000 MG PO (08:22)
[2025-05-14] MEDS: DULoxetine 30 MG CAP 60 MG PO (08:22)
[2025-05-14] MEDS: Ferrous Sulfate 325 MG TAB PO (08:23)
[2025-05-14] MEDS: Acetaminophen 325 MG TAB 650 MG PO (08:29)
[2025-05-14] MEDS: Ibuprofen 600 MG TAB PO (08:30)
--- NOTE | 2025-05-14 10:27 | DSE_ITS ---
Date of service: 05/14/25 Time of Service: 10:27 DS: Diagnosis Discharge Diagnosis (1) Acute dehydration: Status: Chronic (2) Hypomagnesemia: Status: Acute (3) Acute kidney injury: Status: Acute (4) Fall: Status: Acute (5) Schizophrenia: Status: Chronic (6) Diabetes mellitus: Status: Chronic (7) Difficulty managing medication: Status: Acute Discharge Plan Disposition Patient Disposition: Home W/Home Health Services Condition: Improving Discharge Details Reason For Visit: Weak; Ambulatory Dysfunction; Falls Admit Date/Time: 05/12/25 17:11 Admit Provider: Agustín Day Attending Provider: Agustín Day Primary Care Provider: Guillaume Kline Hospital Course Hospital Course: 74-year-old male admitted with acute dehydration, hypomagnesemia, acute kidney injury, and fall in the setting of medication disorganization and inconsistent adherence. He was treated with IV fluids, which resulted in improvement of kidney function (creatinine improved from 2.2 to near baseline1.3). Magnesium was repleted. PT evaluated him and recommended home health physical therapy due to impaired balance, gait instability, and fall risk. We will arrange home health nursing services and PT to provide medication support and physical therapy. I spoke with his pharmacy and he does receive his medication in pill packs currently. He was medically stable on discharge. Home Meds and New Rx's Prescriptions: New magnesium chloride 64 mg magnesium tablet 64 mg PO DAILY Qty: 30 0RF Continued atorvastatin 10 mg tablet 10 mg PO QPM Qty: 90 3RF ferrous sulfate [FeroSul] 325 mg (65 mg iron) tablet 325 mg PO DAILY Qty: 90 3RF ibuprofen 600 mg tablet 600 mg PO Q8H PRN metformin 1,000 mg tablet 1,000 mg PO BID Qty: 180 3RF duloxetine [Cymbalta] 60 mg capsule,delayed release(DR/EC) 60 mg PO DAILY Qty: 90 3RF aripiprazole [Abilify] 30 mg tablet 30 mg PO DAILY Qty: 90 3RF quetiapine 200 mg tablet extended release 24 hr 200 mg PO QHS Qty: 90 3RF benztropine 0.5 mg tablet 0.5 mg PO BID Qty: 180 3RF loratadine 10 mg tablet 10 mg PO DAILY Qty: 30 2RF clonazepam 0.5 mg tablet 0.5 mg PO BID Qty: 60 2RF acetaminophen 325 mg capsule 650 mg PO Q6H PRN PRNQty: 60 0RF Discharge Instructions Additional Instructions: Follow-up: * PCP follow-up in 1 week to reassess renal function and medication management. * Start Magnesium 64 mg daily. * Continue all home medications. * Continue to work collaboratively with [facility] regarding psychiatric follow-up and medication support. Stand Alone Forms: Portal Information, Nursing Discharge Form Referrals: Guillaume Kline MD [Primary Care Provider, Medicine] Referral Note: Your PCP will call you with a follow up appointment, if you do not hear from them, please reach out. Activity:: Activity as Tolerated Equipment/Supplies:: No Equipment Needed Diet:: As Tolerated Discharge Orders Discharge Orders: Discharge Order (Routine); Ordered 05/14/25 Ordered By: Cristina Bro Discharge Data Discharge Date/Time-TO BE ENTERED AT DEPARTURE: 05/14/25 12:55 DS: Summary Time Spent with Patient providing and/or coordinating discharge services: Greater than 30 minutes Status at Discharge Functional status at discharge: uses cane/walker Overall status at discharge: patient is back to baseline Mental Status: mental status grossly normal Speech and Movement: speech and movement normal Mood: congruent mood Affect: normal affect Quality:SDOH Health Related Social Needs: Health related social needs inadequate housing finding work lonely/isolated Health related social needs details needs some good [place] pport group Health related social needs details: needs some good support group Exam Narrative Exam Narrative: * General: Chronically ill-appearing male, no acute distress, speaking in full sentences * HEENT: Normocephalic, atraumatic; PERRLA, EOMI; no icterus * Neck: Supple, trachea midline * Cardiac: RRR, no murmurs; distal pulses intact * Respiratory: Clear to auscultation bilaterally, nonlabored respirations * Abdomen: Soft, nondistended, nontender * Extremities: * Right forearm: Tenderness and ecchymosis dorsally (no acute fracture or dislocation) * Right hip: Pain with passive ROM, no deformity (no acute fx or dislocation) * Bilateral calves: Mild tenderness, no cords, pulses intact * Neuro: Alert, GCS 15, no focal deficits * Psych: Flat affect, no agitation or pressured speech * Skin: Warm, dry, no rash Psych Mental Status: mental status grossly normal Speech and Movement: speech and movement normal Mood: congruent mood Affect: normal affect DS: Data Vitals/I&O Vitals and I&O: Vital Signs Temperature 36.4 C L 05/14/25 07:49 Temperature Source Temporal Artery Scan 05/14/25 07:49 Pulse 93 H 05/14/25 07:49 Pulse 82 05/12/25 20:50 Respiratory Rate 16 05/14/25 07:49 Respiratory Effort Normal 05/12/25 22:40 Respiratory Depth Normal 05/12/25 22:40 Respiratory Pattern Normal 05/12/25 22:40 Blood Pressure 152/73 H 05/14/25 07:49 Blood Pressure Mean 99 05/14/25 07:49 Blood Pressure Position Sitting 05/12/25 10:56 Pulse Oximetry 98 05/14/25 07:49 Oxygen Delivery Method Room Air 05/14/25 07:49 Oxygen Flow Rate 0 05/14/25 07:49 Pain Level 6 05/14/25 08:30 Intake & Output 05/13/25 05/13/25 05/14/25 11:59 23:59 11:59 Intake Total 250 / 250 360 / 360 Balance 250 / 250 360 / 360 Intake: IV Oral 240 / 240 360 / 360 Other: Urine Color Yellow Yellow Yellow Urine Appearance Clear Clear Clear Urine Odor Normal Normal None Comment bsc Stool Size Moderate Moderate Stool Characteristics Soft Formed Data Completed and Pending Pending Labs at Discharge: 05/12/25 05/12/25 05/12/25 11:30 14:20 15:26 WBC 8.28 RBC 3.43 L Hgb 9.9 L Hct 30.7 L MCV 90 MCH 28.9 MCHC 32.2 RDW 13.7 Plt Count 225 MPV 8.9 Immature Gran % 0.2 Neutrophils % 63.6 Lymphocytes % 22.8 Monocytes % 9.4 Eosinophils % 3.4 Basophils % 0.6 Nucleated RBC % 0.0 Absolute Neutrophils 5.26 Absolute Lymphocytes 1.89 Absolute Monocytes 0.78 Absolute Eosinophils 0.28 Absolute Basophils 0.05 Sodium 140 Potassium 4.7 Chloride 102 Carbon Dioxide 29.5 Anion Gap 8.5 BUN 31 H Creatinine 2.2 H Est GFR (CKD-EPI 2020) 30.66 Glucose 97 Calcium 8.8 Magnesium 1.5 L Total Bilirubin 0.4 AST 5 L ALT 40 Alkaline Phosphatase 76 Creatine Kinase 371 H Troponin I 15 18 Total Protein 8.1 Albumin 3.6 TSH 2.70 Urine Color Yellow Urine Clarity Clear Urine pH 5.5 Ur Specific Brandywine 1.015 Urine Protein Negative Urine Ketones Trace H Urine Blood Negative Urine Nitrite Negative Urine Bilirubin Negative Urine Urobilinogen 0.2 Ur Leukocyte Esterase Negative Ur Random Creatinine 102.95 Ur Random Sodium 43 Urine Glucose Negative Salicylates < 2.8 Acetaminophen 5 Ethyl Alcohol < 3.0 05/13/25 05/14/25 10:05 06:08 WBC 8.05 7.32 RBC 3.76 L 3.56 L Hgb 10.4 L 9.8 L Hct 33.0 L 31.3 L MCV 88 88 MCH 27.7 27.5 MCHC 31.5 L 31.3 L RDW 13.5 13.5 Plt Count 222 216 MPV 8.7 9.0 Immature Gran % 0.2 0.1 Neutrophils % 64.0 41.8 Lymphocytes % 21.9 41.9 Monocytes % 9.9 8.9 Eosinophils % 3.5 6.6 Basophils % 0.5 0.7 Nucleated RBC % 0.0 0.0 Absolute Neutrophils 5.15 3.06 Absolute Lymphocytes 1.76 3.07 Absolute Monocytes 0.80 0.65 Absolute Eosinophils 0.28 0.48 Absolute Basophils 0.04 0.05 Sodium 137 140 Potassium 4.3 3.9 Chloride 101 104 Carbon Dioxide 30.5 31.4 Anion Gap 5.5 4.6 BUN 22 H 18 Creatinine 1.3 1.2 Est GFR (CKD-EPI 2020) 57.65 63.46 Glucose 187 H 107 H Calcium 8.7 8.7 Magnesium 1.4 L 1.7 L Total Bilirubin AST ALT Alkaline Phosphatase Creatine Kinase Troponin I Total Protein Albumin TSH Urine Color Urine Clarity Urine pH Ur Specific Brandywine Urine Protein Urine Ketones Urine Blood Urine Nitrite Urine Bilirubin Urine Urobilinogen Ur Leukocyte Esterase Ur Random Creatinine Ur Random Sodium Urine Glucose Salicylates Acetaminophen Ethyl Alcohol PFSH All Active Problems (Updated 05/13/25 @ 18:29 by Cristina Bro NP) Difficulty managing medication (Acute) Ketonuria (Acute) Acute dehydration (Chronic) Hypomagnesemia (Acute) Acute kidney injury (Acute) Orthostasis (Acute) Hip pain (Acute) Fall (Acute) Iron deficiency anemia (Acute) Schizophrenia (Chronic) Symptomatic anemia (Acute) Diabetes mellitus (Chronic) work on weight loss keep active A1c Obesity (BMI 30-39.9) (Acute 10/04/17) Medical History Fall Diarrhea Impacted cerumen of both ears Pericarditis 10/15/18; [facility] Pericarditis Depression Anxiety Rectus diastasis (12/06/16) Dental caries (12/06/16) Surgical History No significant past surgical history Family History Mother No problems noted. Father Neoplasm BLADDER Sister Depression Sister No problems noted. Brother Heart disease Asthma Daughter No problems noted. Social History Smoking/Tobacco Use Status: Former Tobacco Use tobacco type: cigarettes Tobacco: How many years used: 4 Second Hand Exposure: Yes Smoking risk assessment performed?: Yes Alcohol Intake: former Drug use: Never Substance use type: does not use Caregiver/Support person: No Household members: none Housing: apartment Communication Needs: Corrective Lenses Do you need help understanding health information?: Rarely Pets and animals: No Sexually active: No Do you think of yourself as: straight/heterosexual Current gender identity: male What is your relationship status?: How often do you talk on the phone with friends or family?: three or more times per week How often do you get together with friends or relatives?: three or more times per week How often do you attend yarsani or pentecostalism services?: 4 or more times per year Do you belong to any clubs or organized social groups?: no Panel score (0-1 are the most socially isolated patients): 2 What type of physical activity do you participate in: walking Duration: 15-30 minutes/day Frequency: 3-4 times per week Izzy/Roman Catholic: Taoism Special izzy needs: No Seatbelt use: always Drive intox or ride w/intox customer service driver: No Do you feel safe at home: Yes Do you feel safe in your relationship?: Yes Time Spent with Patient Time Spent with Patient: 45-69 minutes Time was spent: preparing to see the patient(eg.review tests), ordering medications,tests, procedures, referring, communicating with other health child care center administrator, indepentently interpreting results, counseling the patient and care coordination
[2025-05-14] MEDS: Magnesium Chloride 64 MG TABCR PO (11:21)
[2025-05-14 11:26] VITALS: BP 149/76; PULSE 106; RESP 16; TEMP 36.6; O2SAT 95
--- NOTE | 2025-05-14 12:04 | PDOC.CMDIS ---
Date of service: 05/14/25 Time of Service: 12:05 LACE Index Scoring Tool Questions: Length of Stay (in days): 2 Was the patient admitted via the E.D.?: Yes E.D. Visits: 4 Answers: Total Score: 9 Risk of Readmission: Low Risk Care Management Discharge Plan Reason for Hospitalization: dehydration, s/p falls Discharge Plan: Andrés is discharging home today with a continuation of his HH PT. [facility] was notified of his discharge. Eh will f/u with his PCP and continue per his plan of care. Andrés will transport home via [facility] private vehicle. Patient/Family Education Needs: Review of discharge instructions, activity, limitations and discuss Ask me 3. Services Needed at Discharge: Home Health Care Services (PT and SN) SDOH Health Related Social Needs: Health related social needs inadequate housing finding work lonely/isolated Health related social needs details needs some good support group Health related social needs details: needs some good support group
--- NOTE | 2025-05-14 12:25 | PDOC.HHF2F_ITS ---
Date of service: 05/14/25 Time of Service: 12:25 Home Health Referral Home Health Orders Clinical synopsis of why skilled professionals are needed: 74-year-old male admitted with acute dehydration, hypomagnesemia, acute kidney injury, and fall in the setting of medication disorganization and inconsistent adherence. He was treated with IV fluids, which resulted in improvement of kidney function (creatinine improved from 2.2 to near baseline1.3). Magnesium was repleted. PT evaluated him and recommended home health physical therapy due to impaired balance, gait instability, and fall risk. We will arrange home health nursing services and PT to provide medication support and physical therapy. I spoke with his pharmacy and he does receive his medication in pill packs currently. He was medically stable on discharge. Medical diagnosis necessitation home health referral: Medication disorganization; at risk for dehydration, electrolyte imbalance Registered Nurse: Check all that apply Instruct on new or changed medication(s)/assess compliance: Ordered Other: I called his pharmacy and he does already have medication bubble packs. Physical Therapist: Check all that apply Increase strength & endurance for safe mobility at home: Ordered To design/establish home maintenance program: Ordered Fall reduction therapy program for patient with history of frequent falls: Ordered Home safety evaluation and teaching/gait training including stair management (if applicable): Ordered Home Bound Status Requires the aid of supportive device (check all that apply): Walker Patient has a condition such that leaving home is medically contraindicated (Describe): Unable to independently leave his home; at risk for injury, getting lost, dehydration, hypothermia Describe why leaving home would require a considerable and taxing effort: Confusion and Safety Concerns: describe Encounter Date and Reason: I certify that a FTF encounter for this patient was performed on May 14, 2025 and that such encounter was related to the primary reason the patient requires home health services. The encounter was conducted in the following manner: * By me as the certifying physician, MINE SAFETY DIRECTOR, PA or * By an inpatient physician, MINE SAFETY DIRECTOR or PA during an inpatient stay who communicated findings to me, Certification And Authentication I certify that I composed the above information based on my clinical judgment relating to this patient's medical condition and, if applicable, clinical findings communicated to me by the NPP or inpatient physician who performed the FTF encounter. Name of Provider that will be monitoring home health services: Guillaume Kline
== END 2025-05-14 12:55 | disposition home health service (06) ==
LOC: ER 14:58 → MS 21:35
PROVIDERS: Admitting Provider Family Medicine; Emergency Provider Emergency Medicine; PCP Family Medicine; Responsible Provider Nurse Practitioner Family; Visit Provider Family Medicine
DX: N17.9 Acute kidney failure, unspecified (principal); E86.0 Dehydration; F20.9 Schizophrenia, unspecified; E83.42 Hypomagnesemia; W19.XXXA Unspecified fall, initial encounter; E11.9 Type 2 diabetes mellitus without complications; R29.6 Repeated falls; G89.11 Acute pain due to trauma; M25.551 Pain in right hip; M79.631 Pain in right forearm; Z59.10 Inadequate housing, unspecified; R45.89 Other symptoms and signs involving emotional state; Z91.148 Patient's other noncompliance with medication regimen for other reason; Z79.899 Other long term (current) drug therapy; D50.9 Iron deficiency anemia, unspecified; F32.A Depression, unspecified; F41.9 Anxiety disorder, unspecified; Z79.84 Long term (current) use of oral hypoglycemic drugs
CPT/HCPCS: 00123; 36415; 73552; 80048; 80053; 82550; 93005; 96360; 97161; 97530; 99285; 70450; 71045; 72170; 73090; 80320; 80329; 81003; 82565; 83735; 84300; 84443; 84484; 85025; 93010; 99222; 99232; 99239; G0378; J3475

== ENCOUNTER 2025-05-23 16:34 | Outpatient (REF) | payer MEDICARE, SELFPAY ==
[2025-05-23 17:10] LABS: HCT 30.3 % (40.0-50.0); HGB 9.4 g/dL (13.5-17.5); MCH 27.3 pg (27.0-33.0); MCHC 31.0 % (32.0-36.0); MCV 88 fL (80-95); MPV 9.6 fL (8.0-11.0); Platelet Count 209 10^3/uL (130-400); RBC 3.44 10^6/uL (4.36-5.78); RDW 14.1 % (11.8-14.1); RDW-SD 45.8 fL; WBC 7.46 10^3/uL (4.4-10.8)
[2025-05-23 17:19] LABS: Magnesium 1.4 mg/dL (1.6-2.6)
[2025-05-23 17:20] LABS: Anion Gap 7.2 mmol/L (3-11); BUN 18 mg/dL (9-23); CO2 29.8 mmol/L (20.0-31.0); Calcium 8.7 mg/dL (8.3-10.6); Chloride 103 mmol/L (98-107); Glucose 189 mg/dL (74-106); Potassium 4.4 mmol/L (3.5-5.1); Sodium 140 mmol/L (136-145)
[2025-05-23 17:23] LABS: Iron 25 ug/dL (65-175)
[2025-05-23 17:24] LABS: Total Iron Binding Capacity 284 ug/dL (250-425); Transferrin Sat 9 % (20-55)
[2025-05-23 17:25] LABS: Vitamin B12 172 pg/mL (211-911); Vitamin D 25 Total 18 ng/mL (30-100)
[2025-05-23 17:26] LABS: Ferritin 27 ng/mL (11-307)
== END 2025-05-23 16:35 | disposition home or self-care (01) ==
LOC: LBN 16:34
PROVIDERS: PCP Family Medicine; Visit Provider Nurse Practitioner Family
DX: D50.9 Iron deficiency anemia, unspecified (principal); W19.XXXA Unspecified fall, initial encounter; E11.9 Type 2 diabetes mellitus without complications; E55.9 Vitamin D deficiency, unspecified
CPT/HCPCS: 80048; 82306; 85027; 82607; 82728; 83540; 83550; 83735